=== PATIENT | male | born 1930 | race Caucasian/White ===

== ENCOUNTER → 2016-09-30 | Outpatient (CLI) | payer MEDICARE, BC ==
[2016-06-15 12:00] VITALS: BP 161/72
[~2016-09-30] MED LIST: AMLO10TA4 PO; ASCO-78 PO; CALC0.25 PO; FINA5TAB4 PO; FURO10SO PO; HYDR-971 PO; IRON150C9 PO; LEVO50TA PO; SAW450CA2 PO; TAMS0.4C2 PO; [UNRECOGNIZED DRUG - CODE] IJ
[2016-09-30 08:52] LABS: CALCIUM 9.1 mg/dL (8.5-10.1); GFR 11.1; POTASSIUM 4.3 mmol/L (3.5-5.1)
[2016-09-30 10:32] LABS: BASO % 1 % (0-3); EOS % 2 % (0-3); HEMOGLOBIN 11.9 g/dL (13.0-17.5); LYMPH # 0.7 x10^3/uL (1.0-4.8); LYMPH % 19 % (24-48); MEAN CORPUSCULAR HEMOGLOBIN 33 pg (25-35); MEAN CORPUSCULAR HGB CONC 34 g/dL (31-37); MEAN CORPUSCULAR VOLUME 97 fL (79-100); MONO % 13 % (0-9); NEUT % 66 % (31-73); PLATELET COUNT 103 x10^3/uL (140-400); RED BLOOD COUNT 3.62 x10^6/uL (4.30-5.70); RED CELL DISTRIBUTION WIDTH 13.6 % (11.5-14.5)
== END | disposition home or self-care (01) ==
LOC: LAB 08:11
PROVIDERS: ATTEND Internal Medicine Cardiovascular Disease
DX: I49.5 Sick sinus syndrome (principal)
CPT/HCPCS: 36415; 80048; 83735; 85027

== ENCOUNTER → 2016-10-09 | Outpatient (CLI) | payer MEDICARE, BC ==
[2016-06-15 12:00] VITALS: BP 161/72
[~2016-10-09] MED LIST changes: +BICA50TA4 PO; +FAMO20TA5 PO
== END | disposition home or self-care (01) ==
LOC: LAB 14:27
PROVIDERS: ATTEND Urology
DX: C61 Malignant neoplasm of prostate (principal)
CPT/HCPCS: 36415; 84153; G0103

== ENCOUNTER 2016-10-30 00:48 | Inpatient (IN) | payer MEDICARE, BC ==
[~2016-10-30] VITALS: Ht 172.7 cm; Wt 61.3 kg
[~2016-10-30 00:48] MED LIST changes: -FAMO20TA5 PO
[2016-10-30 01:21] LABS: BASO % 0 % (0-3); EOS % 1 % (0-3); HEMATOCRIT 26.5 % (39.0-53.0); HEMOGLOBIN 8.6 g/dL (13.0-17.5); LYMPH # 0.6 x10^3/uL (1.0-4.8); LYMPH % 8 % (24-48); MEAN CORPUSCULAR HEMOGLOBIN 32 pg (25-35); MEAN CORPUSCULAR HGB CONC 33 g/dL (31-37); MEAN CORPUSCULAR VOLUME 99 fL (79-100); MONO % 12 % (0-9); NEUT % 78 % (31-73); PLATELET COUNT 199 x10^3/uL (140-400); RED BLOOD COUNT 2.69 x10^6/uL (4.30-5.70); RED CELL DISTRIBUTION WIDTH 13.9 % (11.5-14.5); WHITE BLOOD COUNT 7.6 x10^3/uL (4.0-11.0)
[2016-10-30 01:30] LABS: INR 1.2 (0.8-1.1); PROTHROMBIN TIME PATIENT 14.8 SEC (11.7-14.0)
[2016-10-30 01:36] LABS: CREATININE 4.3 mg/dL (0.7-1.3); GFR 13.2; POTASSIUM 4.9 mmol/L (3.5-5.1)
[2016-10-30 01:49] LABS: ALBUMIN/GLOBULIN RATIO 0.9 (1.0-1.7); TOTAL BILIRUBIN 0.8 mg/dL (0.2-1.0); TOTAL PROTEIN 6.2 g/dL (6.4-8.2)
[2016-10-30] MEDS ORDERED: CONTRAST GIVEN MC PRN (02:45)
--- NOTE | 2016-10-30 02:52 | ED.ADGEN ---
Past Medical History Past Medical History: Cancer, CHF, GERD, Hypothyroid, Renal Failure, Unknown, Other Additional Past Medical Histor: BPH, ESRD, PROSTATE CA, WEGENERS GRANULOMATOSIS Past Surgical History: Pacemaker, Other Additional Past Surgical Histo: right dialysis fistula; hernia Additional Information: FORMER X 40 YEARS Alcohol Use: None Drug Use: None Adult General Chief Complaint Chief Complaint: MECHANICAL FALL HPI HPI Patient is a 86 year old man, history of CHF, end-stage renal disease on hemodialysis, which he receives Thursday, Thursday, Thursday, hypothyroidism, who presents emergency department from his nursing facility with report of dizziness. Patient states that he has been feeling lightheaded today, denies any syncope, any vertiginous type symptoms, chest pain, complains of mild shortness of breath, does not use oxygen at baseline, but is noted to be hypoxic in the mid 80s upon arrival to the ED, oxygen saturation improves to the mid 90s on 2 L nasal cannula. Heart rate is in the 60s to 80s. Denies any weakness, or tingling, any injuries. No headache or blurry vision. Patient was noted to be found by the nursing facility sitting on the ground. Patient is oriented 4, states that he lowered himself to the ground when he began feeling lightheaded, slid down against the wall. Did not fall, did not strike his head or neck, and is denying pain in the any areas. As far as he is aware he received a full dialysis on Thursday, denies any complications. Review of Systems Review of Systems Constitutional: Denies fever or chills. [] Eyes: Denies change in visual acuity. [] HENT: Denies nasal congestion or sore throat. [] Respiratory: Denies cough, complaining of shortness of breath. Cardiovascular: Denies chest pain or edema. [] GI: Denies abdominal pain, nausea, vomiting, bloody stools or diarrhea. [] : Denies dysuria. [] Musculoskeletal: Denies back pain or joint pain. [] Integument: Denies rash. [] Neurologic: Denies headache, focal weakness or sensory changes. [Dizziness, described as a lightheadedness.] Endocrine: Denies polyuria or polydipsia. [] Lymphatic: Denies swollen glands. [] Psychiatric: Denies depression or anxiety. [] Current Medications Current Medications Current Medications Medications (Trade) Dose Ordered Sig/Jaylin Start Time Stop Time Status Last Admin Dose Admin Acetaminophen (Tylenol) 650 mg PRN Q4HRS PRN 10/30/16 05:00 10/31/16 04:59 Info (Do NOT chart on this entry -- for MONITORING) 1 each PRN DAILY PRN 10/30/16 02:45 11/01/16 02:44 Iohexol (Omnipaque 300 Mg/ml) 75 ml 1X ONCE 10/30/16 03:00 10/30/16 03:01 DC 10/30/16 03:03 75 ML Allergies Allergies Allergies Coded Allergies Type Severity Reaction Last Updated Verified No Known Drug Allergies 03/20/14 No Physical Exam Physical Exam Constitutional: Well developed, well nourished, no acute distress, non-toxic appearance. [] HENT: Normocephalic, atraumatic, bilateral external ears normal, oropharynx moist, no oral exudates, nose normal. [] Eyes: PERRLA, EOMI, conjunctiva normal, no discharge. [] Neck: Normal range of motion, no tenderness, supple, no stridor. [] Cardiovascular:Heart rate regular rhythm, no murmur, S1, S2, positive for S3 as well. [] Lungs & Thorax: Diminished breath sounds at bases bilaterally with poor air movement, no rhonchi appreciated. No chest wall crepitus or tenderness. [] Abdomen: Bowel sounds normal, soft, no tenderness, no rebound, rigidity, no guarding, no masses, no pulsatile masses. [] Skin: Warm, dry, no erythema, no rash. [] Back: No tenderness, no CVA tenderness. [] Extremities: No tenderness, no cyanosis, no clubbing, ROM intact, no edema. Trace pitting edema bilaterally. Neurologic: Alert and oriented X 3, normal motor function, normal sensory function, no focal deficits noted. [] Psychologic: Affect normal, judgement normal, mood normal. [] Current Patient Data Vital Signs Vital Signs Date Time Temp Pulse Resp B/P Pulse Ox O2 Delivery O2 Flow Rate FiO2 10/30/16 01:18 99.0 65 20 149/65 95 Room Air 99.0 Lab Values Laboratory Tests Test 10/30/16 01:06 White Blood Count 7.6x10^3/uL (4.0-11.0) Red Blood Count 2.69x10^6/uL (4.30-5.70) L Hemoglobin 8.6g/dL (13.0-17.5) L Hematocrit 26.5% (39.0-53.0) L Mean Corpuscular Volume 99fL (79-100) Mean Corpuscular Hemoglobin 32pg (25-35) Mean Corpuscular Hemoglobin Concent 33g/dL (31-37) Red Cell Distribution Width 13.9% (11.5-14.5) Platelet Count 199x10^3/uL (140-400) Neutrophils (%) (Auto) 78% (31-73) H Lymphocytes (%) (Auto) 8% (24-48) L Monocytes (%) (Auto) 12% (0-9) H Eosinophils (%) (Auto) 1% (0-3) Basophils (%) (Auto) 0% (0-3) Neutrophils # (Auto) 5.9x10^3uL (1.8-7.7) Lymphocytes # (Auto) 0.6x10^3/uL (1.0-4.8) L Monocytes # (Auto) 0.9x10^3/uL (0.0-1.1) Eosinophils # (Auto) 0.1x10^3/uL (0.0-0.7) Basophils # (Auto) 0.0x10^3/uL (0.0-0.2) Prothrombin Time 14.8SEC (11.7-14.0) H Prothrombin Time INR 1.2 (0.8-1.1) H PTT 29SEC (24-38) Sodium Level 145mmol/L (136-145) Potassium Level 4.9mmol/L (3.5-5.1) Chloride Level 105mmol/L (98-107) Carbon Dioxide Level 31mmol/L (21-32) Anion Gap 9 (6-14) Blood Urea Nitrogen 43mg/dL (8-26) H Creatinine 4.3mg/dL (0.7-1.3) H Estimated GFR (Cockcroft-Gault) 13.2 BUN/Creatinine Ratio 10 (6-20) Glucose Level 109mg/dL (70-99) H Calcium Level 9.0mg/dL (8.5-10.1) Total Bilirubin 0.8mg/dL (0.2-1.0) Aspartate Amino Transferase (AST) 49U/L (15-37) H Alanine Aminotransferase (ALT) 37U/L (16-63) Alkaline Phosphatase 75U/L (46-116) Troponin I Quantitative 0.043ng/mL (0.000-0.055) AP-Qon-U-Type Natriuretic Peptide 06244sh/mL (0-449) H Total Protein 6.2g/dL (6.4-8.2) L Albumin 3.0g/dL (3.4-5.0) L Albumin/Globulin Ratio 0.9 (1.0-1.7) L Laboratory Tests 10/30/16 01:06 Laboratory Tests 10/30/16 01:06 EKG EKG EC: Sinus rhythm, heart rate 61 bpm, moderate baseline artifact noted, QTc of 406, QRS of 90, abnormal ECG, as interpreted by me. Does not meet STEMI criteria. [] Radiology/Procedures Radiology/Procedures Chest x-ray: One view: Patient noted to have an enlarged cardiac silhouette, concerning for pericardial effusion, no obvious infiltrates or effusions identified. No bony or other lung findings identified. [] [facility] [address] [place], [place] [id number] IMAGING REPORT Signed PATIENT: NELSON POWELL ACCOUNT: [id number] : 1930 LOCATION: ER AGE: 86 SEX: M EXAM STATUS: REG ER ORD. PHYSICIAN: TESS SANTIAGO DO REASON: Hypoxia/SOA/ESRD on HD, will get HD PROCEDURE: CTA CHEST PROCEDURE CT chest with contrast, pulmonary angiogram. HISTORY Hypoxia, shortness of air. End-stage renal disease. TECHNIQUE Helical CT imaging of the chest is performed after 75 cc Omnipaque 300 IV contrast using pulmonary angiogram protocol. 3D MIP reconstruction is performed. PQRS: One or more the following individualized dose reduction techniques were utilized for the study: 1. Automated exposure control. 2. Adjustment of the mA and/or kV according to patient size. 3. Use of iterative reconstruction technique. COMPARISON None. FINDINGS There is left chest dual chamber pacer. There is cardiomegaly. There is large pericardial effusion. The pulmonary arteries are adequately contrast opacified. There is no CT evidence of pulmonary embolus. There is no thoracic aortic dissection. No obvious adenopathy. Right upper extremity arteries are enlarged. Small bilateral pleural effusions, larger on the left. Central airways are patent. Respiratory motion artifact. There are patchy consolidations in the lower lobes, worse on the left. There are multiple bilateral renal cysts. Calcified granulomas in the spleen. Old compression fracture of the T9 vertebral body. IMPRESSION 1. No CT evidence of pulmonary embolus. 2. Large pericardial effusion. 3. Small bilateral pleural effusions. 4. Patchy consolidations in the lower lobes. Atelectasis or bronchopneumonia are considerations. 5. Cardiomegaly. Electronically signed by: Damon Tobar MD (Oct 30, 2016 03:18:32) DICTATED and SIGNED BY: DAMON TOBAR MD DATE: 10/30/16317 CC: TESS SANTIAGO DO; TINY BONDS MD ~ Course & Med Decision Making Course & Med Decision Making Pertinent Labs and Imaging studies reviewed. (See chart for details) Chest x-rays concerning for an enlarged cardiac silhouette, possible pericardial effusion, CT of the chest obtained due to hypoxia and chest findings , reveals no evidence of dissection, no evidence of PE, but a large pericardial effusion is in place. Patient's family is now bedside. They state the patient had a pericardial effusion that was noted during his previous admission at , but at that time he received dialysis, and the fluid" in his lungs and around his heart", was successfully resolved. At this time the patient remains asymptomatic in the emergency department, oxygen saturations in mid 90s on 2 L as stated, heart rate is in the 60s to 70s. He is agreeable for admission to the hospital for additional evaluation with cardiology and nephrology. Findings as above discussed with Dr. Perez of internal medicine, patient accepted to his service as a full admission to the cardiac telemetry floor, with consultation to cardiology and nephrology with bridge orders as stated. Dragon Disclaimer Dragon Disclaimer This electronic medical record was generated, in whole or in part, using a voice recognition dictation system. Departure Impression: Primary Impression: Pericardial effusion Disposition: ADMITTED INPATIENT Admitting Physician: Dalila Perez Condition: IMPROVED PAMELA,TESS M DO Oct 30, 2016 02:52
[2016-10-30] MEDS ORDERED: IOHEXOL 300 MG/ML 75 ML VIAL IV ONE (03:00)
--- NOTE | 2016-10-30 03:20 | RAD ---
PROCEDURE CT chest with contrast, pulmonary angiogram. HISTORY Hypoxia, shortness of air. End-stage renal disease. TECHNIQUE Helical CT imaging of the chest is performed after 75 cc Omnipaque 300 IV contrast using pulmonary angiogram protocol. 3D MIP reconstruction is performed. PQRS: One or more the following individualized dose reduction techniques were utilized for the study: 1. Automated exposure control. 2. Adjustment of the mA and/or kV according to patient size. 3. Use of iterative reconstruction technique. COMPARISON None. FINDINGS There is left chest dual chamber pacer. There is cardiomegaly. There is large pericardial effusion. The pulmonary arteries are adequately contrast opacified. There is no CT evidence of pulmonary embolus. There is no thoracic aortic dissection. No obvious adenopathy. Right upper extremity arteries are enlarged. Small bilateral pleural effusions, larger on the left. Central airways are patent. Respiratory motion artifact. There are patchy consolidations in the lower lobes, worse on the left. There are multiple bilateral renal cysts. Calcified granulomas in the spleen. Old compression fracture of the T9 vertebral body. IMPRESSION 1. No CT evidence of pulmonary embolus. 2. Large pericardial effusion. 3. Small bilateral pleural effusions. 4. Patchy consolidations in the lower lobes. Atelectasis or bronchopneumonia are considerations. 5. Cardiomegaly. Electronically signed by: Damon Tobar MD (Oct 30, 2016 03:18:32)
[2016-10-30] MEDS ORDERED: ACETAMINOPHEN 325 MG TABLET. PO PRN (05:00)
[2016-10-30 06:15] VITALS: BP 126/59
[2016-10-30 06:30] VITALS: BP 123/56
--- NOTE | 2016-10-30 07:29 | RAD ---
Portable chest, 10/30/2016: History: Syncope Comparison is made to a study from 10/14/2016. There are old and new transvenous pacing leads. A fractured lead seen on the previous study has been partially removed. The patient positioning is kyphotic with a suboptimal depth of inspiration. The heart is enlarged. There is calcific plaquing and tortuosity of the thoracic aorta. The pulmonary vascularity is congested. There is a left basilar opacity partially obscured by the overlying pacemaker generator. Correlation with the current CT study shows that this is due to a combination of pleural fluid and underlying atelectasis/infiltrate. There is minimal right basilar atelectasis/infiltrate. IMPRESSION: 1. Cardiomegaly with vascular congestion. 2. Moderate basilar opacity due to pleural fluid and underlying atelectasis/infiltrate.
--- NOTE | 2016-10-30 07:57 | EKG ---
[facility] [address] [place] [address] Test Date: 2016-10-30 Test Time: 01:07:13 Pat Name: NELSON POWELL Department: Room: [facility] Gender: M Audio Engineer: : 1930 Requested By: TESS SANTIAGO Order Number: [id number] Reading MD: Garret Ham Measurements Intervals [place] Rate: 61 P: [place]: QRS: 2 QRSD: 90 T: 15 QT: 402 QTc: 406 Interpretive Statements ATRIAL PACED RHYTHM Electronically Signed On 11-13-2016 14:54:57 ADMITTING SUPERVISOR by Garret Ham
[2016-10-30 08:00] VITALS: BP 129/55
--- NOTE | 2016-10-30 08:00 | EKG ---
[facility] [address] [place] [address] Test Date: 2016-10-30 Test Time: 05:08:44 Pat Name: NELSON POWELL Department: Room: [facility] Gender: M Zipper Cutter: : 1930 Requested By: GEN DOYLE Order Number: [id number] Reading MD: Garret Ham Measurements Intervals [place] Rate: 60 P: -102 DE: 158 QRS: -3 QRSD: 90 T: -16 QT: 406 QTc: 410 Interpretive Statements ATRIAL PACED RHYTHM Electronically Signed On 11-13-2016 14:56:24 PATENT SOLICITOR by Garret Ham
--- NOTE | 2016-10-30 09:10 | PDOC2 ---
HERNAN COHN MANAGER PACU 10/30/16 0909: CARDIAC CONSULT DATE OF CONSULT Date of Consult DATE: 10/30/16 TIME: 08:55 REASON FOR CONSULT Reason for Consult: Pericardial effusion REFERRING PHYSICIAN Referring Physician: Hector SOURCE Source: Caregiver, Chart review, Patient HISTORY OF PRESENT ILLNESS HISTORY OF PRESENT ILLNESS This is a pleasant 86 yo male admitted for noted lightheadedness and possible fall. He is s/p pacemaker/lead replacement >1 week ago. He was then discharged to SNU. He is a poor historian and could not remember much details of what transpired but according to chart review he was noted to be lightheaded and may have slid down to the floor. He was found sitting on the floor and he denies passing out, no CP but had some SOA. There was no notation of incontinence at that time or mention of stroke symptoms. Currently he is drowsy but able to communicate with me but could not recall much of the event. He was at the ED and he was noted with O2 sat in the 80s. There was no report of any diarrhea, nausea. He had HD yesterday which I was told by spouse that he did well. Consult is for pericardial effusion. 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 Endocrine: Hypothyroidism Dermatology: No pertinent hx PAST SURGICAL HISTORY Past Surgical History Pacemaker (about 20 yrs ago for initial then gen change >1 yr ago), Hernia Repair (right), Other (right arm dialysis AV fistula placement), Recent pacemaker/lead replacement FAMILY HISTORY Family History noncontributory SOCIAL HISTORY Social History Smoke: No (very remote 5 yrs total use) ALCOHOL: none Drugs: None Lives: with Family CURRENT MEDICATIONS CURRENT MEDICATIONS Current Medications Medications (Trade) Dose Ordered Sig/Jaylin Route PRN Reason Start Time Stop Time Status Last Admin Dose Admin Iohexol (Omnipaque 300 Mg/ml) 75 ml 1X ONCE IV 10/30/16 03:00 10/30/16 03:01 DC 10/30/16 03:03 ALLERGIES ALLERGIES: Coded Allergies: No Known Drug Allergies (Unverified , 03/20/14) ROS Review of System limited, poor historian, see HPI PHYSICAL EXAM General: Oriented X3, Cooperative, No acute distress, Other (drowsy) HEENT: Atraumatic, Mucous membr. moist/pink Heart: Regular rate (atrial paced), Normal S1, Normal S2, Other (3/6 systolic murmur to LLS border; S4) Abdomen: Soft, No tenderness Extremities: No cyanosis, Other (trace LE edema) Skin: No breakdown, No significant lesion Neuro: Normal speech, Sensation intact, Other Psych/Mental Status: Mental status NL, Mood NL MUSCULOSKELETAL: Osteoarthritic changes both hands VITALS VITALS Vital Signs Date Time Temp Pulse Resp B/P Pulse Ox O2 Delivery O2 Flow Rate FiO2 10/30/16 08:00 98.0 72 32 129/55 94 Venturi Mask 15.0 98.0 LABS Lab: Laboratory Tests Test 10/30/16 01:06 White Blood Count 7.6x10^3/uL (4.0-11.0) Red Blood Count 2.69x10^6/uL (4.30-5.70) Hemoglobin 8.6g/dL (13.0-17.5) Hematocrit 26.5% (39.0-53.0) Mean Corpuscular Volume 99fL (79-100) Mean Corpuscular Hemoglobin 32pg (25-35) Mean Corpuscular Hemoglobin Concent 33g/dL (31-37) Red Cell Distribution Width 13.9% (11.5-14.5) Platelet Count 199x10^3/uL (140-400) Neutrophils (%) (Auto) 78% (31-73) Lymphocytes (%) (Auto) 8% (24-48) Monocytes (%) (Auto) 12% (0-9) Eosinophils (%) (Auto) 1% (0-3) Basophils (%) (Auto) 0% (0-3) Neutrophils # (Auto) 5.9x10^3uL (1.8-7.7) Lymphocytes # (Auto) 0.6x10^3/uL (1.0-4.8) Monocytes # (Auto) 0.9x10^3/uL (0.0-1.1) Eosinophils # (Auto) 0.1x10^3/uL (0.0-0.7) Basophils # (Auto) 0.0x10^3/uL (0.0-0.2) Prothrombin Time 14.8SEC (11.7-14.0) Prothromb Time International Ratio 1.2 (0.8-1.1) Activated Partial Thromboplast Time 29SEC (24-38) Sodium Level 145mmol/L (136-145) Potassium Level 4.9mmol/L (3.5-5.1) Chloride Level 105mmol/L (98-107) Carbon Dioxide Level 31mmol/L (21-32) Anion Gap 9 (6-14) Blood Urea Nitrogen 43mg/dL (8-26) Creatinine 4.3mg/dL (0.7-1.3) Estimated GFR (Cockcroft-Gault) 13.2 BUN/Creatinine Ratio 10 (6-20) Glucose Level 109mg/dL (70-99) Calcium Level 9.0mg/dL (8.5-10.1) Total Bilirubin 0.8mg/dL (0.2-1.0) Aspartate Amino Transf (AST/SGOT) 49U/L (15-37) Alanine Aminotransferase (ALT/SGPT) 37U/L (16-63) Alkaline Phosphatase 75U/L (46-116) Troponin I Quantitative 0.043ng/mL (0.000-0.055) OT-Zji-[id number]-Type Natriuretic Peptide 14862be/mL (0-449) Total Protein 6.2g/dL (6.4-8.2) Albumin 3.0g/dL (3.4-5.0) Albumin/Globulin Ratio 0.9 (1.0-1.7) ECHOCARDIOGRAM ECHOCARDIOGRAM <Conclusion> The left ventricle is normal size. The left ventricular systolic function is normal and the ejection fraction is within normal range. Left ventricular ejection fraction of 55-60%. There is mild concentric left ventricular hypertrophy. The left atrium is moderately dilated. There is mild aortic valve stenosis. Calculated aortic valve area is 2.0 cm2 with maximum pressure gradient of 27 mmHg and mean pressure gradient of 15 mmHg. Doppler and Color Flow revealed mild to moderate aortic regurgitation. Doppler and Color-flow revealed mild to moderate mitral regurgitation. Doppler and Color Flow revealed moderate tricuspid regurgitation. The pulmonary artery systolic pressure is estimated at 42 mmHg. DATE: 10/15/16 1203 ASSESSMENT/PLAN ASSESSMENT/PLAN 1. Presyncope with associated hypoxia 2. Pericardial effusion: small to moderate via TTE. Hemodynamically stable. This could also be an inflammatory response from recent pacemaker placement 3. Acute on chronic diastolic CHF 4. SSS with PPM: currently atrial paced 5. Recent pacemaker replacement: in the last 1-2 weeks in . [employer] 6. Anemia of chronic disease: Hgb 8.6 7. HTN: controlled 8. 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 ESRD: HD schedule MWF Recommendations 1. Obtain surgical records in regards to pacemaker replacement 2. Short term steroid therapy is a consideration, will discuss with primary toilet attendant 3. Interrogate device and note any contributing arrhythmia 4. Continue with home cardiac regimen 5. Fluid off loading per HD. 6. Recommend pulmonary consult. Problems: MAURICE MISHRA MD 10/30/16 1704: CARDIAC CONSULT ALLERGIES ALLERGIES: Coded Allergies: No Known Drug Allergies (Unverified , 03/20/14) ASSESSMENT/PLAN ASSESSMENT/PLAN Patient seen and examined. Agree with CRA OFFICER's assessment and plan. Patient will recently underwent right ventricular lead revision and ?? explantation of previously placed lead at [facility] presented with near-syncope and was found to have pericardial effusion on CT scan. However, 2-D echo showed only small to moderate effusion without any evidence of tamponade. Continue fluid removal with hemodialysis for acute on chronic diastolic heart failure. Thank you for consultation. Problems: HERNAN COHN APRN Oct 30, 2016 09:09 MAURICE MISHRA MD Oct 30, 2016 17:04
--- NOTE | 2016-10-30 09:18 | CARD ---
APPROVED REPORT EXAM: Two-dimensional and M-mode echocardiogram with Doppler and color Doppler. Other Information Quality : Average Rhythm : NSR INDICATION Pericardial Effusion 2D DIMENSIONS Left Atrium(2D)3.3 (1.6-4.0cm)IVSd1.3 (0.7-1.1cm) Aortic Root(2D)3.1 (2.0-3.7cm)LVDd3.9 (3.9-5.9cm) LVOT Diameter2.3 (1.8-2.4cm)PWd1.3 (0.7-1.1cm) LVDs2.9 (2.5-4.0cm)FS (%) 34.9 % SV33.2 mlLVEF(%)59.9 (>50%) Aortic Valve AoV Peak Abdirahman.262.7cm/sAoV VTI60.7cm AO Peak GR.27.6mmHgLVOT Peak Abdirahman.101.5cm/s AO Mean GR.14mmHgAVA (VMAX)1.62cm2 HEENA (VTI)1.04pk7HY P 1/2 Stxw996uk Mitral Valve MV E Iiudzohe68.0cm/sMV DECEL WDDQ000rk MV A Thptivfl52.4cm/sE/A Ratio0.8 MV A Xccagcby103ll Tricuspid Valve TR P. Fwsiaeik687sz/sRAP LKANYDDM0znUn TR Peak Gr.78rjAqKWJX42jbCc LEFT VENTRICLE The left ventricle is normal size. There is borderline to mild concentric left ventricular hypertroph y. Left ventricle systolic function is normal. The Ejection Fraction is 55-60%. There is normal LV se gmental wall motion. The left ventricular diastolic function and filling is normal for age. RIGHT VENTRICLE The right ventricle is normal size. The right ventricular systolic function is normal. There is a pac emaker lead seen in the RV/RA. ATRIA The left atrium size is normal. The right atrium size is normal. The interatrial septum is intact wit h no evidence for an atrial septal defect or patent foramen ovale as noted on 2-D or Doppler imaging. AORTIC VALVE The aortic valve is calcified and displays decreased opening. Doppler and Color Flow revealed mild ao rtic regurgitation. Calculated aortic valve area is 1.6 cm2 with maximum pressure gradient of 28 mmHg and mean pressure gradient of 14 mmHg. Doppler and color-flow analysis revealed mild aortic stenosis . MITRAL VALVE Mitral annular calcification is moderate. There is no mitral valve stenosis. Doppler and Color Flow r evealed trace mitral regurgitation. TRICUSPID VALVE The tricuspid valve is normal in structure and function. Doppler and Color Flow revealed mild tricusp id regurgitation. The PA pressure was estimated at 30 mmHg. There is no tricuspid valve stenosis. PULMONIC VALVE Doppler and Color Flow revealed no pulmonic valvular regurgitation. There is no pulmonic valvular tariq nosis. GREAT VESSELS The aortic root is normal in size. The IVC is normal in size and collapses >50% with inspiration. PERICARDIAL EFFUSION There is a small to moderate sized circumferential pericardial effusion. There is no echocardiographi c evidence of tamponade. Critical Notification Critical Value: No <Conclusion> Left ventricle systolic function is normal. The Ejection Fraction is 55-60%. There is normal LV segmental wall motion. There is a pacemaker lead seen in the RV/RA. Calculated aortic valve area is 1.6 cm2 with maximum pressure gradient of 28 mmHg and mean pressure g radient of 14 mmHg. Doppler and color-flow analysis revealed mild aortic stenosis. The IVC is normal in size and collapses >50% with inspiration. There is a small to moderate sized circumferential pericardial effusion. There is no echocardiographi c evidence of tamponade.
--- NOTE | 2016-10-30 11:19 | PDOC2 ---
CONSULT Date of Consult Date of Consult DATE: 10/30/16 TIME: 11:15 Reason for Consult Reason for Consult: ESRD Referring Physician Referring Physician: YANIRA Identification/Chief Complaint Chief Complaint SOB AND WEAKNESS Source Source: Chart review, Patient History of Present Illness Reason for Visit: THIS IS AN 86 YR OLD ADMITTED WITH SOB AND NEAR FAINTING. HE WAS HYPOXIC ON ADMIT. CXRAY IS CONCERNING FOR CHF. HE HAS OP HD ON MWF AND WENT TO HIS TX YESTERDAY. CARDIOLOGY EVAL IS ONGOING FOR SSS AND PPM RELATED ISSUES. LABS ARE C /W ESRD Past Medical History Cardiovascular: HTN, Valve insufficiency, Other CENTRAL NERVOUS SYSTEM: Other GI: Diverticulosis Heme/Onc: Anemia NOS, Cancer Musculoskeletal: low back pain, Osteoarthritis, Other Rheumatologic: Other Infectious disease: No pertinent hx Renal/: Chronic renal failure, Benign prostatic enlarg. Endocrine: Hypothyroidism, Hyperparathyroidism Past Surgical History Past Surgical History: Pacemaker, Hernia Repair, Other Family History Family History: Heart Disease Social History ALCOHOL: none Drugs: None Lives: with Family Current Problem List Problem List Problems Medical Problems: (1) Pericardial effusion Status: Acute (2) Syncope Status: Acute Current Medications Current Medications Current Medications Iohexol (Omnipaque 300 Mg/ml) 75 ml 1X ONCE IV Last administered on 10/30/16t 03:03; Start 10/30/16 at 03:00; Stop 10/30/16 at 03:01; Status DC Info (Do NOT chart on this entry -- for MONITORING) 1 each PRN DAILY PRN MC SEE COMMENTS; Start 10/30/16 at 02:45; Stop 11/01/16 at 02:44 Acetaminophen (Tylenol) 650 mg PRN Q4HRS PRN PO FEVER; Start 10/30/16 at 05:00 ; Stop 10/31/16 at 04:59 Active Scripts Active Reported Casodex (Bicalutamide) 50 Mg Tablet 1 Tab PO DAILY16 Tamsulosin Hcl 0.4 Mg Cap.er.24h 1 Cap PO QHS Procrit (Epoetin Emigdio) 4,000 Unit/1 Ml Vial 5,000 Unit IJ Q2WKS Saw [place] (Saw [place] Fruit) 450 Mg Capsule 900 Mg PO DAILY Synthroid (Levothyroxine Sodium) 50 Mcg Tablet 75 Mcg PO DAILYAC Norvasc (Amlodipine Besylate) 10 Mg Tablet 5 Mg PO DAILY Calcitriol 0.25 Mcg Capsule 0.25 Mcg PO 4 TABLETS PER WEEK Finasteride 5 Mg Tablet 5 Mg PO DAILY Furosemide 10 Mg/1 Ml Solution 10 Mg PO DAILY Vitamin C (Ascorbate Calcium) 500 Mg Tablet 500 Mg PO DAILY Allergies Allergies: Coded Allergies: No Known Drug Allergies (Unverified , 03/20/14) ROS General: YES: Appetite, Fatigue, Malaise PSYCHOLOGICAL ROS: YES: Anxiety Eyes: Yes Decreased vision HEENT: YES: Heacaches Respiratory: YES: Cough, Shortness of breath Cardiovascular: yes Orthopnea Gastrointestinal: Yes Constipation Genitourinary: YES Other (ANURIA) Musculoskeletal: Yes Muscular Weakness Neurological: Yes Weakness Skin: Yes Dry Skin Physical Exam General: Alert, Cooperative HEENT: Atraumatic, PERRLA Lungs: Other (BASILAR RALES) Heart: Regular rate Abdomen: Normal bowel sounds, Soft, No tenderness Extremities: No clubbing Skin: No rashes Neuro: Cranial nerves 3-12 NL Psych/Mental Status: Mental status NL, Mood NL MUSCULOSKELETAL: No deformity, No swelling Vitals VITALS Vital Signs Date Time Temp Pulse Resp B/P Pulse Ox O2 Delivery O2 Flow Rate FiO2 10/30/16 08:00 98.0 72 32 129/55 94 Venturi Mask 15.0 98.0 Labs Labs Laboratory Tests Test 10/30/16 01:06 White Blood Count 7.6x10^3/uL (4.0-11.0) Red Blood Count 2.69x10^6/uL (4.30-5.70) Hemoglobin 8.6g/dL (13.0-17.5) Hematocrit 26.5% (39.0-53.0) Mean Corpuscular Volume 99fL (79-100) Mean Corpuscular Hemoglobin 32pg (25-35) Mean Corpuscular Hemoglobin Concent 33g/dL (31-37) Red Cell Distribution Width 13.9% (11.5-14.5) Platelet Count 199x10^3/uL (140-400) Neutrophils (%) (Auto) 78% (31-73) Lymphocytes (%) (Auto) 8% (24-48) Monocytes (%) (Auto) 12% (0-9) Eosinophils (%) (Auto) 1% (0-3) Basophils (%) (Auto) 0% (0-3) Neutrophils # (Auto) 5.9x10^3uL (1.8-7.7) Lymphocytes # (Auto) 0.6x10^3/uL (1.0-4.8) Monocytes # (Auto) 0.9x10^3/uL (0.0-1.1) Eosinophils # (Auto) 0.1x10^3/uL (0.0-0.7) Basophils # (Auto) 0.0x10^3/uL (0.0-0.2) Prothrombin Time 14.8SEC (11.7-14.0) Prothromb Time International Ratio 1.2 (0.8-1.1) Activated Partial Thromboplast Time 29SEC (24-38) Sodium Level 145mmol/L (136-145) Potassium Level 4.9mmol/L (3.5-5.1) Chloride Level 105mmol/L (98-107) Carbon Dioxide Level 31mmol/L (21-32) Anion Gap 9 (6-14) Blood Urea Nitrogen 43mg/dL (8-26) Creatinine 4.3mg/dL (0.7-1.3) Estimated GFR (Cockcroft-Gault) 13.2 BUN/Creatinine Ratio 10 (6-20) Glucose Level 109mg/dL (70-99) Calcium Level 9.0mg/dL (8.5-10.1) Total Bilirubin 0.8mg/dL (0.2-1.0) Aspartate Amino Transf (AST/SGOT) 49U/L (15-37) Alanine Aminotransferase (ALT/SGPT) 37U/L (16-63) Alkaline Phosphatase 75U/L (46-116) Troponin I Quantitative 0.043ng/mL (0.000-0.055) BS-Csy-Q-Type Natriuretic Peptide 36237yl/mL (0-449) Total Protein 6.2g/dL (6.4-8.2) Albumin 3.0g/dL (3.4-5.0) Albumin/Globulin Ratio 0.9 (1.0-1.7) Laboratory Tests Test 10/30/16 01:06 White Blood Count 7.6x10^3/uL (4.0-11.0) Red Blood Count 2.69x10^6/uL (4.30-5.70) Hemoglobin 8.6g/dL (13.0-17.5) Hematocrit 26.5% (39.0-53.0) Mean Corpuscular Volume 99fL (79-100) Mean Corpuscular Hemoglobin 32pg (25-35) Mean Corpuscular Hemoglobin Concent 33g/dL (31-37) Red Cell Distribution Width 13.9% (11.5-14.5) Platelet Count 199x10^3/uL (140-400) Neutrophils (%) (Auto) 78% (31-73) Lymphocytes (%) (Auto) 8% (24-48) Monocytes (%) (Auto) 12% (0-9) Eosinophils (%) (Auto) 1% (0-3) Basophils (%) (Auto) 0% (0-3) Neutrophils # (Auto) 5.9x10^3uL (1.8-7.7) Lymphocytes # (Auto) 0.6x10^3/uL (1.0-4.8) Monocytes # (Auto) 0.9x10^3/uL (0.0-1.1) Eosinophils # (Auto) 0.1x10^3/uL (0.0-0.7) Basophils # (Auto) 0.0x10^3/uL (0.0-0.2) Prothrombin Time 14.8SEC (11.7-14.0) Prothromb Time International Ratio 1.2 (0.8-1.1) Activated Partial Thromboplast Time 29SEC (24-38) Sodium Level 145mmol/L (136-145) Potassium Level 4.9mmol/L (3.5-5.1) Chloride Level 105mmol/L (98-107) Carbon Dioxide Level 31mmol/L (21-32) Anion Gap 9 (6-14) Blood Urea Nitrogen 43mg/dL (8-26) Creatinine 4.3mg/dL (0.7-1.3) Estimated GFR (Cockcroft-Gault) 13.2 BUN/Creatinine Ratio 10 (6-20) Glucose Level 109mg/dL (70-99) Calcium Level 9.0mg/dL (8.5-10.1) Total Bilirubin 0.8mg/dL (0.2-1.0) Aspartate Amino Transf (AST/SGOT) 49U/L (15-37) Alanine Aminotransferase (ALT/SGPT) 37U/L (16-63) Alkaline Phosphatase 75U/L (46-116) Troponin I Quantitative 0.043ng/mL (0.000-0.055) YR-Ony-G-Type Natriuretic Peptide 02755cl/mL (0-449) Total Protein 6.2g/dL (6.4-8.2) Albumin 3.0g/dL (3.4-5.0) Albumin/Globulin Ratio 0.9 (1.0-1.7) Assessment/Plan Assessment/Plan IMP ACUTE CHF-PROB DIASTOLIC ANEMIA HYPOXIA ESRD PLAN CARDIOLOGY EVAL AND TX HD TODAY UF TO DW AND CHALLENGE DW WILL NEED TO ESTABLISH NEW DW ARANESP WILL FOLLOW JEWEL GALAVIZ MD Oct 30, 2016 11:19
[2016-10-30 12:00] VITALS: BP 137/57
--- NOTE | 2016-10-30 13:53 | PDOC1 ---
History and Physical Date of Admission Date of Admission 10/30/16 Identification/Chief Complaint Chief Complaint syncope Problems: Source Source: Caregiver, Chart review History of Present Illness History of Present Illness Patient is a 86 year old male who presents after syncopal episode. at bedside and watched the episode. 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 Pt was here last month for same thing, at that time pt also didnot know what happened, and just felt light headed. Pt was transferred to on 2nd day with card for PPM change. As per , pt was dced to rehab, syncoped 3 times there ,and sent here for syncope. pt got CT which showed large pericardial effusion. Past Medical History Cardiovascular: HTN, Valve insufficiency, Other CENTRAL NERVOUS SYSTEM: Other GI: Diverticulosis Heme/Onc: Anemia NOS, Cancer Rheumatologic: Other Infectious disease: No pertinent hx Renal/: Chronic renal failure, Benign prostatic enlarg. Endocrine: Hypothyroidism, Hyperparathyroidism Past Surgical History Past Surgical History: Pacemaker, Hernia Repair, Other Family History Family History: Heart Disease Social History Smoke: No ALCOHOL: none Drugs: None Current Problem List Problem List Problems Medical Problems: (1) Pericardial effusion Status: Acute (2) Syncope Status: Acute Current Medications Current Medications Current Medications Medications (Trade) Dose Ordered Sig/Jaylin Start Time Stop Time Status Last Admin Dose Admin Acetaminophen (Tylenol) 650 mg PRN Q4HRS PRN 10/30/16 05:00 10/31/16 04:59 Darbepoetin Emigdio (Aranesp) 60 mcg Th 10/30/16 21:00 Info (Do NOT chart on this entry -- for MONITORING) 1 each PRN DAILY PRN 10/30/16 02:45 11/01/16 02:44 Iohexol (Omnipaque 300 Mg/ml) 75 ml 1X ONCE 10/30/16 03:00 10/30/16 03:01 DC 10/30/16 03:03 75 ML Allergies Allergies Allergies Coded Allergies Type Severity Reaction Last Updated Verified No Known Drug Allergies 03/20/14 No ROS Review of System CONSTITUTIONAL: No fever or chills EYES: No recent changes SKIN: No rash or itching CARDIOVASCULAR: No chest pain, syncope, palpitations, or edema RESPIRATORY: No SOB or cough GASTROINTESTINAL: No nausea, vomiting or abdominal pain NEUROLOGICAL: No headaches or weakness ENDOCRINE: No cold or heat intolerance GENITOURINARY: No urgency or frequency of urination MUSCULOSKELETAL: No back pain or joint pain LYMPHATICS: No enlarged lymph nodes PSYCHIATRIC: No anxiety or depression Physical Exam Physical Exam GEN.: No apparent distress. Alert and oriented. very weak. HEENT: Head is normocephalic, atraumatic NECK: Supple. LUNGS: bl decreased bs. HEART: RRR, S1, S2 present. Peripheral pulses intact ABDOMEN: Soft, nontender. Positive bowel sounds. EXTREMITIES: Without any cyanosis. NEUROLOGIC: Normal speech, normal tone PSYCHIATRIC: Normal affect, normal mood. SKIN: No ulcerations Vitals Vitals Vital Signs Date Time Temp Pulse Resp B/P Pulse Ox O2 Delivery O2 Flow Rate FiO2 10/30/16 12:00 97.9 60 24 137/57 87 Venturi Mask 15.0 97.9 Labs Labs Laboratory Tests Test 10/30/16 01:06 White Blood Count 7.6x10^3/uL (4.0-11.0) Red Blood Count 2.69x10^6/uL (4.30-5.70) Hemoglobin 8.6g/dL (13.0-17.5) Hematocrit 26.5% (39.0-53.0) Mean Corpuscular Volume 99fL (79-100) Mean Corpuscular Hemoglobin 32pg (25-35) Mean Corpuscular Hemoglobin Concent 33g/dL (31-37) Red Cell Distribution Width 13.9% (11.5-14.5) Platelet Count 199x10^3/uL (140-400) Neutrophils (%) (Auto) 78% (31-73) Lymphocytes (%) (Auto) 8% (24-48) Monocytes (%) (Auto) 12% (0-9) Eosinophils (%) (Auto) 1% (0-3) Basophils (%) (Auto) 0% (0-3) Neutrophils # (Auto) 5.9x10^3uL (1.8-7.7) Lymphocytes # (Auto) 0.6x10^3/uL (1.0-4.8) Monocytes # (Auto) 0.9x10^3/uL (0.0-1.1) Eosinophils # (Auto) 0.1x10^3/uL (0.0-0.7) Basophils # (Auto) 0.0x10^3/uL (0.0-0.2) Prothrombin Time 14.8SEC (11.7-14.0) Prothromb Time International Ratio 1.2 (0.8-1.1) Activated Partial Thromboplast Time 29SEC (24-38) Sodium Level 145mmol/L (136-145) Potassium Level 4.9mmol/L (3.5-5.1) Chloride Level 105mmol/L (98-107) Carbon Dioxide Level 31mmol/L (21-32) Anion Gap 9 (6-14) Blood Urea Nitrogen 43mg/dL (8-26) Creatinine 4.3mg/dL (0.7-1.3) Estimated GFR (Cockcroft-Gault) 13.2 BUN/Creatinine Ratio 10 (6-20) Glucose Level 109mg/dL (70-99) Calcium Level 9.0mg/dL (8.5-10.1) Total Bilirubin 0.8mg/dL (0.2-1.0) Aspartate Amino Transf (AST/SGOT) 49U/L (15-37) Alanine Aminotransferase (ALT/SGPT) 37U/L (16-63) Alkaline Phosphatase 75U/L (46-116) Troponin I Quantitative 0.043ng/mL (0.000-0.055) QB-Nun-R-Type Natriuretic Peptide 90669oy/mL (0-449) Total Protein 6.2g/dL (6.4-8.2) Albumin 3.0g/dL (3.4-5.0) Albumin/Globulin Ratio 0.9 (1.0-1.7) Laboratory Tests Test 10/30/16 01:06 White Blood Count 7.6x10^3/uL (4.0-11.0) Red Blood Count 2.69x10^6/uL (4.30-5.70) Hemoglobin 8.6g/dL (13.0-17.5) Hematocrit 26.5% (39.0-53.0) Mean Corpuscular Volume 99fL (79-100) Mean Corpuscular Hemoglobin 32pg (25-35) Mean Corpuscular Hemoglobin Concent 33g/dL (31-37) Red Cell Distribution Width 13.9% (11.5-14.5) Platelet Count 199x10^3/uL (140-400) Neutrophils (%) (Auto) 78% (31-73) Lymphocytes (%) (Auto) 8% (24-48) Monocytes (%) (Auto) 12% (0-9) Eosinophils (%) (Auto) 1% (0-3) Basophils (%) (Auto) 0% (0-3) Neutrophils # (Auto) 5.9x10^3uL (1.8-7.7) Lymphocytes # (Auto) 0.6x10^3/uL (1.0-4.8) Monocytes # (Auto) 0.9x10^3/uL (0.0-1.1) Eosinophils # (Auto) 0.1x10^3/uL (0.0-0.7) Basophils # (Auto) 0.0x10^3/uL (0.0-0.2) Prothrombin Time 14.8SEC (11.7-14.0) Prothromb Time International Ratio 1.2 (0.8-1.1) Activated Partial Thromboplast Time 29SEC (24-38) Sodium Level 145mmol/L (136-145) Potassium Level 4.9mmol/L (3.5-5.1) Chloride Level 105mmol/L (98-107) Carbon Dioxide Level 31mmol/L (21-32) Anion Gap 9 (6-14) Blood Urea Nitrogen 43mg/dL (8-26) Creatinine 4.3mg/dL (0.7-1.3) Estimated GFR (Cockcroft-Gault) 13.2 BUN/Creatinine Ratio 10 (6-20) Glucose Level 109mg/dL (70-99) Calcium Level 9.0mg/dL (8.5-10.1) Total Bilirubin 0.8mg/dL (0.2-1.0) Aspartate Amino Transf (AST/SGOT) 49U/L (15-37) Alanine Aminotransferase (ALT/SGPT) 37U/L (16-63) Alkaline Phosphatase 75U/L (46-116) Troponin I Quantitative 0.043ng/mL (0.000-0.055) IF-Fmu-Q-Type Natriuretic Peptide 28994qn/mL (0-449) Total Protein 6.2g/dL (6.4-8.2) Albumin 3.0g/dL (3.4-5.0) Albumin/Globulin Ratio 0.9 (1.0-1.7) VTE Prophylaxis Ordered VTE Prophylaxis Devices: Yes VTE Pharmacological Prophylaxi: Yes Assessment/Plan Assessment/Plan 1 .syncope, recurrent, 2/2 cardiac dz likely 2. pericardial effusion, moderate 3. bl lung some infiltrate 4. PPM, recently changed 5. ESRD on HD mwf 6. anemia , chronic 7. 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 fu with card, renal, and pulm consult 2. on zosyn and vanco as per pulm 3. fu with card, may need tap for pericardial effusion, need to rule out met 4. cont home meds , cont HD dvt ppx. ptot VIVEK GUEVARA MD Oct 30, 2016 13:53
--- NOTE | 2016-10-30 13:55 | PDOC ---
PULMONARY PROGRESS NOTES Vitals Vital Signs Date Time Temp Pulse Resp B/P Pulse Ox O2 Delivery O2 Flow Rate FiO2 10/30/16 12:00 97.9 60 24 137/57 87 Venturi Mask 15.0 97.9 Labs Laboratory Tests Test 10/30/16 01:06 White Blood Count 7.6x10^3/uL (4.0-11.0) Red Blood Count 2.69x10^6/uL (4.30-5.70) Hemoglobin 8.6g/dL (13.0-17.5) Hematocrit 26.5% (39.0-53.0) Mean Corpuscular Volume 99fL (79-100) Mean Corpuscular Hemoglobin 32pg (25-35) Mean Corpuscular Hemoglobin Concent 33g/dL (31-37) Red Cell Distribution Width 13.9% (11.5-14.5) Platelet Count 199x10^3/uL (140-400) Neutrophils (%) (Auto) 78% (31-73) Lymphocytes (%) (Auto) 8% (24-48) Monocytes (%) (Auto) 12% (0-9) Eosinophils (%) (Auto) 1% (0-3) Basophils (%) (Auto) 0% (0-3) Neutrophils # (Auto) 5.9x10^3uL (1.8-7.7) Lymphocytes # (Auto) 0.6x10^3/uL (1.0-4.8) Monocytes # (Auto) 0.9x10^3/uL (0.0-1.1) Eosinophils # (Auto) 0.1x10^3/uL (0.0-0.7) Basophils # (Auto) 0.0x10^3/uL (0.0-0.2) Prothrombin Time 14.8SEC (11.7-14.0) Prothromb Time International Ratio 1.2 (0.8-1.1) Activated Partial Thromboplast Time 29SEC (24-38) Sodium Level 145mmol/L (136-145) Potassium Level 4.9mmol/L (3.5-5.1) Chloride Level 105mmol/L (98-107) Carbon Dioxide Level 31mmol/L (21-32) Anion Gap 9 (6-14) Blood Urea Nitrogen 43mg/dL (8-26) Creatinine 4.3mg/dL (0.7-1.3) Estimated GFR (Cockcroft-Gault) 13.2 BUN/Creatinine Ratio 10 (6-20) Glucose Level 109mg/dL (70-99) Calcium Level 9.0mg/dL (8.5-10.1) Total Bilirubin 0.8mg/dL (0.2-1.0) Aspartate Amino Transf (AST/SGOT) 49U/L (15-37) Alanine Aminotransferase (ALT/SGPT) 37U/L (16-63) Alkaline Phosphatase 75U/L (46-116) Troponin I Quantitative 0.043ng/mL (0.000-0.055) ZG-Jri-U-Type Natriuretic Peptide 53690ee/mL (0-449) Total Protein 6.2g/dL (6.4-8.2) Albumin 3.0g/dL (3.4-5.0) Albumin/Globulin Ratio 0.9 (1.0-1.7) Laboratory Tests Test 10/30/16 01:06 White Blood Count 7.6x10^3/uL (4.0-11.0) Red Blood Count 2.69x10^6/uL (4.30-5.70) Hemoglobin 8.6g/dL (13.0-17.5) Hematocrit 26.5% (39.0-53.0) Mean Corpuscular Volume 99fL (79-100) Mean Corpuscular Hemoglobin 32pg (25-35) Mean Corpuscular Hemoglobin Concent 33g/dL (31-37) Red Cell Distribution Width 13.9% (11.5-14.5) Platelet Count 199x10^3/uL (140-400) Neutrophils (%) (Auto) 78% (31-73) Lymphocytes (%) (Auto) 8% (24-48) Monocytes (%) (Auto) 12% (0-9) Eosinophils (%) (Auto) 1% (0-3) Basophils (%) (Auto) 0% (0-3) Neutrophils # (Auto) 5.9x10^3uL (1.8-7.7) Lymphocytes # (Auto) 0.6x10^3/uL (1.0-4.8) Monocytes # (Auto) 0.9x10^3/uL (0.0-1.1) Eosinophils # (Auto) 0.1x10^3/uL (0.0-0.7) Basophils # (Auto) 0.0x10^3/uL (0.0-0.2) Prothrombin Time 14.8SEC (11.7-14.0) Prothromb Time International Ratio 1.2 (0.8-1.1) Activated Partial Thromboplast Time 29SEC (24-38) Sodium Level 145mmol/L (136-145) Potassium Level 4.9mmol/L (3.5-5.1) Chloride Level 105mmol/L (98-107) Carbon Dioxide Level 31mmol/L (21-32) Anion Gap 9 (6-14) Blood Urea Nitrogen 43mg/dL (8-26) Creatinine 4.3mg/dL (0.7-1.3) Estimated GFR (Cockcroft-Gault) 13.2 BUN/Creatinine Ratio 10 (6-20) Glucose Level 109mg/dL (70-99) Calcium Level 9.0mg/dL (8.5-10.1) Total Bilirubin 0.8mg/dL (0.2-1.0) Aspartate Amino Transf (AST/SGOT) 49U/L (15-37) Alanine Aminotransferase (ALT/SGPT) 37U/L (16-63) Alkaline Phosphatase 75U/L (46-116) Troponin I Quantitative 0.043ng/mL (0.000-0.055) XB-Luu-H-Type Natriuretic Peptide 85251zm/mL (0-449) Total Protein 6.2g/dL (6.4-8.2) Albumin 3.0g/dL (3.4-5.0) Albumin/Globulin Ratio 0.9 (1.0-1.7) Medications Active Scripts Medications Dose Route/Sig Days Date Category Casodex (Bicalutamide) 50 Mg Tablet 1 Tab PO DAILY16 10/14/16 Reported Tamsulosin Hcl 0.4 Mg Cap.er.24h 1 Cap PO QHS 01/27/16 Reported Procrit (Epoetin Emigdio) 4,000 Unit/1 Ml Vial 5,000 Unit IJ Q2WKS 03/20/14 Reported Saw [place] (Saw [place] Fruit) 450 Mg Capsule 900 Mg PO DAILY 03/13/14 Reported Synthroid (Levothyroxine Sodium) 50 Mcg Tablet 75 Mcg PO DAILYAC 03/13/14 Reported Norvasc (Amlodipine Besylate) 10 Mg Tablet 5 Mg PO DAILY 03/13/14 Reported Calcitriol 0.25 Mcg Capsule 0.25 Mcg PO 4 TABLETS PER WEEK 03/13/14 Reported Finasteride 5 Mg Tablet 5 Mg PO DAILY 03/13/14 Reported Furosemide 10 Mg/1 Ml Solution 10 Mg PO DAILY 03/13/14 Reported Vitamin C (Ascorbate Calcium) 500 Mg Tablet 500 Mg PO DAILY 03/13/14 Reported Impression . FULL CONSULT DICTATED ACUTE RESP FAILURE MULTIFACTORIAL ACUTE HEART FAILURE POSSIBLE GRAM NEG/POS PNEUMONIA SEE ORDERS THANKS JESSE MILIAN MD Oct 30, 2016 13:54
[2016-10-30] MEDS ORDERED: ALBUTEROL SULFATE 2.5 MG/3 ML NEBU. NEB PRN (14:00)
[2016-10-30] MEDS ORDERED: PIP/TAZO PER PHARMACY MC PRN (14:00)
[2016-10-30] MEDS ORDERED: ONDANSETRON PF 4 MG/2 ML VIAL. IV PRN (14:15)
[2016-10-30] MEDS: VANCOMYCIN PER PHARMACY MC PRN (14:17)
[2016-10-30] MEDS: PIPERACILLIN/TAZOBACTAM 2.25 GM in IV NORMAL SALINE 50ML 50 ML IV SCH ×2 (14:30→23:07)
[2016-10-30] MEDS ORDERED: DIALYSIS PATIENT. MC PRN ×3 (14:45→16:45)
[2016-10-30] MEDS ORDERED: VANCOMYCIN 1.5 GM in IV NORMAL SALINE 500ML BAG 500 ML IV ONE (15:00)
[2016-10-30 16:00] VITALS: BP 108/37
[2016-10-30] MEDS: ACETAMINOPHEN 325 MG TABLET. PO PRN (16:41)
--- NOTE | 2016-10-30 17:17 | ACF ---
Admission Forms Criteria INTENSIVE CARE UNIT ADMISSION Intensive Care Admission Guidelines ( Place 'X' for any and all applicable criteria): Admission to ICU may be indicated when need is demonstrated by ANY ONE of the following (1)(2)(3)(4)(5)(6)(7)(8)(9) : [ ]I. Vital sign abnormalities, including ANY ONE of the following: [ ]a) Systolic arterial pressure less than 90 mm Hg, or 20 mm Hg below the patient's usual pressure [ ]b) Diastolic arterial pressure greater than 120 mm Hg [ ]c) Mean arterial pressure less than 70 mm Hg [A] [ ]d) Pulse less than 40 or greater than 140 beats per minute (in adult) [ ]e) Respiratory rate greater than 35 or less than 8 breaths per minute [X]II. Laboratory findings (new), including ANY ONE of the following (10): [X]a) Saturation of arterial oxygen less than 88% or partial pressure of oxygen less than 60 mm Hg (8.0 kPa) despite oxygen supplementation [ ]b) Rising partial pressure of carbon dioxide with respiratory acidosis [ ]c) pH less than 7.2 or greater than 7.65 [ ]d) Serum glucose greater than 800 mg/dL (44.4 mmol/L) [ ]e) Serum sodium less than 110 mEq/L (mmol/L) or greater than 160 mEq/L (mmol/L) [ ]f) Serum potassium less than 2 mEq/L (mmol/L) or greater than 7 mEq /L (mmol/L) [ ]g) Serum calcium greater than 15 mg/dL (3.75 mmol/L) [ ]h) Serum phosphorus less than 1 mg/dL (0.32 mmol/L) [ ]i) Toxic drug level or poisoning causing or likely to cause neurologic or Hemodynamic instability [ ]j) Less severe laboratory abnormalities contributing to ANY ONE of the following: [ ]i) Seizure [ ]ii) Altered mental status [ ]iii) Muscle weakness [ ]iv) Arrhythmias [ ]v) Hemodynamic instability [ ]vi) Other significant clinical manifestations [ ]III. Electrocardiogram (or cardiac monitoring) findings, including ANY ONE of the following: [ ]a) Inherently unstable or life-threatening arrhythmia (eg, sustained ventricular tachycardia, ventricular fibrillation, asystole) [ ]b) Arrhythmia causing severe hypotension (eg, bradycardia, tachycardia) [ ]c) Complete heart block causing severe hypotension [ ]d) Other findings indicative of a need for intensive care (eg , NV) [ ]IV.Physical findings, including ANY ONE of the following: [ ]a) Threatened airway [ ]b) Sudden altered mental status [ ]c) Repeated or prolonged seizures [ ]d) Coma [ ]e) New-onset anuria (urine output <0.1 mL/kg/hr over 4 h) [ ]f) Cyanosis (new) [ ]g) Cardiac tamponade [ ]h) Status post respiratory or cardiac arrest [ ]i) Severe jordan (eg, partial thickness jordan over more than 10% of body surface, third-degree jordan) [ ]j) Findings consistent with abdominal emergency (eg, peritoneal signs) [ ]V.Imaging findings, such as dissecting aneurysm or ruptured viscus [ ].Specific intervention or monitoring needed, as indicated by ANY ONE of the following: [ ]a) New need for assisted ventilation, invasive or noninvasive(11) [ ]b) New need for intubation (eg, to protect airway) [ ]c) New tracheostomy (less than 48 hours old) [ ]d) Hourly vital signs or neurologic checks [ ]e) Pulmonary artery line monitoring needed [ ]f) Continuous arterial line monitoring needed [ ]g) Continuous IV vasoactive drugs [ ]h) Continuous IV antiarrhythmics [ ]i) Large volume IV fluid resuscitation (eg, greater than 6 L per day ) [ ]j) Large or rapid transfusion needs (eg, more than 6 units within 24 hours) [ ]k) High-risk IV treatment, such as bolus IV medicatns or mannitol infusion [ ]l) Acute cardiac pacing [ ]m) Intra-aortic balloon pump [ ]n) Ventricular assist device [ ]o) Cardioversion [ ]p) Pericardiocentesis [ ]q) Hemodialysis in unstable patient [ ]r) Continuous renal replacement therapy (eg, continuous veno-venous hemofiltration) [ ]s) Peritoneal dialysis initiation [ ]t) Emergency bronchoscopic therapy (eg, for hemoptysis) [ ]u) Emergency endoscopic therapy for bleeding [ ]v) Balloon tamponade for variceal bleeding [ ]w) Intracranial pressure monitoring or tissue oxygen monitoring [ ]x) Ventriculostomy monitoring [ ]y) Treatment of ongoing seizures [ ]z) Induced hypothermia or coma [ ]aa) Ongoing frequent testing and treatment for acute conditions, including ANY ONE of the following: [ ]i) Correction of severe metabolic acidosis/ alkalosis [ ]ii). Severe fluid overload [ ]iii) Cerebral edema [ ]iv) Monitoring or suctioning for respiratory insufficiency or acidosis [ ]v) Monitoring for active bleeding [ ]bb) Rapid desensitization for high-risk hypersensitivity reaction to required medication (eg, penicillin)(12) [ ]cc) Other need for treatment or monitoring not available outside the ICU [ ]VII.Cardiology diagnoses or procedures, including ANY ONE of the following (13)(14)(15)(16)(17): [ ]a) Chest pain with ANY ONE of the following: [ ]i) Hemodynamic instability [ ]ii) Suspicion of diagnoses needing ICU care (eg, aortic dissection) [ ]iii) New unstable or symptomatic arrhythmia or ECG finding (eg, ventricular tachycardia, ventricular fibrillation, advanced heart block) [ ]iv) Syncope or near-syncope [ ]v) SBP less than 100 mm Hg [ ]vi) Pulmonary edema thought to be due to ischemia [ ]vii) New or worsening mitral regurgitation murmur, S3 , or rales [ ]b) Acute NV with complications as indicated by ANY ONE of the following: [ ]i) Persistent chest pain [ ]ii) Hemodynamic instability [ ]iii) New unstable or symptomatic arrhythmia or ECG finding (eg, ventricular tachycardia, ventricular fibrillation, advanced heart block) [ ]iv) Syncope or near-syncope [ ]v) Pulmonary edema thought to be due to ischemia [ ]vi) New or worsening mitral regurgitation murmur, S3 , or rales [ ]vii) New-onset bundle branch block [ ]viii) Hemorrhagic complication (eg, intracranial or access site bleed following thrombolysis) [ ]c) Cardiac arrhythmia or conduction defect with Hemodynamic instability [ ]d) Complication of cardiac ablation, including ANY ONE of the following(18): [ ]i) Pericardial tamponade [ ]ii) Hemodynamic instability [ ]iii) Thromboembolic stroke [ ]iv) Aortic valve injury [ ]v) Vascular injuries [ ]vi) Esophageal perforation [ ]vii) Severe arrhythmia [ ]viii) Air embolism [ ]ix) Other severe complication [ ]e) Cardiogenic shock [ ]f) Hypertensive emergency, with need for ANY ONE of the following(19): [ ]i) IV antihypertensive therapy [ ]ii) Invasive hemodynamic monitoring (eg, arterial line) [ ]g) Pericardial tamponade [ ]h) Severe heart failure, with ANY ONE of the following(15): [ ]i) Respiratory failure [ ]ii) Cardiogenic shock [ ]iii) Severe arrhythmias [ ]iv) Evidence of cardiac ischemia [ ]i Myocarditis, with ANY ONE of the following [ ]i) Hemodynamic instability [ ]ii) Respiratory failure [ ]iii) Severe arrhythmias [ ]iv) Need for cardiac assist device (eg, left ventricular assist device or extracorporeal membrane oxygenator) [ ]j) Status post cardiac arrest(20) [ ]VIII. Cardiovascular Surgery diagnoses or procedures, including ANY ONE of the following.(21)(22): [ ]a) Acute aortic dissection [ ]b) Aortic surgery for ANY ONE of the following: [ ]i) Thoracic aneurysm [ ]ii) Abdominal aneurysm with ANY ONE of the following(23): [ ]1) Emergency repair [ ]2) Severe cardiopulmonary disease [ ]3) Dialysis-dependent renal failure [ ]4) Need for IV blood pressure control [ ]5) Need for ongoing ventilatory support [ ]6) Perioperative complications, including ANY ONE of the following: [ ]A. Sustained Hemodynamic instability [ ]B. Cardiac ischemia or arrhythmia [ ]C. Hypothermia (less than 35 degrees C (95 degrees F)) [ ]D. Blood transfusion greater than 3 L [ ]iii) Aortic coarctation operative excision or repair [ ]iv) Aortofemoral or aortoiliac bypass with ANY ONE of the following: [ ]1) Continued intubation [ ]2) Hemodynamic instability [ ]3) Need for IV blood pressure control [ ]4) Severe cardiopulmonary disease [ ]c) Cardiac surgery [ ]d) Carotid endarterectomy or stent placement with ANY ONE of the following: [ ]i) Blood pressure <100/60 mm Hg or >160/90 mm Hg despite 4 h of postanesthetic management [ ]ii) New or progressive neurologic defect [ ]iii) Chest pain [ ]iv) Continued intubation [ ]v) Heart failure [ ]vi) Airway compromise by hematoma or vocal cord paralysis [ ]vi) Need for IV blood pressure control [ ]e) Heart transplant [ ]f) Infrainguinal peripheral vascular surgery with ANY ONE of the following: [ ]i) Hemodynamic instability [ ]ii) Acute complications such as persistent chest pain or respiratory distress [ ]iii) Requirement for IV antiarrhythmic or vasoactive agent [ ]iv) Requirement for pulmonary artery catheter [ ]v) Severe hypertension despite 6 hours of recovery room management [ ]g) Complications of any surgery requiring ICU intervention as indicated by ANY ONE of the following(24): [ ]i) Hemodynamic instability [ ]ii) Myocardial infarction with complications (eg, severe arrhythmia, hypotension) [ ]iii) Excessive bleeding or severe coagulopathy [ ]iv) Respiratory failure [ ]v) Renal failure [ ]vi) Airway instability or obstruction [ ]vii) Neurologic deterioration [ ]viii) Infection with likelihood of sepsis syndrome or significant fluid shifts [ ]IX.Endocrinology diagnoses or procedures, including ANY ONE of the following(25)(26): [ ]a) Adrenal crisis with Hemodynamic instability(27) [ ]b) Pheochromocytoma with ANY ONE of the following(28): [ ]i) Hypertensive crisis [ ]ii) Postoperative Hemodynamic instability [ ]iii) Need for IV vasoactive therapy [ ]iv) Need for invasive arterial or central venous pressure monitoring [ ]v) Organ ischemia [ ]c) Diabetic hyperosmolar state with obtundation or coma [ ]d) Diabetic ketoacidosis with ANY ONE of the following: [ ]i) Serum pH less than 7.10 or bicarbonate level less than 10 mEq/L (mmol/L) [ ]ii) Rapidly changing electrolytes [ ]iii) Hypotension [ ]iv) Requirement for large-volume fluid resuscitation [ ]v) Respiratory insufficiency [ ]vi) Life-threatening cardiac dysrhythmias [ ]vii) Obtundation [ ]viii) Severe precipitating condition such as sepsis, stroke, or acute NV [ ]e) Severe hypoglycemia requiring continuous glucose infusion with frequent adjustment or glucagon infusion [ ]f) Hyperthyroidism associated with thyroid storm (also known as thyrotoxic crisis)(29) [ ]g) Myxedema with life-threatening neurologic, cardiovascular, electrolyte, or renal dysfunction(29) [ ]h) Diabetes insipidus that cannot be controlled with routine medication (30) [ ]X. Gastroenterology diagnoses or procedures, including ANY ONE of the following: [ ]a) Esophageal perforation(31) [ ]b) Severe caustic esophageal injury(31) [ ]c) Liver disease complications with ANY ONE of the following(32): [ ]i) Severe hepatic encephalopathy (eg, stage 3 (somnolent) or higher) [ ]ii) Type 1 hepatorenal syndrome [ ]iii) Other cirrhosis-associated causes of acute renal failure ( eg, severe hypovolemia, acute tubular necrosis, abdominal compartment syndrome) [ ]iv) Hemodynamic instability [ ]v) Respiratory insufficiency due to severe ascites [ ]vi) Sepsis due to spontaneous bacterial peritonitis [ ]d) Fulminant hepatic failure when aggressive intervention or transplant is anticipated (32) [ ]e) Gastrointestinal hemorrhage (upper or lower) with ANY ONE of the following(33)(34): [ ]i) Active ongoing bleeding [ ]ii) Transfusion requirement greater than 2 units of packed red cells [ ]iii) Bleeding ulcer or nonbleeding visible vessel seen on endoscopy [ ]iv) Bleeding ulcer, visible blood vessel, bleeding (or recently bleeding) esophageal varices seen on endoscopy [ ]v) Hypotension [ ]vi) Syncope [ ]vii) Coagulopathy [ ]viii) Hepatic cirrhosis [ ]ix) Abnormal mental status [ ]x) Unstable comorbid condition or end organ dysfunction [ ]xi) Ischemia due to poor perfusion [ ]xii) Need for hemodynamic monitoring (eg, for patients with heart failure or valvular disease) [ ]f) Severe pancreatitis indicated by ANY ONE of the following (35)(36): [ ]i) Requirement for aggressive fluid resuscitation [ ]ii) Life-threatening electrolyte abnormality [ ]iii) SBP less than 90 mm Hg [ ]iv) Persistent tachycardia greater than 120 beats per minute [ ]v) Patients at high risk of rapid deterioration, including ANY ONE of the following: [ ]1) Calculated [place] II score greater than 8 [ ]2) Age older than 55 years [ ]3) BMI greater than 30 [ ]4) Greater than 30% pancreatic necrosis on CT scan [ ]5) Admission hematocrit greater than 47% (0.47) [ ]vi) Organ failure as indicated by ANY ONE of the following: [ ]1) Serum creatinine greater than 1.9 mg/dL (168 micromoles/L) [ ]2) Requirement for mechanical ventilation [ ]3) Urine output less than 50 mL/hour [ ]4) Arterial partial pressure of oxygen less than 60 mm Hg (8.0 kPa) despite supplemental oxygen [ ]5) PiO2/FiO2 ratio less than 300 [ ]vii) Expanding pseudocyst [ ]viii) Infected pancreas [ ]ix) Pleural effusion [ ]x) Encephalopathy [ ]xi) Severe comorbidities [ ]XI. General Surgery diagnoses or procedures, including ANY ONE of the following (9)(24)(37): [ ]a) Acute abdominal catastrophe (eg, ischemic bowel, perforated viscus, abdominal compartment syndrome) [ ]b) Complications of any surgery requiring ICU intervention as indicated by ANY ONE of the following: [ ]i) Hemodynamic instability [ ]ii) NV with complications (eg, severe arrhythmia, hypotension) [ ]iii) Excessive bleeding or severe coagulopathy [ ]iv) Respiratory failure [ ]v) Renal failure [ ]vi) Airway instability or obstruction [ ]vii) Neurologic deterioration [ ]viii) Infection with likelihood of sepsis syndrome or significant fluid shifts [ ]c) Multiple trauma with complicating features as indicated by ANY ONE of the following(38): [ ]i) Impending acute respiratory failure due to lung contusion, unstable chest wall, aspiration, or hemorrhage [ ]ii) Facial or neck injury threatening airway patency [ ]iii) Cardiac contusion [ ]iv) Pericardial effusion [ ]v) Bronchial tear [ ]vi) Hemodynamic instability [ ]vii) Rhabdomyolisis requiring large volume IV fluid resuscitation [ ]viii)Other significant complicating feature [ ]d) Organ transplant(39)(40) [ ]e) Esophagectomy(31) [ ]f) Whipple procedure [ ]g) Preoperative or postoperative patients requiring ICU intervention, such as hemodynamic optimization, pulmonary artery monitoring, mechanical ventilation, or extensive nursing care [ ]h) Obesity surgery patients with ANY ONE of the following(41): [ ]i) ICU management needs for comorbid conditions, such as sleep apnea or airway management needs [ ]ii) Failed postoperative extubation [ ]iii) Intraoperative complications [ ]XII. Nephrology diagnoses or procedures, including acute, or acute on chronic renal insufficiency with ANY ONE of the following(44)(45): [ ]a) Life-threatening electrolyte or acid-base disorder [ ]b) Acute pulmonary edema [ ]c) Hypotension or significant volume depletion [ ]d) Hypertensive emergency [ ]e) Underlying critical illness contributing to renal failure (eg, septic shock, hepatorenal syndrome) [ ]f) Need for continuous renal replacement therapy [ ]XIII. Neurology diagnoses or procedures, including ANY ONE of the following (46)(47) [B] : [ ]a) Intracranial hypertension requiring ANY ONE of the following(49 ): [ ]i) Induced barbiturate coma [ ]ii) Pharmacologic paralysis or deep sedation and mechanical ventilation [ ]iii) Intracranial pressure or cerebral perfusion pressure monitoring [ ]iv) IV mannitol or hypertonic saline [ ]v) Frequent serum osmolality measurements [ ]b) Seizures with ANY ONE of the following(50): [ ]i) Status epilepticus [ ]ii) Airway compromise requiring or likely to require mechanical ventilation [ ]iii) Severe electrolyte abnormalities causing seizures [ ]c) Progressive acute neurologic dysfunction requiring or likely to require ANY ONE of the following: [ ]i) Mechanical ventilation [ ]ii) Intracranial pressure or cerebral perfusion pressure monitoring [ ]d) Meningitis with obtundation or respiratory insufficiency [C])(51 ) [ ]e) Stroke with ANY ONE of the following(52)(53): [ ]i) Need for observation after thrombolysis [ ]ii) Altered mental status [ ]iii) Need for mechanical ventilation [ ]iv) Elevated intracranial pressure [ ]v) Hypertensive emergency [ ]vi) High risk of progressive infarction or deterioration based on CT scan or MRI [ ]vii) Hemorrhage [ ]f) Acute coma [ ]g) Acute spontaneous intracranial hemorrhage(53)(54) [ ]h) Drug ingestion with ANY ONE of the following(56)(57): [ ]i) Hemodynamic instability [ ]ii) Respiratory depression (partial pressure of carbon dioxide >45 mm Hg (6.0 kPa), new) [ ]iii) Patient requires or is likely to require mechanical ventilation. [ ]iv) Arrhythmias [ ]v) Seizures [ ]vi) Altered mental status ([place] coma scale score less than 12, new) [ ]vii) Significant risk for acute deterioration (eg, toxic level of hypotension or arrhythmia-producing drug) [ ]viii) Drug-induced hypothermia or hyperthermia [ ]ix) Increasing metabolic acidosis [ ]x) Severe hypoglycemia requiring glucose infusion with frequent adjustment or glucagon administration [ ]xi) Ongoing antidote administration (eg, continuous naloxone infusion, organophosphate toxicity treatment) [ ]xii) Emergency intervention need (eg, dialysis, hemoperfusion, restraints) [ ]i) Brain with preparation for organ donation [ ]j) Traumatic brain injury with ANY ONE of the following(55): [ ]i) Altered mental status (eg, new onset Adebayo coma scale score less than 10) [ ]ii) Cerebral edema [ ]iii) Cerebral hemorrhage [ ]iv) Increased intracranial pressure [ ]XIV. Neurosurgery diagnoses or procedures, including ANY ONE of the following(49)(58)(59): [ ]a) Emergency craniotomy for tumor, hematoma, or trauma [ ]b) Elective craniotomy for posterior fossa tumor [ ]c) Elective craniotomy (supratentorial) for tumor with ANY ONE of the following: [ ]i) Postoperative neurologic deficit or impaired consciousness 6 hours after completion of procedure [ ]ii) SBP less than 110 mm Hg or greater than 180 mm Hg despite therapy [ ]iii) Extensive operative blood loss [ ]iv) High anesthesia risk (eg, [place] [employer] score greater than 3 [ ]d) Craniotomy for aneurysm with ANY ONE of the following: [ ]i) Postoperative neurologic deficit or impaired consciousness 6 hours after completion of procedure [ ]ii) Preoperative William-Jasso grade 3 or higher [ ]iii) SBP less than 110 mm Hg or greater than 180 mm Hg despite therapy [ ]iv) Intracranial pressure monitoring [ ]e) Acute spinal cord injury [ ]f) Subarachnoid hemorrhage [ ]g) Traumatic brain injury with ANY ONE of the following: [ ]i) Acute mental status change (Adebayo coma scale score less than 10) [ ]ii) CT scan showing cerebral edema or hemorrhage [ ]iii) Intracranial pressure monitoring [ ]h) Complications of any surgery requiring ICU intervention as indicated by ANY ONE of the following(60): [ ]i) Hemodynamic instability [ ]ii) NV with complications (eg, severe arrhythmia, hypotension) [ ]iii) Excessive bleeding or severe coagulopathy [ ]iv) Respiratory failure [ ] v) Renal failure [ ]vi) Airway instability or obstruction [ ]vii) Neurologic deterioration [ ]viii) Infection with likelihood of sepsis syndrome or significant fluid shifts [ ]i) Preoperative or postoperative patients requiring ICU intervention, such as hemodynamic optimization, pulmonary artery monitoring, mechanical ventilation, or extensive nursing care [ ]XV.Obstetrics and Gynecology diagnoses or procedures, including ANY ONE of the ffg. (61)(62)(63): [ ]a) Severe peripartum condition as indicated by ANY ONE of the following: [ ]i) Eclampsia [ ]ii) Hypertensive emergency [ ]iii) HELLP syndrome (hemolysis, elevated liver enzymes, and low platelet count) [ ]iv) Pulmonary edema [ ]v) Respiratory failure [ ]vi) Pulmonary embolism [ ]vii) Anaphylactoid syndrome of (amniotic fluid embolus) [ ]viii) Ovarian hyperstimulation syndrome [D] [ ]ix) Acute fatty liver of (hepatic failure) [ ]x) Complications such as placental abruption or severe hemorrhage [ ]xi) Sepsis (eg, puerperal sepsis, chorioamnionitis, septic ) [ ]xii) cardiomyopathy with severe congestive heart failure (eg, respiratory failure, cardiogenic shock) [ ]b) Ruptured ectopic [ ]c) Complications of any surgery requiring ICU intervention as indicated by ANY ONE of the following: [ ]i) Hemodynamic instability [ ]ii) NV with complications (eg, severe arrhythmia, hypotension) [ ]iii) Excessive bleeding or severe coagulopathy [ ]iv) Respiratory failure [ ]v) Renal failure [ ]vi) Airway instability or obstruction [ ]vii) Neurologic deterioration [ ]viii) Infection with likelihood of sepsis syndrome or significant fluid shifts [ ]d) Preoperative or postoperative patients requiring ICU intervention , such as hemodynamic optimization, pulmonary artery monitoring, mechanical ventilation, or extensive nursing care [ ]XVI.Ophthalmology diagnoses or procedures, including ANY ONE of the following (64): [ ]a) Complications of any surgery requiring ICU intervention, such as ANY ONE of the following: [ ]i) Hemodynamic instability [ ]ii) NV with complications (eg, severe arrhythmia, hypotension) [ ]iii) Excessive bleeding or severe coagulopathy [ ]iv) Respiratory failure [ ]v) Renal failure [ ]vi) Airway instability or obstruction [ ]vii) Neurologic deterioration [ ]viii) Infection with likelihood of sepsis syndrome or significant fluid shifts [ ]b) Preoperative or postoperative patients requiring ICU intervention , such as hemodynamic optimization, pulmonary artery monitoring, mechanical ventilation, or extensive nursing care [ ]XVII.Orthopedics diagnoses or procedures, including ANY ONE of the following [phone]): [ ]a) Complications of any surgery requiring ICU intervention as indicated by ANY ONE of the following: [ ]i) Hemodynamic instability [ ]ii) NV with complications (eg, severe arrhythmia, hypotension) [ ]iii) Excessive bleeding or severe coagulopathy [ ]iv) Respiratory failure [ ]v) Renal failure [ ]vi) Airway instability or obstruction [ ] vii) Neurologic deterioration [ ]viii) Infection with likelihood of sepsis syndrome or significant fluid shifts [ ]b) Multiple trauma with complicating features as indicated by ANY ONE of the following(38): [ ]i) Impending acute respiratory failure due to lung contusion, unstable chest wall, pneumothorax, aspiration, or hemorrhage [ ]ii) Facial or neck injury threatening airway patency [ ]iii) Cardiac contusion [ ]iv) Rhabdomyolysis requiring large volume IV fluid resuscitation [ ]v) Pericardial effusion [ ]vi) Bronchial tear [ ]vii) Hemodynamic instability [ ]viii) Other significant complicating feature [ ]c) Threatened compartment syndrome [ ]d) Severe jordan with ANY ONE of the following(68)(69)(70): [ ]i) Hypotension or requirement for aggressive fluid resuscitation [ ]ii) Respiratory insufficiency with requirement for high- flow oxygen or mechanical ventilation [ ]iii) Carbon monoxide poisoning [ ]iv) Life-threatening cardiac, renal, pulmonary, or neurologic dysfunction [ ]v) High-voltage (eg, 1000 volts or more) electrical burn [ ]vi) Requirement for frequent or intensive debridement and dressing changes; examples include: [ ]1) Partial thickness jordan greater than 10% of body surface [ ]2) Jordan on face, hands, feet, genitalia, perineum , or major joints [ ]3) Third-degree jordan [ ]4) Any burn greater than 15% of body surface area [ ]vii) Inhalation lung injury [ ]viii) Concomitant trauma or other medical condition requiring ICU care [ ]e) Preoperative or postoperative patients requiring ICU intervention , such as hemodynamic optimization, pulmonary artery monitoring, mechanical ventilation, or extensive nursing care [ ]XVIII.Otolaryngology diagnoses or procedures, including ANY ONE of the following (71)(72): [ ]a) Complications of any surgery requiring ICU intervention as indicated by ANY ONE of the following: [ ]i) Hemodynamic instability [ ]ii) NV with complications (eg, severe arrhythmia, hypotension) [ ]iii) Excessive bleeding or severe coagulopathy [ ]iv) Respiratory failure [ ]v) Renal failure [ ]vi) Airway instability or obstruction [ ]vii) Neurologic deterioration [ ]viii) Infection with likelihood of sepsis syndrome or significant fluid shifts [ ]b) Airway or hemodynamic compromise that persists after 3 hours of observation in postanesthesia care unit following nasal, palate (eg, uvulopalatopharyngoplasty or palatoplasty), or tongue surgery for sleep apnea [ ]c) Preoperative or postoperative patient requiring ICU intervention, such as hemodynamic optimization, pulmonary artery monitoring, mechanical ventilation, or extensive nursing care [ ]d) Symptomatic upper airway compromise (eg, laryngeal edema, mass) [ ]e) Other airway-compromising procedure (eg, posterior nasal packing) [ ]XIX.Thoracic Surgery and Pulmonary Disease Diagnosis or procedures, including ANY ONE of the following(6): [ ]a) Asthma with ANY ONE of the following(73)(74): [ ]i) Impending or actual respiratory arrest [ ]ii) Need for mechanical ventilation [ ]iii) Peak expiratory flow rate less than 30% of predicted or personal best [ ]iv) Peak expiratory flow rate or FEV1 less than 40% predicted after 1 hour of initial treatment [ ]v) Acidosis [ ]vi) Persistent or worsening hypoxia after initial treatment [ ]vii) Hypercapnia (eg, partial pressure of carbon dioxide greater than 43 mm Hg (5.7 kPa)) [ ]viii) Severe drowsiness, confusion, or coma [ ]ix) Requiring continuous inhaled bronchodilator [ ]b) COPD with ANY ONE of the following(75): [ ]i) Need for assisted ventilation [ ]ii) Hemodynamic instability [ ]iii) Severe dyspnea unresponsive to initial treatment [ ]iv) Change in level of consciousness [ ]v) Persistent findings despite oxygen and outpatient management, including ANY ONE of the following: [ ]1) Partial pressure of oxygen less than 40 mm Hg ( 5.3 kPa) [ ]2) Partial pressure of carbon dioxide greater than 60 mm Hg (8.0 kPa) [ ]3) pH less than 7.25 [ ]4) Worsening hypoxemia or acidosis [ ]c) Cor pulmonale with ANY ONE of the following(75)(76)(77): [ ]i) Hemodynamic instability [ ]ii) Need for IV inotropic or vasoactive agent [ ]iii) Need for invasive hemodynamic monitoring (eg, central venous, pulmonary artery, or arterial catheter) [ ]iv) Hypoxemia with partial pressure of oxygen less than 40 mm Hg (5.3 kPa) [ ]v) Worsening hypoxemia or acidosis despite oxygen therapy [ ]vi) Need for assisted ventilation [ ]vii) Need for right ventricular assist device [ ]viii) Unstable atrial tachyarrhythmia [ ]ix) Need for inhaled nitric oxide [ ]d) Aspiration pneumonia with ANY ONE of the following(78): [ ]i) Acute respiratory distress syndrome (PaO2/FiO2 ratio of 300 or less) [ ]ii) Impending or actual respiratory arrest [ ]iii) Need for invasive or noninvasive mechanical ventilation [ ]e) Pneumocystis jiroveci pneumonia with ANY ONE of the following(79): [ ]i) Impending or actual respiratory arrest [ ]ii) Hypoxia (eg, PO260 mmGh (8.0 kPa) or less despite oxygen therapy) [ ]iii) Need for invasive or noninvasive mechanical ventilation [ ]f) Pneumonia with ANY ONE of the following(80)(81)(82): [ ]i) Need for invasive or noninvasive assisted ventilation [ ]ii) Hemodynamic instability [ ]iii) Severity factors as indicated by 3 or MORE of the following: [ ]1) Respiratory rate 30 breaths per minute or greater [ ]2) PaO2/FiO2 ratio of 250 or less [ ]3) Multilobed infiltrates [ ]4) Altered mental status [ ]5) BUN 20 mg/dL (7.1 mmol/L) or greater [ ]6) WBC count less than 4000/mm3 (4 x109/L) [ ]7) Platelet count <100,000/mm3 (100 x109/L) [ ]8) Temperature less than 36 degrees C (96.8 degrees F ) [ ]9) Hypotension requiring aggressive fluid resuscitation [ ]g) Pulmonary hypertension requiring initiation of parenteral pulmonary vasodilator or trial of inhaled nitric oxide (eg, need for right heart catheterization)(76) [ ]h) Impending respiratory failure as indicated by ANY ONE of the following: [ ]i) Respiratory rate greater than 30 or partial pressure of oxygen less than 60 mm Hg (8.0 kPa) on 50% oxygen or more [ ]ii) Partial pressure of carbon dioxide greater than 45 mm Hg (6.0 kPa) with pH less than 7.35 [ ]i) Respiratory failure with ANY ONE of the following (47): [ ]i) Need for invasive or noninvasive mechanical ventilation [ ]ii) High likelihood of requiring mechanical ventilation within 24 hours [ ]iii) Observation in the first several hours immediately after extubation from mechanical ventilation [ ]iv) Need for close observation and aggressive therapy, such as suctioning, chest physiotherapy, or inhalation treatments at intervals less than 1 hour [ ]v) Pharmacologic ventilatory paralysis [ ]j) Venous thromboembolism with need for systemic or catheter- directed thrombolysis (eg, for limb-threatening thrombosis, phlegmasia cerulea dolens) (83) [ ]k) Pulmonary embolus with ANY ONE of the following(83): [ ]i) Hypotension [ ]ii) Severe hypoxia [ ]iii) Dangerous arrhythmia [ ]iv) Bleeding [ ]v) Need for systemic or catheter-directed thrombolysis [ ]l) Lobectomy or other major thoracic surgery [ ]m) Lung transplant [ ]n) Symptomatic upper airway obstruction (eg, laryngeal edema, mass) [ ]o) Massive hemoptysis [ ]p) Infection or thrombosis of an intravenous device with ANY ONE of the following(6)(84): [ ]i) Hemodynamic instability [ ]ii) Requirement for frequent hemodynamic measurements [ ]iii) Shock [ ]iv) End organ dysfunction [ ] v) Acute renal failure due to missed dialysis [ ]vi) Unstable acute complication (eg, pericardial tamponade , tension pneumothorax) [ ]q) Traumatic rib fracture or fractures with ANY ONE of the following(85): [ ]i) Injury severity score of 19 or greater [ ]ii) Respiratory insufficiency [ ]iii) Flail chest [ ]iv) Sternum fracture [ ]v) Vascular injury (eg, heart or great vessels) [ ]r) Pleural effusion with ANY ONE of the following(86): [ ]i) Respiratory insufficiency [ ]ii) Hemothorax with active ongoing bleeding [ ]iii) Hemodynamic instability [ ]iv) Unstable comorbid condition (eg, sepsis or heart failure [ ]XX. Urology diagnoses or procedures, including ANY ONE of the following ( 87)(88): [ ]a) Renal transplant [ ]b) Complications of any surgery requiring ICU intervention as indicated by ANY ONE of the following: [ ]i) Hemodynamic instability [ ]ii) NV with complications (eg, severe arrhythmia, hypotension) [ ]iii) Excessive bleeding or severe coagulopathy [ ]iv) Respiratory failure [ ]v) Renal failure [ ]vi) Airway instability or obstruction [ ]vii) Neurologic deterioration [ ]viii) Infection with likelihood of sepsis syndrome or significant fluid shifts [ ]c) Preoperative or postoperative patients requiring ICU intervention , such as hemodynamic optimization, pulmonary artery monitoring, mechanical ventilation , or extensive nursing care [ ]XXI.Infectious Disease diagnoses or procedures, with ANY ONE of the following (6)(43): [ ]a) Hemodynamic instability [ ]b) Shock [ ]c) Requirement for frequent hemodynamic measurements (eg, arterial catheter, pulmonary artery catheter) [ ]d) Sepsis or suspected sepsis with end organ dysfunction (eg, acute kidney injury, acute respiratory distress syndrome) [ ]e) Necrotizing soft tissue infection [ ] XXII.Hematology - Oncology diagnoses or procedures, including chemotherapy administration with ANY ONE of the following(42): [ ]a) Hemodynamic instability [ ]b) Tumor lysis syndrome with ANY ONE of the following : [ ]1) Acute kidney injury [ ]2) Severe electrolyte abnormality [ ]3) Cardiac dysrhythmia [ ]XXIII. Systemic conditions, including ANY ONE of the following: [ ]a) Severe electrolyte or metabolic disturbance causing or likely to cause ANY ONE of the following(10)(89)(90): [ ]i) Life-threatening cardiac dysrhythmia [ ]ii) Respiratory insufficiency [ ]iii) Altered mental status [ ]iv) Seizures [ ]v) Hemodynamic instability [ ]vi) Muscular weakness [ ]b) Environmental injuries such as hypothermia, hyperthermia, electrical injuries, or near drowning(70)(91)(92) The original [facility] content created by [employer] has been revised. The portions of the content which have been revised are identified through the use of italic text or in bold, and [employer] [employer] has neither reviewed nor approved the modified material. All other unmodified content is copyright [employer] [facility]. Please see references footnoted in the original [facility] [employer] edition 2016 Admission Criteria Met?: Yes JAS SORIA Oct 30, 2016 17:17
[2016-10-30 20:00] VITALS: BP 108/37
[2016-10-30] MEDS ORDERED: DARBEPOETIN ALFA 60 MCG/0.3 ML DISP.SYRIN. SQ SCH (21:00)
[2016-10-30] MEDS: HEPARIN PF for SUB-Q USE 5,000 UNIT/0.5 ML VIAL. SQ SCH (22:58)
[2016-10-30] MEDS: BICALUTAMIDE 50 MG TABLET PO SCH (22:58)
[2016-10-30] MEDS: FAMOTIDINE 20 MG TABLET. PO SCH (22:59)
[2016-10-30] MEDS: TAMSULOSIN 0.4 MG CAP.ER.24H. PO SCH (23:00)
[2016-10-31] VITALS: BP 114/59
[2016-10-31 04:00] VITALS: BP 108/37
[2016-10-31] MEDS: PIPERACILLIN/TAZOBACTAM 2.25 GM in IV NORMAL SALINE 50ML 50 ML IV SCH ×3 (06:00→20:36)
[2016-10-31] MEDS ORDERED: IV NORMAL SALINE 1000ML BAG 1,000 ML IV PRN (06:51)
[2016-10-31] MEDS ORDERED: DIALYSIS PATIENT. MC PRN ×2 (07:00)
[2016-10-31 07:04] LABS: HEMATOCRIT 23.8 % (39.0-53.0); HEMOGLOBIN 7.7 g/dL (13.0-17.5); RED BLOOD COUNT 2.41 x10^6/uL (4.30-5.70); WHITE BLOOD COUNT 5.7 x10^3/uL (4.0-11.0)
[2016-10-31 07:07] LABS: CALCIUM 8.9 mg/dL (8.5-10.1); CREATININE 4.3 mg/dL (0.7-1.3); GFR 13.2; POTASSIUM 4.5 mmol/L (3.5-5.1)
[2016-10-31 08:00] VITALS: BP 100/49
--- NOTE | 2016-10-31 08:16 | CONS ---
DATE OF CONSULTATION: 10/30/2016 ATTENDING PHYSICIAN: Dr. Dalila Perez. REASON FOR CONSULTATION: The patient is seen in pulmonary consultation at the request of Dr. Perez for acute respiratory failure. HISTORY OF PRESENT ILLNESS: The patient is an 86-year-old with a history of CHF and end-stage renal disease, on hemodialysis, who presented from [facility] with reports of dizziness. Apparently, he had some lightheadedness today. He was also short of breath. Normally, he does not utilize oxygen. He became hypoxic with saturations in the 80s. He was seen in the Emergency Department and was placed on oxygen supplementation. He underwent a CT angiogram. I reviewed the CT, which revealed no evidence of pulmonary emboli. There are some ground-glass opacities along with small bilateral effusion. There is consolidation of the lower lobes and large pericardial effusion. The patient has a cough, mostly nonproductive. He denies shaking chills, no fever or productive cough. 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 He has received some chemotherapy in the past. PAST SURGICAL HISTORY: Right dialysis catheter fistula, hernia repair. SOCIAL HISTORY: He smoked as a teenager for a couple of years. No history of alcoholism. REVIEW OF SYSTEMS: CONSTITUTIONAL: No fever or chills. EYES: No changes in visual acuity. HEENT: No nasal congestion or sore throat. RESPIRATORY: As indicated above. CARDIOVASCULAR: Some lower chest pain at the bottom of the left rib area. GASTROINTESTINAL: No nausea, vomiting, diarrhea. GENITOURINARY: No dysuria. Some frequency. MUSCULOSKELETAL: No localized muscle aches or joint pains. SKIN: No new skin rashes. NEUROLOGIC: No headaches, diplopia or blurred vision. CURRENT MEDICATIONS: List was reviewed. ALLERGIES: No known drug allergies. PHYSICAL EXAMINATION: GENERAL: The patient was in the intensive care unit, requiring oxygen supplementation at 40%, by Venturi mask. VITAL SIGNS: Otherwise, currently stable. HEENT: Eyes: His sclerae were nonicteric. NECK: Jugular venous distention was not elevated. No lymphadenopathy. CHEST: Full expansion. LUNGS: Crackles in the bases, otherwise no wheezes. CARDIOVASCULAR: Regular rate and rhythm with S1, S2, no S3. ABDOMEN: Soft, nontender, nondistended. EXTREMITIES: No clubbing, cyanosis or edema. NEUROLOGIC: The patient was awake, alert, following commands. A detailed neuro exam was not performed. DIAGNOSTIC DATA: A CT chest as indicated above. LABORATORY DATA: White count was normal. Hemoglobin and hematocrit were low at 8.6 and 26. INR was 1.2. Electrolytes were noted. BNP was elevated. Albumin was low. IMPRESSION: 1. Acute respiratory failure, multifactorial. 2. Acute diastolic heart failure. 3. Possible pneumonia. 4. Large pericardial effusion. 5. End-stage renal disease. 6. 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 7. Chronic anemia. 8. Sick sinus syndrome, status post PPM with atrial ____. PLAN: 1. The patient is to undergo dialysis today, recommend negative fluid balance. 2. Consult cardiology, already performed. 3. Initiate broad-spectrum antibiotics. 4. DVT and GI prophylaxis. 5. Titrate oxygen down to maintain sats above 92%. The above was discussed with the at the bedside. Total cumulative critical care time of 35 minutes. JESSE MILIAN MD DR: MANISH/pushpa JOB#: [id number] / [id number]
[2016-10-31] MEDS: LEVOTHYROXINE 75 MCG TABLET PO SCH (08:49)
[2016-10-31] MEDS: ACETAMINOPHEN 325 MG TABLET. PO PRN ×2 (08:49→17:40)
[2016-10-31] MEDS ORDERED: SAW PALMETTO FRUIT 900 MG PO SCH (09:00)
[2016-10-31] MEDS ORDERED: FUROSEMIDE 20 MG TABLET PO SCH (09:00)
[2016-10-31] MEDS: AMLODIPINE BESYLATE 5 MG TABLET PO SCH (09:00)
[2016-10-31] MEDS: ASCORBIC ACID 500 MG TABLET PO SCH (10:29)
[2016-10-31] MEDS: FINASTERIDE 5 MG TABLET PO SCH (10:29)
[2016-10-31] MEDS: HEPARIN PF for SUB-Q USE 5,000 UNIT/0.5 ML VIAL. SQ SCH ×2 (10:30→20:36)
--- NOTE | 2016-10-31 10:30 | PDOC ---
Renal-Progress Notes Subjective Notes Notes NONE History of Present Illness Hx of present illness NO CHANGE Vitals Vitals Vital Signs Date Time Temp Pulse Resp B/P Pulse Ox O2 Delivery O2 Flow Rate FiO2 10/31/16 08:00 Nasal Cannula 4.0 10/31/16 08:00 97.9 60 100/49 98 97.9 10/31/16 00:00 27 Weight Weight [ ] I.O. Intake and Output Intake and Output 10/31/16 07:00 Intake Total 400 ml Output Total 200 ml Balance 200 ml Intake Oral 400 ml Output Urine Total 200 ml # Voids 2 Labs Labs Laboratory Tests Test 10/31/16 06:30 White Blood Count 5.7x10^3/uL (4.0-11.0) Red Blood Count 2.41x10^6/uL (4.30-5.70) Hemoglobin 7.7g/dL (13.0-17.5) Hematocrit 23.8% (39.0-53.0) Mean Corpuscular Volume 99fL (79-100) Mean Corpuscular Hemoglobin 32pg (25-35) Mean Corpuscular Hemoglobin Concent 33g/dL (31-37) Red Cell Distribution Width 14.0% (11.5-14.5) Platelet Count 177x10^3/uL (140-400) Sodium Level 143mmol/L (136-145) Potassium Level 4.5mmol/L (3.5-5.1) Chloride Level 105mmol/L (98-107) Carbon Dioxide Level 28mmol/L (21-32) Anion Gap 10 (6-14) Blood Urea Nitrogen 38mg/dL (8-26) Creatinine 4.3mg/dL (0.7-1.3) Estimated GFR (Cockcroft-Gault) 13.2 Glucose Level 99mg/dL (70-99) Calcium Level 8.9mg/dL (8.5-10.1) Review of Systems Constitutional: yes: alert, oriented, weakness Ears/Nose/Throat: Yes: no symptom reported Pulmonary: Yes dyspnea Cardiovascular: Yes no symptom reported Gastrointestional: Yes: no symptom reported Musculoskeletal: Yes: muscle stiffness Physical Exam General Appearance: no apparent distress Skin: warm Respiratory: decreased breath sounds Heart: S1S2 Abdomen: soft, bowel sounds present Neurology: alert Musculoskeletal: low back pain, Osteoarthritis, Other Assessment Assessment IMP CHF ANEMIA ESRD PLAN HD TODAY UF TO DW WILL DECREASE DW INCREASE ACTIVITY JEWEL GALAVIZ MD Oct 31, 2016 10:30
--- NOTE | 2016-10-31 11:16 | PDOC ---
HERNAN COHN CHROME POLISHER 10/31/16 1116: CARDIO Progress Notes Date and Time Date of Service 10/31/2016 Time of Evaluation 1030 Subjective Subjective: No Chest Pain, No shortness of breath, No Palpitations, No Dizziness, Other (appetite better, rehab starting) Vitals Vitals Vital Signs Date Time Temp Pulse Resp B/P Pulse Ox O2 Delivery O2 Flow Rate FiO2 10/31/16 09:00 60 100/49 10/31/16 08:00 Nasal Cannula 4.0 10/31/16 08:00 97.9 98 97.9 10/31/16 00:00 27 Weight Weight [ ] Input and Output Intake and Output Intake and Output 10/31/16 07:00 Intake Total 400 ml Output Total 200 ml Balance 200 ml Intake Oral 400 ml Output Urine Total 200 ml # Voids 2 Laboratory Labs Laboratory Tests Test 10/31/16 06:30 White Blood Count 5.7x10^3/uL (4.0-11.0) Red Blood Count 2.41x10^6/uL (4.30-5.70) Hemoglobin 7.7g/dL (13.0-17.5) Hematocrit 23.8% (39.0-53.0) Mean Corpuscular Volume 99fL (79-100) Mean Corpuscular Hemoglobin 32pg (25-35) Mean Corpuscular Hemoglobin Concent 33g/dL (31-37) Red Cell Distribution Width 14.0% (11.5-14.5) Platelet Count 177x10^3/uL (140-400) Sodium Level 143mmol/L (136-145) Potassium Level 4.5mmol/L (3.5-5.1) Chloride Level 105mmol/L (98-107) Carbon Dioxide Level 28mmol/L (21-32) Anion Gap 10 (6-14) Blood Urea Nitrogen 38mg/dL (8-26) Creatinine 4.3mg/dL (0.7-1.3) Estimated GFR (Cockcroft-Gault) 13.2 Glucose Level 99mg/dL (70-99) Calcium Level 8.9mg/dL (8.5-10.1) Review of Systems Constitutional: yes: alert, oriented, weakness Ears/Nose/Throat: Yes: no symptom reported Pulmonary: Yes dyspnea Cardiovascular: Yes no symptom reported Gastrointestional: Yes: no symptom reported Musculoskeletal: Yes: muscle stiffness Physical Exam HEENT: Neck Supple W Full Motion Chest: Symmetric LUNGS: Other (bibasilar crackles) Heart: S1S2, RRR (atrial paced; no significant ectopies), murmurs (3/6 systolic murmur to LLS border) Abdomen: Soft N/T Extremities: No Edema, No Calf Tenderness Neurology: alert, oriented, follow commands Assessment Assessment 1. Pericardial effusion: small to moderate via TTE. Hemodynamically stable. 2. Acute on chronic diastolic CHF: much improved post HD 3. Hypoxia: much improved. Off ventimask, now on NC. 3. SSS with PPM: 10/17/2016 replacement of lead/Gen [employer]. Interrogation revealed normal functioning device no arrhythmias 4. Anemia of chronic disease: Hgb 7.7 7. HTN: controlled 8. 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 ESRD: HD schedule MWF Recommendations 1. No records yet. 2. Continue with current regimen 3. Fluid off loading per HD schedule. 4. Rehab to start 5. No further recommendation, follow up with Dr. Pleitez as scheduled. MAURICE MISHRA MD 11/01/16 0534: CARDIO Progress Notes Assessment Assessment Patient seen and examined 10/31/16. Agree with CUSTOMER SERVICE SPECIALIST's assessment and plan. Acute on chronic diast HF better compensated with fluid removal with HD. Pericardial effusion hemodynamically stable. Follow up with Dr. Pleitez after discharge. HERNAN COHN APRN Oct 31, 2016 11:16 MAURICE MISHRA MD Nov 01, 2016 05:34
[2016-10-31 12:00] VITALS: BP 92/73
--- NOTE | 2016-10-31 12:55 | PDOC ---
PULMONARY PROGRESS NOTES Subjective PT OFF BIPAP NOT MORE SOA Vitals Vital Signs Date Time Temp Pulse Resp B/P Pulse Ox O2 Delivery O2 Flow Rate FiO2 10/31/16 12:00 98.1 59 92/73 94 Nasal Cannula 2.0 98.1 10/31/16 00:00 27 ROS: No Nausea, No Chest Pain, No Abdominal Pain, No Increase Cough General: Alert Lungs: Crackles Cardiovascular: S1, S2 Abdomen: Soft, Non-tender Neuro Exam: Alert Extremities: No Edema Skin: Warm Labs Laboratory Tests Test 10/30/16 01:06 10/31/16 06:30 White Blood Count 7.6x10^3/uL (4.0-11.0) 5.7x10^3/uL (4.0-11.0) Red Blood Count 2.69x10^6/uL (4.30-5.70) 2.41x10^6/uL (4.30-5.70) Hemoglobin 8.6g/dL (13.0-17.5) 7.7g/dL (13.0-17.5) Hematocrit 26.5% (39.0-53.0) 23.8% (39.0-53.0) Mean Corpuscular Volume 99fL (79-100) 99fL (79-100) Mean Corpuscular Hemoglobin 32pg (25-35) 32pg (25-35) Mean Corpuscular Hemoglobin Concent 33g/dL (31-37) 33g/dL (31-37) Red Cell Distribution Width 13.9% (11.5-14.5) 14.0% (11.5-14.5) Platelet Count 199x10^3/uL (140-400) 177x10^3/uL (140-400) Neutrophils (%) (Auto) 78% (31-73) Lymphocytes (%) (Auto) 8% (24-48) Monocytes (%) (Auto) 12% (0-9) Eosinophils (%) (Auto) 1% (0-3) Basophils (%) (Auto) 0% (0-3) Neutrophils # (Auto) 5.9x10^3uL (1.8-7.7) Lymphocytes # (Auto) 0.6x10^3/uL (1.0-4.8) Monocytes # (Auto) 0.9x10^3/uL (0.0-1.1) Eosinophils # (Auto) 0.1x10^3/uL (0.0-0.7) Basophils # (Auto) 0.0x10^3/uL (0.0-0.2) Prothrombin Time 14.8SEC (11.7-14.0) Prothromb Time International Ratio 1.2 (0.8-1.1) Activated Partial Thromboplast Time 29SEC (24-38) Sodium Level 145mmol/L (136-145) 143mmol/L (136-145) Potassium Level 4.9mmol/L (3.5-5.1) 4.5mmol/L (3.5-5.1) Chloride Level 105mmol/L (98-107) 105mmol/L (98-107) Carbon Dioxide Level 31mmol/L (21-32) 28mmol/L (21-32) Anion Gap 9 (6-14) 10 (6-14) Blood Urea Nitrogen 43mg/dL (8-26) 38mg/dL (8-26) Creatinine 4.3mg/dL (0.7-1.3) 4.3mg/dL (0.7-1.3) Estimated GFR (Cockcroft-Gault) 13.2 13.2 BUN/Creatinine Ratio 10 (6-20) Glucose Level 109mg/dL (70-99) 99mg/dL (70-99) Calcium Level 9.0mg/dL (8.5-10.1) 8.9mg/dL (8.5-10.1) Total Bilirubin 0.8mg/dL (0.2-1.0) Aspartate Amino Transf (AST/SGOT) 49U/L (15-37) Alanine Aminotransferase (ALT/SGPT) 37U/L (16-63) Alkaline Phosphatase 75U/L (46-116) Troponin I Quantitative 0.043ng/mL (0.000-0.055) MM-Egv-M-Type Natriuretic Peptide 28767av/mL (0-449) Total Protein 6.2g/dL (6.4-8.2) Albumin 3.0g/dL (3.4-5.0) Albumin/Globulin Ratio 0.9 (1.0-1.7) Laboratory Tests Test 10/31/16 06:30 White Blood Count 5.7x10^3/uL (4.0-11.0) Red Blood Count 2.41x10^6/uL (4.30-5.70) Hemoglobin 7.7g/dL (13.0-17.5) Hematocrit 23.8% (39.0-53.0) Mean Corpuscular Volume 99fL (79-100) Mean Corpuscular Hemoglobin 32pg (25-35) Mean Corpuscular Hemoglobin Concent 33g/dL (31-37) Red Cell Distribution Width 14.0% (11.5-14.5) Platelet Count 177x10^3/uL (140-400) Sodium Level 143mmol/L (136-145) Potassium Level 4.5mmol/L (3.5-5.1) Chloride Level 105mmol/L (98-107) Carbon Dioxide Level 28mmol/L (21-32) Anion Gap 10 (6-14) Blood Urea Nitrogen 38mg/dL (8-26) Creatinine 4.3mg/dL (0.7-1.3) Estimated GFR (Cockcroft-Gault) 13.2 Glucose Level 99mg/dL (70-99) Calcium Level 8.9mg/dL (8.5-10.1) Medications Active Scripts Medications Dose Route/Sig Days Date Category Casodex (Bicalutamide) 50 Mg Tablet 1 Tab PO DAILY16 10/14/16 Reported Tamsulosin Hcl 0.4 Mg Cap.er.24h 1 Cap PO QHS 01/27/16 Reported Procrit (Epoetin Emigdio) 4,000 Unit/1 Ml Vial 5,000 Unit IJ Q2WKS 03/20/14 Reported [place] (Saw [place] Fruit) 450 Mg Capsule 900 Mg PO DAILY 03/13/14 Reported Synthroid (Levothyroxine Sodium) 50 Mcg Tablet 75 Mcg PO DAILYAC 03/13/14 Reported Norvasc (Amlodipine Besylate) 10 Mg Tablet 5 Mg PO DAILY 03/13/14 Reported Calcitriol 0.25 Mcg Capsule 0.25 Mcg PO 4 TABLETS PER WEEK 03/13/14 Reported Finasteride 5 Mg Tablet 5 Mg PO DAILY 03/13/14 Reported Furosemide 10 Mg/1 Ml Solution 10 Mg PO DAILY 03/13/14 Reported Vitamin C (Ascorbate Calcium) 500 Mg Tablet 500 Mg PO DAILY 03/13/14 Reported Impression . 1. Acute respiratory failure, multifactorial. 2. Acute diastolic heart failure. 3. Possible pneumonia. 4. Large pericardial effusion. 5. End-stage renal disease. 6. 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 7. Chronic anemia. 8. Sick sinus syndrome, status post PPM Plan . 1. Underwent dialysis yesterday now better not requiring bipap 2. Consult cardiology, already performed. 3. deescated broad-spectrum antibiotics. 4. DVT and GI prophylaxis. 5. Titrate oxygen down to maintain sats above 92%. JESSE MILIAN MD Oct 31, 2016 12:55
[2016-10-31] MEDS: VANCOMYCIN PER PHARMACY MC PRN (13:02)
--- NOTE | 2016-10-31 13:23 | PDOC ---
PROGRESS NOTES Chief Complaint Chief Complaint 1 .syncope, recurrent, 2/2 cardiac dz likely 2. pericardial effusion, small to moderate 3. bl lung some infiltrate with possible pna 4. acute resp failure with fluid overloaded 5. ESRD on HD mwf 6. anemia , chronic 7. 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 HYPOthyroidism 10. 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 PPM, recently changed plan: 1. fu with card, renal, and pulm consult 2. on zosyn and vanco as per pulm 3. dc lasix, only 10mg daily, pt has about 50cc urine daily only 4. cont home meds , cont HD dvt ppx. ptot pt improves a lot with HD, PPM interrogated normal as per nurse hope dc in 1-2 days. History of Present Illness History of Present Illness sob better, on NC now Vitals Vitals Vital Signs Date Time Temp Pulse Resp B/P Pulse Ox O2 Delivery O2 Flow Rate FiO2 10/31/16 12:00 98.1 59 92/73 94 Nasal Cannula 2.0 98.1 10/31/16 00:00 27 Physical Exam General: Oriented X3, Cooperative, No acute distress, Other (drowsy) Heart: Regular rate (atrial paced), Normal S1, Normal S2, Other (3/6 systolic murmur to LLS border; S4) Abdomen: Soft, No tenderness Extremities: No cyanosis, Other (trace LE edema) Skin: No breakdown, No significant lesion Labs LABS Laboratory Tests Test 10/31/16 06:30 White Blood Count 5.7x10^3/uL (4.0-11.0) Red Blood Count 2.41x10^6/uL (4.30-5.70) Hemoglobin 7.7g/dL (13.0-17.5) Hematocrit 23.8% (39.0-53.0) Mean Corpuscular Volume 99fL (79-100) Mean Corpuscular Hemoglobin 32pg (25-35) Mean Corpuscular Hemoglobin Concent 33g/dL (31-37) Red Cell Distribution Width 14.0% (11.5-14.5) Platelet Count 177x10^3/uL (140-400) Sodium Level 143mmol/L (136-145) Potassium Level 4.5mmol/L (3.5-5.1) Chloride Level 105mmol/L (98-107) Carbon Dioxide Level 28mmol/L (21-32) Anion Gap 10 (6-14) Blood Urea Nitrogen 38mg/dL (8-26) Creatinine 4.3mg/dL (0.7-1.3) Estimated GFR (Cockcroft-Gault) 13.2 Glucose Level 99mg/dL (70-99) Calcium Level 8.9mg/dL (8.5-10.1) Assessment and Plan Assessmemt and Plan Problems Medical Problems: (1) Pericardial effusion Status: Acute (2) Syncope Status: Acute Problems: Comment Review of Relevant I have reviewed the following items edilberto (where applicable) has been applied. Labs Laboratory Tests Test 10/30/16 01:06 10/31/16 06:30 White Blood Count 7.6x10^3/uL (4.0-11.0) 5.7x10^3/uL (4.0-11.0) Red Blood Count 2.69x10^6/uL (4.30-5.70) 2.41x10^6/uL (4.30-5.70) Hemoglobin 8.6g/dL (13.0-17.5) 7.7g/dL (13.0-17.5) Hematocrit 26.5% (39.0-53.0) 23.8% (39.0-53.0) Mean Corpuscular Volume 99fL (79-100) 99fL (79-100) Mean Corpuscular Hemoglobin 32pg (25-35) 32pg (25-35) Mean Corpuscular Hemoglobin Concent 33g/dL (31-37) 33g/dL (31-37) Red Cell Distribution Width 13.9% (11.5-14.5) 14.0% (11.5-14.5) Platelet Count 199x10^3/uL (140-400) 177x10^3/uL (140-400) Neutrophils (%) (Auto) 78% (31-73) Lymphocytes (%) (Auto) 8% (24-48) Monocytes (%) (Auto) 12% (0-9) Eosinophils (%) (Auto) 1% (0-3) Basophils (%) (Auto) 0% (0-3) Neutrophils # (Auto) 5.9x10^3uL (1.8-7.7) Lymphocytes # (Auto) 0.6x10^3/uL (1.0-4.8) Monocytes # (Auto) 0.9x10^3/uL (0.0-1.1) Eosinophils # (Auto) 0.1x10^3/uL (0.0-0.7) Basophils # (Auto) 0.0x10^3/uL (0.0-0.2) Prothrombin Time 14.8SEC (11.7-14.0) Prothromb Time International Ratio 1.2 (0.8-1.1) Activated Partial Thromboplast Time 29SEC (24-38) Sodium Level 145mmol/L (136-145) 143mmol/L (136-145) Potassium Level 4.9mmol/L (3.5-5.1) 4.5mmol/L (3.5-5.1) Chloride Level 105mmol/L (98-107) 105mmol/L (98-107) Carbon Dioxide Level 31mmol/L (21-32) 28mmol/L (21-32) Anion Gap 9 (6-14) 10 (6-14) Blood Urea Nitrogen 43mg/dL (8-26) 38mg/dL (8-26) Creatinine 4.3mg/dL (0.7-1.3) 4.3mg/dL (0.7-1.3) Estimated GFR (Cockcroft-Gault) 13.2 13.2 BUN/Creatinine Ratio 10 (6-20) Glucose Level 109mg/dL (70-99) 99mg/dL (70-99) Calcium Level 9.0mg/dL (8.5-10.1) 8.9mg/dL (8.5-10.1) Total Bilirubin 0.8mg/dL (0.2-1.0) Aspartate Amino Transf (AST/SGOT) 49U/L (15-37) Alanine Aminotransferase (ALT/SGPT) 37U/L (16-63) Alkaline Phosphatase 75U/L (46-116) Troponin I Quantitative 0.043ng/mL (0.000-0.055) UT-Akf-H-Type Natriuretic Peptide 42057rc/mL (0-449) Total Protein 6.2g/dL (6.4-8.2) Albumin 3.0g/dL (3.4-5.0) Albumin/Globulin Ratio 0.9 (1.0-1.7) Laboratory Tests Test 10/31/16 06:30 White Blood Count 5.7x10^3/uL (4.0-11.0) Red Blood Count 2.41x10^6/uL (4.30-5.70) Hemoglobin 7.7g/dL (13.0-17.5) Hematocrit 23.8% (39.0-53.0) Mean Corpuscular Volume 99fL (79-100) Mean Corpuscular Hemoglobin 32pg (25-35) Mean Corpuscular Hemoglobin Concent 33g/dL (31-37) Red Cell Distribution Width 14.0% (11.5-14.5) Platelet Count 177x10^3/uL (140-400) Sodium Level 143mmol/L (136-145) Potassium Level 4.5mmol/L (3.5-5.1) Chloride Level 105mmol/L (98-107) Carbon Dioxide Level 28mmol/L (21-32) Anion Gap 10 (6-14) Blood Urea Nitrogen 38mg/dL (8-26) Creatinine 4.3mg/dL (0.7-1.3) Estimated GFR (Cockcroft-Gault) 13.2 Glucose Level 99mg/dL (70-99) Calcium Level 8.9mg/dL (8.5-10.1) Medications Current Medications Iohexol (Omnipaque 300 Mg/ml) 75 ml 1X ONCE IV Last administered on 10/30/16t 03:03; Start 10/30/16 at 03:00; Stop 10/30/16 at 03:01; Status DC Info (Do NOT chart on this entry -- for MONITORING) 1 each PRN DAILY PRN MC SEE COMMENTS; Start 10/30/16 at 02:45; Stop 11/01/16 at 02:44 Acetaminophen (Tylenol) 650 mg PRN Q4HRS PRN PO FEVER; Start 10/30/16 at 05:00 ; Stop 10/30/16 at 14:17; Status DC Darbepoetin Emigdio (Aranesp) 60 mcg Th SQ Last administered on 10/30/16 22:59; Start 10/30/16 at 21:00 Piperacillin Sod/ Tazobactam Sod (Zosyn Per Pharmacy) 1 each PRN DAILY PRN MC SEE COMMENTS; Start 10/30/16 at 14:00 Vancomycin HCl (Vanco Per Pharmacy) 1 each PRN DAILY PRN MC SEE COMMENTS Last administered on 10/31/16 13:02; Start 10/30/16 at 14:00 Albuterol Sulfate (Ventolin Neb Soln) 2.5 mg PRN Q2HR PRN NEB DYSPNEA; Start at 14:00 Famotidine (Pepcid) 20 mg Q48H PO Last administered on 10/30/16 22:59; Start 10/30/16 at 21:00 Amlodipine Besylate (Norvasc) 5 mg DAILY PO ; Start 10/31/16 at 09:00 Bicalutamide (Casodex) 50 mg DAILY16 PO Last administered on 10/30/16 22:58; Start 10/30/16 at 16:00 Finasteride (Proscar) 5 mg DAILY PO Last administered on 10/31/16 10:29; Start 10/31/16 at 09:00 Levothyroxine Sodium (Synthroid) 75 mcg DAILY07 PO Last administered on 08:49; Start 10/31/16 at 07:00 Tamsulosin HCl (Flomax) 0.4 mg QHS PO Last administered on 10/30/16 23:00; Start 10/30/16 at 21:00 Ascorbic Acid (Vitamin C) 500 mg DAILY PO Last administered on 10/31/16 10:29 ; Start 10/31/16 at 09:00 Non-Formulary Medication 5,000 unit Q2WKS IJ ; Start 11/13/16 at 09:00; Stop 11/13 at 09:00; Status DC Furosemide (Lasix) 10 mg DAILY PO Last administered on 10/31/16 10:29; Start 10/31/16 at 09:00 Non-Formulary Medication 900 mg 900 mg DAILY PO ; Start 10/31/16 at 09:00; Status UNV Piperacillin Sod/ Tazobactam Sod/ Sodium Chloride (Zosyn/Iv Sodium Chloride 0.9 % 50ml) 50 ml @ 100 mls/hr Q8HRS IV Last administered on 10/30/16 23:07; Start 10/30/16 at 14:30 Acetaminophen (Tylenol) 650 mg PRN Q6HRS PRN PO MILD PAIN / TEMP Last administered on 10/31/16 08:49; Start 10/30/16 at 14:15 Ondansetron HCl (Zofran) 4 mg PRN Q6HRS PRN IV NAUSEA/VOMITING; Start 10/30/16 at 14:15 Heparin Sodium (Porcine) 5000 unit 5,000 unit Q12HR SQ Last administered on 10:30; Start 10/30/16 at 21:00 Vancomycin HCl/ Sodium Chloride (Iv Sodium Chloride 0.9% 500ml Bag) 500 ml @ 250 mls/hr 1X ONCE IV Last administered on 10/30/16 15:00; Start 10/30/16 at 15:00; Stop 10/30/16 at 16:59; Status DC Info (PHARMACY MONITORING -- do not chart) 1 each PRN DAILY PRN MC SEE COMMENTS ; Start 10/30/16 at 14:45; Status Cancel Info (PHARMACY MONITORING -- do not chart) 1 each PRN DAILY PRN MC SEE COMMENTS ; Start 10/30/16 at 16:45; Status UNV Info 1 each 1 each PRN DAILY PRN MC SEE COMMENTS; Start 10/30/16 at 16:45; Status UNV Sodium Chloride (Iv Sodium Chloride 0.9% 1000ml Bag) 1,000 ml @ 1,000 mls/hr Q1H PRN IV hypotension; Start 10/31/16 at 06:51; Stop 10/31/16 at 12:50; Status DC Info (PHARMACY MONITORING -- do not chart) 1 each PRN DAILY PRN MC SEE COMMENTS ; Start 10/31/16 at 07:00; Status UNV Info (PHARMACY MONITORING -- do not chart) 1 each PRN DAILY PRN MC SEE COMMENTS ; Start 10/31/16 at 07:00 Vancomycin HCl 1 each 1 each 1X ONCE MC ; Start 10/31/16 at 20:00; Stop at 20:01 Piperacillin Sod/ Tazobactam Sod/ Sodium Chloride (Zosyn/Iv Sodium Chloride 0.9 % 50ml) 50 ml @ 100 mls/hr Q6HRS IV ; Start 10/31/16 at 18:00; Stop 10/31/16 at 18:00; Status DC Active Scripts Active Reported Casodex (Bicalutamide) 50 Mg Tablet 1 Tab PO DAILY16 Tamsulosin Hcl 0.4 Mg Cap.er.24h 1 Cap PO QHS Procrit (Epoetin Emigdio) 4,000 Unit/1 Ml Vial 5,000 Unit IJ Q2WKS Saw Orange (Saw Orange Fruit) 450 Mg Capsule 900 Mg PO DAILY Synthroid (Levothyroxine Sodium) 50 Mcg Tablet 75 Mcg PO DAILYAC Norvasc (Amlodipine Besylate) 10 Mg Tablet 5 Mg PO DAILY Calcitriol 0.25 Mcg Capsule 0.25 Mcg PO 4 TABLETS PER WEEK Finasteride 5 Mg Tablet 5 Mg PO DAILY Furosemide 10 Mg/1 Ml Solution 10 Mg PO DAILY Vitamin C (Ascorbate Calcium) 500 Mg Tablet 500 Mg PO DAILY Vitals/I & O Vital Sign - Last 24 Hours 10/30/16 10/30/16 10/30/16 10/30/16 16:00 16:13 20:00 20:00 Temp 97.4 97.4 97.4 97.4 Pulse 60 60 Resp 21 B/P 108/37 108/37 Pulse Ox 96 96 96 O2 Delivery Venturi Mask Venturi Mask Venturi Mask Nasal Cannula O2 Flow Rate 15.0 15.0 15.0 4.0 10/31/16 10/31/16 10/31/16 10/31/16 00:00 04:00 08:00 08:00 Temp 98.3 97.4 97.9 98.3 97.4 97.9 Pulse 60 60 60 Resp 27 B/P 114/59 108/37 100/49 Pulse Ox 96 96 98 O2 Delivery Nasal Cannula Venturi Mask Nasal Cannula Nasal Cannula O2 Flow Rate 4.0 15.0 4.0 4.0 10/31/16 10/31/16 09:00 12:00 Temp 98.1 98.1 Pulse 60 59 B/P 100/49 92/73 Pulse Ox 94 O2 Delivery Nasal Cannula O2 Flow Rate 2.0 Intake and Output 10/30/16 10/30/16 10/31/16 15:00 23:00 07:00 Intake Total 0 ml 350 ml 50 ml Output Total 100 ml 100 ml Balance 0 ml 250 ml -50 ml VIVEK GUEVARA MD Oct 31, 2016 13:23
[2016-10-31 16:00] VITALS: BP 90/39
[2016-10-31] MEDS: BICALUTAMIDE 50 MG TABLET PO SCH (16:21)
[2016-10-31] MEDS ORDERED: PIPERACILLIN/TAZOBACTAM 2.25 GM in IV NORMAL SALINE 50ML 50 ML IV SCH (18:00)
[2016-10-31] MEDS ORDERED: VANCOMYCIN RANDOM LEVEL. MC ONE (20:00)
[2016-10-31 20:08] VITALS: BP 99/50
[2016-10-31] MEDS: TAMSULOSIN 0.4 MG CAP.ER.24H. PO SCH (20:34)
[2016-11-01] VITALS (7 sets, daily range): BP systolic 98–123; BP diastolic 48–59
[2016-11-01 05:00] LABS: BASO % 0 % (0-3); EOS % 3 % (0-3); HEMATOCRIT 24.1 % (39.0-53.0); LYMPH # 0.8 x10^3/uL (1.0-4.8); LYMPH % 13 % (24-48); MEAN CORPUSCULAR HEMOGLOBIN 32 pg (25-35); MEAN CORPUSCULAR HGB CONC 33 g/dL (31-37); MEAN CORPUSCULAR VOLUME 97 fL (79-100); MONO % 13 % (0-9); NEUT % 71 % (31-73); PLATELET COUNT 180 x10^3/uL (140-400); RED BLOOD COUNT 2.48 x10^6/uL (4.30-5.70); RED CELL DISTRIBUTION WIDTH 13.6 % (11.5-14.5); WHITE BLOOD COUNT 5.8 x10^3/uL (4.0-11.0)
[2016-11-01] MEDS: PIPERACILLIN/TAZOBACTAM 2.25 GM in IV NORMAL SALINE 50ML 50 ML IV SCH ×3 (05:34→22:13)
[2016-11-01] MEDS: LEVOTHYROXINE 75 MCG TABLET PO SCH (05:34)
--- NOTE | 2016-11-01 06:08 | PDOC ---
PULMONARY PROGRESS NOTES Subjective sob, better, has occ cough, no pain, no runny nose. Vitals Vital Signs Date Time Temp Pulse Resp B/P Pulse Ox O2 Delivery O2 Flow Rate FiO2 11/01/16 03:54 98.3 60 102/52 92 Room Air 98.3 11/01/16 00:00 2.0 10/31/16 20:08 16 Comments ros as mentioned as above, discussed w rn, other sys otherwise neg ROS: No Nausea, No Chest Pain, No Abdominal Pain, No Increase Cough General: Alert HEENT: Other (nc at perrl) Lungs: Crackles Cardiovascular: S1, S2 Abdomen: Soft, Non-tender Neuro Exam: Alert Extremities: No Edema Skin: Warm Labs Laboratory Tests Test 10/31/16 06:30 11/01/16 04:15 White Blood Count 5.7x10^3/uL (4.0-11.0) 5.8x10^3/uL (4.0-11.0) Red Blood Count 2.41x10^6/uL (4.30-5.70) 2.48x10^6/uL (4.30-5.70) Hemoglobin 7.7g/dL (13.0-17.5) 8.0g/dL (13.0-17.5) Hematocrit 23.8% (39.0-53.0) 24.1% (39.0-53.0) Mean Corpuscular Volume 99fL (79-100) 97fL (79-100) Mean Corpuscular Hemoglobin 32pg (25-35) 32pg (25-35) Mean Corpuscular Hemoglobin Concent 33g/dL (31-37) 33g/dL (31-37) Red Cell Distribution Width 14.0% (11.5-14.5) 13.6% (11.5-14.5) Platelet Count 177x10^3/uL (140-400) 180x10^3/uL (140-400) Sodium Level 143mmol/L (136-145) Potassium Level 4.5mmol/L (3.5-5.1) Chloride Level 105mmol/L (98-107) Carbon Dioxide Level 28mmol/L (21-32) Anion Gap 10 (6-14) Blood Urea Nitrogen 38mg/dL (8-26) Creatinine 4.3mg/dL (0.7-1.3) Estimated GFR (Cockcroft-Gault) 13.2 Glucose Level 99mg/dL (70-99) Calcium Level 8.9mg/dL (8.5-10.1) Neutrophils (%) (Auto) 71% (31-73) Lymphocytes (%) (Auto) 13% (24-48) Monocytes (%) (Auto) 13% (0-9) Eosinophils (%) (Auto) 3% (0-3) Basophils (%) (Auto) 0% (0-3) Neutrophils # (Auto) 4.1x10^3uL (1.8-7.7) Lymphocytes # (Auto) 0.8x10^3/uL (1.0-4.8) Monocytes # (Auto) 0.8x10^3/uL (0.0-1.1) Eosinophils # (Auto) 0.1x10^3/uL (0.0-0.7) Basophils # (Auto) 0.0x10^3/uL (0.0-0.2) Laboratory Tests Test 10/31/16 06:30 11/01/16 04:15 White Blood Count 5.7x10^3/uL (4.0-11.0) 5.8x10^3/uL (4.0-11.0) Red Blood Count 2.41x10^6/uL (4.30-5.70) 2.48x10^6/uL (4.30-5.70) Hemoglobin 7.7g/dL (13.0-17.5) 8.0g/dL (13.0-17.5) Hematocrit 23.8% (39.0-53.0) 24.1% (39.0-53.0) Mean Corpuscular Volume 99fL (79-100) 97fL (79-100) Mean Corpuscular Hemoglobin 32pg (25-35) 32pg (25-35) Mean Corpuscular Hemoglobin Concent 33g/dL (31-37) 33g/dL (31-37) Red Cell Distribution Width 14.0% (11.5-14.5) 13.6% (11.5-14.5) Platelet Count 177x10^3/uL (140-400) 180x10^3/uL (140-400) Sodium Level 143mmol/L (136-145) Potassium Level 4.5mmol/L (3.5-5.1) Chloride Level 105mmol/L (98-107) Carbon Dioxide Level 28mmol/L (21-32) Anion Gap 10 (6-14) Blood Urea Nitrogen 38mg/dL (8-26) Creatinine 4.3mg/dL (0.7-1.3) Estimated GFR (Cockcroft-Gault) 13.2 Glucose Level 99mg/dL (70-99) Calcium Level 8.9mg/dL (8.5-10.1) Neutrophils (%) (Auto) 71% (31-73) Lymphocytes (%) (Auto) 13% (24-48) Monocytes (%) (Auto) 13% (0-9) Eosinophils (%) (Auto) 3% (0-3) Basophils (%) (Auto) 0% (0-3) Neutrophils # (Auto) 4.1x10^3uL (1.8-7.7) Lymphocytes # (Auto) 0.8x10^3/uL (1.0-4.8) Monocytes # (Auto) 0.8x10^3/uL (0.0-1.1) Eosinophils # (Auto) 0.1x10^3/uL (0.0-0.7) Basophils # (Auto) 0.0x10^3/uL (0.0-0.2) Medications Active Scripts Medications Dose Route/Sig Days Date Category Casodex (Bicalutamide) 50 Mg Tablet 1 Tab PO DAILY16 10/14/16 Reported Tamsulosin Hcl 0.4 Mg Cap.er.24h 1 Cap PO QHS 01/27/16 Reported Procrit (Epoetin Emigdio) 4,000 Unit/1 Ml Vial 5,000 Unit IJ Q2WKS 03/20/14 Reported Saw Mcdermitt (Saw Mcdermitt Fruit) 450 Mg Capsule 900 Mg PO DAILY 03/13/14 Reported Synthroid (Levothyroxine Sodium) 50 Mcg Tablet 75 Mcg PO DAILYAC 03/13/14 Reported Norvasc (Amlodipine Besylate) 10 Mg Tablet 5 Mg PO DAILY 03/13/14 Reported Calcitriol 0.25 Mcg Capsule 0.25 Mcg PO 4 TABLETS PER WEEK 03/13/14 Reported Finasteride 5 Mg Tablet 5 Mg PO DAILY 03/13/14 Reported Furosemide 10 Mg/1 Ml Solution 10 Mg PO DAILY 03/13/14 Reported Vitamin C (Ascorbate Calcium) 500 Mg Tablet 500 Mg PO DAILY 03/13/[address] of chest reviewed, 1. No CT evidence of pulmonary embolus. 2. Large pericardial effusion. 3. Small bilateral pleural effusions. 4. Patchy consolidations in the lower lobes. Atelectasis or bronchopneumonia are considerations. 5. Cardiomegaly. Impression . 1. Acute respiratory failure, multifactorial. 2. Acute diastolic heart failure. 3. Possible pneumonia. 4. Large pericardial effusion, per cardiology. 5. End-stage renal disease. 6. 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 7. Chronic anemia. 8. Sick sinus syndrome, status post PPM Plan . 1. cont dialysis, not requiring bipap 2. cardiology on case 3. deescated broad-spectrum antibiotics. 4. DVT and GI prophylaxis. 5. Titrate oxygen down to maintain sats above 92%. 6. pt ot ? out of icu discussed w rn, pt GEMA GRIFFIN MD Nov 01, 2016 06:08
[2016-11-01 06:20] LABS: CALCIUM 8.6 mg/dL (8.5-10.1); CREATININE 3.6 mg/dL (0.7-1.3); GFR 16.2; POTASSIUM 3.9 mmol/L (3.5-5.1)
[2016-11-01] MEDS: ASCORBIC ACID 500 MG TABLET PO SCH (08:44)
[2016-11-01] MEDS: FINASTERIDE 5 MG TABLET PO SCH (08:44)
[2016-11-01] MEDS: AMLODIPINE BESYLATE 5 MG TABLET PO SCH (08:44)
[2016-11-01] MEDS: HEPARIN PF for SUB-Q USE 5,000 UNIT/0.5 ML VIAL. SQ SCH ×2 (08:46→22:20)
--- NOTE | 2016-11-01 13:13 | PDOC ---
PROGRESS NOTES Chief Complaint Chief Complaint 1 .syncope, recurrent, 2/2 cardiac dz likely 2. pericardial effusion, small to moderate 3. bl lung some infiltrate with possible pna 4. acute resp failure with fluid overloaded 5. ESRD on HD mwf 6. anemia , chronic 7. 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 PPM, recently changed plan: 1. fu with card, renal, and pulm consult 2. on zosyn as per pulm, off vanco now 3. dc lasix, only 10mg daily, pt has about 50cc urine daily only 4. cont home meds , cont HD dvt ppx. ptot pt improves a lot with HD, PPM interrogated normal as per nurse hope dc in 1-2 days. History of Present Illness History of Present Illness sob much better, on RA Vitals Vitals Vital Signs Date Time Temp Pulse Resp B/P Pulse Ox O2 Delivery O2 Flow Rate FiO2 11/01/16 08:44 62 102/50 11/01/16 08:00 Room Air 11/01/16 08:00 98.1 18 98 98.1 11/01/16 00:00 2.0 Physical Exam General: Oriented X3, Cooperative, No acute distress, Other (drowsy) Heart: Regular rate (atrial paced), Normal S1, Normal S2, Other (3/6 systolic murmur to LLS border; S4) Lungs: Crackles Abdomen: Soft, No tenderness Extremities: No cyanosis, Other (trace LE edema) Skin: No breakdown, No significant lesion Labs LABS Laboratory Tests Test 11/01/16 04:15 White Blood Count 5.8x10^3/uL (4.0-11.0) Red Blood Count 2.48x10^6/uL (4.30-5.70) Hemoglobin 8.0g/dL (13.0-17.5) Hematocrit 24.1% (39.0-53.0) Mean Corpuscular Volume 97fL (79-100) Mean Corpuscular Hemoglobin 32pg (25-35) Mean Corpuscular Hemoglobin Concent 33g/dL (31-37) Red Cell Distribution Width 13.6% (11.5-14.5) Platelet Count 180x10^3/uL (140-400) Neutrophils (%) (Auto) 71% (31-73) Lymphocytes (%) (Auto) 13% (24-48) Monocytes (%) (Auto) 13% (0-9) Eosinophils (%) (Auto) 3% (0-3) Basophils (%) (Auto) 0% (0-3) Neutrophils # (Auto) 4.1x10^3uL (1.8-7.7) Lymphocytes # (Auto) 0.8x10^3/uL (1.0-4.8) Monocytes # (Auto) 0.8x10^3/uL (0.0-1.1) Eosinophils # (Auto) 0.1x10^3/uL (0.0-0.7) Basophils # (Auto) 0.0x10^3/uL (0.0-0.2) Sodium Level 140mmol/L (136-145) Potassium Level 3.9mmol/L (3.5-5.1) Chloride Level 100mmol/L (98-107) Carbon Dioxide Level 31mmol/L (21-32) Anion Gap 9 (6-14) Blood Urea Nitrogen 38mg/dL (8-26) Creatinine 3.6mg/dL (0.7-1.3) Estimated GFR (Cockcroft-Gault) 16.2 Glucose Level 107mg/dL (70-99) Calcium Level 8.6mg/dL (8.5-10.1) Review of Systems Review of Systems no fever, chills, sob or chest pain Assessment and Plan Assessmemt and Plan Problems Medical Problems: (1) Pericardial effusion Status: Acute (2) Syncope Status: Acute Problems: Comment Review of Relevant I have reviewed the following items edilberto (where applicable) has been applied. Labs Laboratory Tests Test 10/31/16 06:30 11/01/16 04:15 White Blood Count 5.7x10^3/uL (4.0-11.0) 5.8x10^3/uL (4.0-11.0) Red Blood Count 2.41x10^6/uL (4.30-5.70) 2.48x10^6/uL (4.30-5.70) Hemoglobin 7.7g/dL (13.0-17.5) 8.0g/dL (13.0-17.5) Hematocrit 23.8% (39.0-53.0) 24.1% (39.0-53.0) Mean Corpuscular Volume 99fL (79-100) 97fL (79-100) Mean Corpuscular Hemoglobin 32pg (25-35) 32pg (25-35) Mean Corpuscular Hemoglobin Concent 33g/dL (31-37) 33g/dL (31-37) Red Cell Distribution Width 14.0% (11.5-14.5) 13.6% (11.5-14.5) Platelet Count 177x10^3/uL (140-400) 180x10^3/uL (140-400) Sodium Level 143mmol/L (136-145) 140mmol/L (136-145) Potassium Level 4.5mmol/L (3.5-5.1) 3.9mmol/L (3.5-5.1) Chloride Level 105mmol/L (98-107) 100mmol/L (98-107) Carbon Dioxide Level 28mmol/L (21-32) 31mmol/L (21-32) Anion Gap 10 (6-14) 9 (6-14) Blood Urea Nitrogen 38mg/dL (8-26) 38mg/dL (8-26) Creatinine 4.3mg/dL (0.7-1.3) 3.6mg/dL (0.7-1.3) Estimated GFR (Cockcroft-Gault) 13.2 16.2 Glucose Level 99mg/dL (70-99) 107mg/dL (70-99) Calcium Level 8.9mg/dL (8.5-10.1) 8.6mg/dL (8.5-10.1) Neutrophils (%) (Auto) 71% (31-73) Lymphocytes (%) (Auto) 13% (24-48) Monocytes (%) (Auto) 13% (0-9) Eosinophils (%) (Auto) 3% (0-3) Basophils (%) (Auto) 0% (0-3) Neutrophils # (Auto) 4.1x10^3uL (1.8-7.7) Lymphocytes # (Auto) 0.8x10^3/uL (1.0-4.8) Monocytes # (Auto) 0.8x10^3/uL (0.0-1.1) Eosinophils # (Auto) 0.1x10^3/uL (0.0-0.7) Basophils # (Auto) 0.0x10^3/uL (0.0-0.2) Laboratory Tests Test 11/01/16 04:15 White Blood Count 5.8x10^3/uL (4.0-11.0) Red Blood Count 2.48x10^6/uL (4.30-5.70) Hemoglobin 8.0g/dL (13.0-17.5) Hematocrit 24.1% (39.0-53.0) Mean Corpuscular Volume 97fL (79-100) Mean Corpuscular Hemoglobin 32pg (25-35) Mean Corpuscular Hemoglobin Concent 33g/dL (31-37) Red Cell Distribution Width 13.6% (11.5-14.5) Platelet Count 180x10^3/uL (140-400) Neutrophils (%) (Auto) 71% (31-73) Lymphocytes (%) (Auto) 13% (24-48) Monocytes (%) (Auto) 13% (0-9) Eosinophils (%) (Auto) 3% (0-3) Basophils (%) (Auto) 0% (0-3) Neutrophils # (Auto) 4.1x10^3uL (1.8-7.7) Lymphocytes # (Auto) 0.8x10^3/uL (1.0-4.8) Monocytes # (Auto) 0.8x10^3/uL (0.0-1.1) Eosinophils # (Auto) 0.1x10^3/uL (0.0-0.7) Basophils # (Auto) 0.0x10^3/uL (0.0-0.2) Sodium Level 140mmol/L (136-145) Potassium Level 3.9mmol/L (3.5-5.1) Chloride Level 100mmol/L (98-107) Carbon Dioxide Level 31mmol/L (21-32) Anion Gap 9 (6-14) Blood Urea Nitrogen 38mg/dL (8-26) Creatinine 3.6mg/dL (0.7-1.3) Estimated GFR (Cockcroft-Gault) 16.2 Glucose Level 107mg/dL (70-99) Calcium Level 8.6mg/dL (8.5-10.1) Medications Current Medications Iohexol (Omnipaque 300 Mg/ml) 75 ml 1X ONCE IV Last administered on 10/30/16 03:03; Start 10/30/16 at 03:00; Stop 10/30/16 at 03:01; Status DC Info (Do NOT chart on this entry -- for MONITORING) 1 each PRN DAILY PRN MC SEE COMMENTS; Start 10/30/16 at 02:45; Stop 11/01/16 at 02:44; Status DC Acetaminophen (Tylenol) 650 mg PRN Q4HRS PRN PO FEVER; Start 10/30/16 at 05:00 ; Stop 10/30/16 at 14:17; Status DC Darbepoetin Emigdio (Aranesp) 60 mcg Th SQ Last administered on 10/30/16 22:59; Start 10/30/16 at 21:00 Piperacillin Sod/ Tazobactam Sod (Zosyn Per Pharmacy) 1 each PRN DAILY PRN MC SEE COMMENTS; Start 10/30/16 at 14:00 Vancomycin HCl (Vanco Per Pharmacy) 1 each PRN DAILY PRN MC SEE COMMENTS Last administered on 10/31/16 13:02; Start 10/30/16 at 14:00; Stop 10/31/16 at 18:31 ; Status DC Albuterol Sulfate (Ventolin Neb Soln) 2.5 mg PRN Q2HR PRN NEB DYSPNEA; Start at 14:00 Famotidine (Pepcid) 20 mg Q48H PO Last administered on 10/30/16 22:59; Start 10/30/16 at 21:00 Amlodipine Besylate (Norvasc) 5 mg DAILY PO Last administered on 11/01/16 08: 44; Start 10/31/16 at 09:00 Bicalutamide (Casodex) 50 mg DAILY16 PO Last administered on 10/31/16 16:21; Start 10/30/16 at 16:00 Finasteride (Proscar) 5 mg DAILY PO Last administered on 11/01/16 08:44; Start 10/31/16 at 09:00 Levothyroxine Sodium (Synthroid) 75 mcg DAILY07 PO Last administered on 05:34; Start 10/31/16 at 07:00 Tamsulosin HCl (Flomax) 0.4 mg QHS PO Last administered on 10/31/16 20:34; Start 10/30/16 at 21:00 Ascorbic Acid (Vitamin C) 500 mg DAILY PO Last administered on 11/01/16 08:44 ; Start 10/31/16 at 09:00 Non-Formulary Medication 5,000 unit Q2WKS IJ ; Start 11/13/16 at 09:00; Stop 11/13 at 09:00; Status DC Furosemide (Lasix) 10 mg DAILY PO Last administered on 10/31/16 10:29; Start 10/31/16 at 09:00; Stop 10/31/16 at 13:22; Status DC Non-Formulary Medication 900 mg 900 mg DAILY PO ; Start 10/31/16 at 09:00; Status UNV Piperacillin Sod/ Tazobactam Sod/ Sodium Chloride (Zosyn/Iv Sodium Chloride 0.9 % 50ml) 50 ml @ 100 mls/hr Q8HRS IV Last administered on 11/01/16 05:34; Start 10/30/16 at 14:30 Acetaminophen (Tylenol) 650 mg PRN Q6HRS PRN PO MILD PAIN / TEMP Last administered on 10/31/16 17:40; Start 10/30/16 at 14:15 Ondansetron HCl (Zofran) 4 mg PRN Q6HRS PRN IV NAUSEA/VOMITING; Start 10/30/16 at 14:15 Heparin Sodium (Porcine) 5000 unit 5,000 unit Q12HR SQ Last administered on 08:46; Start 10/30/16 at 21:00 Vancomycin HCl/ Sodium Chloride (Iv Sodium Chloride 0.9% 500ml Bag) 500 ml @ 250 mls/hr 1X ONCE IV Last administered on 10/30/16 15:00; Start 10/30/16 at 15:00; Stop 10/30/16 at 16:59; Status DC Info (PHARMACY MONITORING -- do not chart) 1 each PRN DAILY PRN MC SEE COMMENTS ; Start 10/30/16 at 14:45; Status Cancel Info (PHARMACY MONITORING -- do not chart) 1 each PRN DAILY PRN MC SEE COMMENTS ; Start 10/30/16 at 16:45; Status UNV Info 1 each 1 each PRN DAILY PRN MC SEE COMMENTS; Start 10/30/16 at 16:45; Status UNV Sodium Chloride (Iv Sodium Chloride 0.9% 1000ml Bag) 1,000 ml @ 1,000 mls/hr Q1H PRN IV hypotension; Start 10/31/16 at 06:51; Stop 10/31/16 at 12:50; Status DC Info (PHARMACY MONITORING -- do not chart) 1 each PRN DAILY PRN MC SEE COMMENTS ; Start 10/31/16 at 07:00; Status UNV Info (PHARMACY MONITORING -- do not chart) 1 each PRN DAILY PRN MC SEE COMMENTS ; Start 10/31/16 at 07:00 Vancomycin HCl 1 each 1 each 1X ONCE MC ; Start 10/31/16 at 20:00; Stop at 20:00; Status DC Piperacillin Sod/ Tazobactam Sod/ Sodium Chloride (Zosyn/Iv Sodium Chloride 0.9 % 50ml) 50 ml @ 100 mls/hr Q6HRS IV ; Start 10/31/16 at 18:00; Stop 10/31/16 at 18:00; Status DC Active Scripts Active Reported Casodex (Bicalutamide) 50 Mg Tablet 1 Tab PO DAILY16 Tamsulosin Hcl 0.4 Mg Cap.er.24h 1 Cap PO QHS Procrit (Epoetin Emigdio) 4,000 Unit/1 Ml Vial 5,000 Unit IJ Q2WKS Saw [place] (Saw [place] Fruit) 450 Mg Capsule 900 Mg PO DAILY Synthroid (Levothyroxine Sodium) 50 Mcg Tablet 75 Mcg PO DAILYAC Norvasc (Amlodipine Besylate) 10 Mg Tablet 5 Mg PO DAILY Calcitriol 0.25 Mcg Capsule 0.25 Mcg PO 4 TABLETS PER WEEK Finasteride 5 Mg Tablet 5 Mg PO DAILY Furosemide 10 Mg/1 Ml Solution 10 Mg PO DAILY Vitamin C (Ascorbate Calcium) 500 Mg Tablet 500 Mg PO DAILY Vitals/I & O Vital Sign - Last 24 Hours 10/31/16 10/31/16 10/31/16 11/01/16 16:00 19:46 20:08 00:00 Temp 98.1 98.2 98.1 98.1 98.2 98.1 Pulse 63 60 64 Resp 16 B/P 90/39 99/50 102/48 Pulse Ox 95 93 95 O2 Delivery Nasal Cannula Nasal Cannula Nasal Cannula Nasal Cannula O2 Flow Rate 2.0 2.0 2.0 2.0 11/01/16 11/01/16 11/01/16 11/01/16 03:54 08:00 08:00 08:44 Temp 98.3 98.1 98.3 98.1 Pulse 60 62 62 Resp 18 B/P 102/52 105/50 102/50 Pulse Ox 92 98 O2 Delivery Room Air Room Air Room Air Intake and Output 10/31/16 10/31/16 11/01/16 15:00 23:00 07:00 Intake Total 0 ml 500 ml 250 ml Balance 0 ml 500 ml 250 ml VIVEK GUEVARA MD Nov 01, 2016 13:13
--- NOTE | 2016-11-01 13:17 | PDOC ---
SUBJECTIVE ROS ESRD DOing OK overall CVS: no Orthopnea, no CP RESP: no SOB, no VELA GI: no Nausea, no Vomiting : no Dysuria, no Urgency OBJECTIVE Vital Signs Vital Signs Date Time Temp Pulse Resp B/P Pulse Ox O2 Delivery O2 Flow Rate FiO2 11/01/16 08:44 62 102/50 11/01/16 08:00 Room Air 11/01/16 08:00 98.1 18 98 98.1 11/01/16 00:00 2.0 I & 0 Intake and Output 11/01/16 07:00 Intake Total 750 ml Balance 750 ml Intake Oral 750 ml # Bowel Movements 1 PHYSICAL EXAM Physical Exam GEN: Awake, Oriented x 3, In no distress EYES: Vision Unchanged, Conjunctiva Normal EN: No EN Drainage, Mucous Membranes moist NECK: no JVD, min JVP, Supple, no Thyromegaly CVS: S1S2, soft Murmur, No Gallop, No Rub,no Edema RESP: few RLL Rales, no Rhonchi,no Acc. Muscle Use; Dec AE in LLL GI: BS + ve, NO Bruit, Non Tender, Non Distended : no CVA tenderness, no Suprapubic Tenderness DIAGNOSIS/ASSESSMENT Assessment & Plan ESRD: Current fluid and E-lyte status does not necessitate emergent need for dialysis. Will re-evaluate for dialysis in the am and continue on MWF schedule. ANEMIA; Aranap as ordered, Transfuse with next HD as needed Marginal BP: Current meds as reviewed. See orders for changes. ? IVF BOlus prn KIESHA/ BONE & MINERAL: check Phos and alter binders as needed Pericardial Eff - defer to Cardiology to manage. ? Needs tap. Discussed Plan of Care with family () at bedside Problems: COMMENT/RELEVANT DATA Meds Current Medications Medications (Trade) Dose Ordered Sig/Jaylin Start Time Stop Time Status Last Admin Dose Admin Acetaminophen (Tylenol) 650 mg PRN Q6HRS PRN 10/30/16 14:15 10/31/16 17:40 650 MG Albuterol Sulfate (Ventolin Neb Soln) 2.5 mg PRN Q2HR PRN 10/30/16 14:00 Amlodipine Besylate (Norvasc) 5 mg DAILY 10/31/16 09:00 11/01/16 08:44 5 MG Ascorbic Acid (Vitamin C) 500 mg DAILY 10/31/16 09:00 11/01/16 08:44 500 MG Bicalutamide (Casodex) 50 mg DAILY16 10/30/16 16:00 10/31/16 16:21 50 MG Darbepoetin Emigdio (Aranesp) 60 mcg Th 10/30/16 21:00 10/30/16 22:59 60 MCG Famotidine (Pepcid) 20 mg Q48H 10/30/16 21:00 10/30/16 22:59 20 MG Finasteride (Proscar) 5 mg DAILY 10/31/16 09:00 11/01/16 08:44 5 MG Furosemide (Lasix) 10 mg DAILY 10/31/16 09:00 10/31/16 13:22 DC 10/31/16 10:29 10 MG Heparin Sodium (Porcine) 5000 unit 5,000 unit Q12HR 10/30/16 21:00 11/01/16 08:46 5,000 UNIT Info (Do NOT chart on this entry -- for MONITORING) 1 each PRN DAILY PRN 10/30/16 02:45 11/01/16 02:44 DC Info (PHARMACY MONITORING -- do not chart) 1 each PRN DAILY PRN 10/31/16 07:00 Info 1 each 1 each PRN DAILY PRN 10/30/16 16:45 UNV Iohexol (Omnipaque 300 Mg/ml) 75 ml 1X ONCE 10/30/16 03:00 10/30/16 03:01 DC 10/30/16 03:03 75 ML Levothyroxine Sodium (Synthroid) 75 mcg DAILY07 10/31/16 07:00 11/01/16 05:34 75 MCG Non-Formulary Medication 900 mg DAILY 10/31/16 09:00 UNV Ondansetron HCl (Zofran) 4 mg PRN Q6HRS PRN 10/30/16 14:15 Piperacillin Sod/ Tazobactam Sod (Zosyn Per Pharmacy) 1 each PRN DAILY PRN 10/30/16 14:00 Piperacillin Sod/ Tazobactam Sod/ Sodium Chloride (Zosyn/Iv Sodium Chloride 0.9% 50ml) 50 ml @ 100 mls/hr Q6HRS 10/31/16 18:00 10/31/16 18:00 DC Sodium Chloride (Iv Sodium Chloride 0.9% 1000ml Bag) 1,000 ml @ 1,000 mls/hr Q1H PRN 10/31/16 06:51 10/31/16 12:50 DC Tamsulosin HCl (Flomax) 0.4 mg QHS 10/30/16 21:00 10/31/16 20:34 0.4 MG Vancomycin HCl (Vanco Per Pharmacy) 1 each PRN DAILY PRN 10/30/16 14:00 10/31/16 18:31 DC 10/31/16 13:02 1 EACH Vancomycin HCl 1 each 1 each 1X ONCE 10/31/16 20:00 10/31/16 20:00 DC Vancomycin HCl/ Sodium Chloride (Iv Sodium Chloride 0.9% 500ml Bag) 500 ml @ 250 mls/hr 1X ONCE 10/30/16 15:00 10/30/16 16:59 DC 10/30/16 15:00 250 MLS/HR Lab Laboratory Tests Test 11/01/16 04:15 White Blood Count 5.8x10^3/uL (4.0-11.0) Red Blood Count 2.48x10^6/uL (4.30-5.70) Hemoglobin 8.0g/dL (13.0-17.5) Hematocrit 24.1% (39.0-53.0) Mean Corpuscular Volume 97fL (79-100) Mean Corpuscular Hemoglobin 32pg (25-35) Mean Corpuscular Hemoglobin Concent 33g/dL (31-37) Red Cell Distribution Width 13.6% (11.5-14.5) Platelet Count 180x10^3/uL (140-400) Neutrophils (%) (Auto) 71% (31-73) Lymphocytes (%) (Auto) 13% (24-48) Monocytes (%) (Auto) 13% (0-9) Eosinophils (%) (Auto) 3% (0-3) Basophils (%) (Auto) 0% (0-3) Neutrophils # (Auto) 4.1x10^3uL (1.8-7.7) Lymphocytes # (Auto) 0.8x10^3/uL (1.0-4.8) Monocytes # (Auto) 0.8x10^3/uL (0.0-1.1) Eosinophils # (Auto) 0.1x10^3/uL (0.0-0.7) Basophils # (Auto) 0.0x10^3/uL (0.0-0.2) Sodium Level 140mmol/L (136-145) Potassium Level 3.9mmol/L (3.5-5.1) Chloride Level 100mmol/L (98-107) Carbon Dioxide Level 31mmol/L (21-32) Anion Gap 9 (6-14) Blood Urea Nitrogen 38mg/dL (8-26) Creatinine 3.6mg/dL (0.7-1.3) Estimated GFR (Cockcroft-Gault) 16.2 Glucose Level 107mg/dL (70-99) Calcium Level 8.6mg/dL (8.5-10.1) CLARENCE MAYERS MD Nov 01, 2016 13:17
[2016-11-01] MEDS: BICALUTAMIDE 50 MG TABLET PO SCH (16:00)
[2016-11-01] MEDS: TAMSULOSIN 0.4 MG CAP.ER.24H. PO SCH (22:12)
[2016-11-01] MEDS: FAMOTIDINE 20 MG TABLET. PO SCH (22:12)
[2016-11-02 03:55] VITALS: BP 120/63
[2016-11-02] MEDS: PIPERACILLIN/TAZOBACTAM 2.25 GM in IV NORMAL SALINE 50ML 50 ML IV SCH ×3 (06:05→20:45)
[2016-11-02] MEDS: LEVOTHYROXINE 75 MCG TABLET PO SCH (06:07)
[2016-11-02 07:32] VITALS: BP 131/54
--- NOTE | 2016-11-02 08:07 | PDOC ---
PULMONARY PROGRESS NOTES Subjective sob, better, has occ cough, has mild neck pain, no runny nose. Vitals Vital Signs Date Time Temp Pulse Resp B/P Pulse Ox O2 Delivery O2 Flow Rate FiO2 11/02/16 03:55 97.9 62 20 120/63 91 Room Air 97.9 Comments ros as mentioned as above, discussed w rn, other sys otherwise neg ROS: No Nausea, No Chest Pain, No Abdominal Pain, No Increase Cough General: Alert HEENT: Other Lungs: Crackles Cardiovascular: S1, S2 Abdomen: Soft, Non-tender Neuro Exam: Alert Extremities: No Edema Skin: Warm Labs Laboratory Tests Test 11/01/16 04:15 White Blood Count 5.8x10^3/uL (4.0-11.0) Red Blood Count 2.48x10^6/uL (4.30-5.70) Hemoglobin 8.0g/dL (13.0-17.5) Hematocrit 24.1% (39.0-53.0) Mean Corpuscular Volume 97fL (79-100) Mean Corpuscular Hemoglobin 32pg (25-35) Mean Corpuscular Hemoglobin Concent 33g/dL (31-37) Red Cell Distribution Width 13.6% (11.5-14.5) Platelet Count 180x10^3/uL (140-400) Neutrophils (%) (Auto) 71% (31-73) Lymphocytes (%) (Auto) 13% (24-48) Monocytes (%) (Auto) 13% (0-9) Eosinophils (%) (Auto) 3% (0-3) Basophils (%) (Auto) 0% (0-3) Neutrophils # (Auto) 4.1x10^3uL (1.8-7.7) Lymphocytes # (Auto) 0.8x10^3/uL (1.0-4.8) Monocytes # (Auto) 0.8x10^3/uL (0.0-1.1) Eosinophils # (Auto) 0.1x10^3/uL (0.0-0.7) Basophils # (Auto) 0.0x10^3/uL (0.0-0.2) Sodium Level 140mmol/L (136-145) Potassium Level 3.9mmol/L (3.5-5.1) Chloride Level 100mmol/L (98-107) Carbon Dioxide Level 31mmol/L (21-32) Anion Gap 9 (6-14) Blood Urea Nitrogen 38mg/dL (8-26) Creatinine 3.6mg/dL (0.7-1.3) Estimated GFR (Cockcroft-Gault) 16.2 Glucose Level 107mg/dL (70-99) Calcium Level 8.6mg/dL (8.5-10.1) Medications Active Scripts Medications Dose Route/Sig Days Date Category Casodex (Bicalutamide) 50 Mg Tablet 1 Tab PO DAILY16 10/14/16 Reported Tamsulosin Hcl 0.4 Mg Cap.er.24h 1 Cap PO QHS 01/27/16 Reported Procrit (Epoetin Emigdio) 4,000 Unit/1 Ml Vial 5,000 Unit IJ Q2WKS 03/20/14 Reported Saw [place] (Saw [place] Fruit) 450 Mg Capsule 900 Mg PO DAILY 03/13/14 Reported Synthroid (Levothyroxine Sodium) 50 Mcg Tablet 75 Mcg PO DAILYAC 03/13/14 Reported Norvasc (Amlodipine Besylate) 10 Mg Tablet 5 Mg PO DAILY 03/13/14 Reported Calcitriol 0.25 Mcg Capsule 0.25 Mcg PO 4 TABLETS PER WEEK 03/13/14 Reported Finasteride 5 Mg Tablet 5 Mg PO DAILY 03/13/14 Reported Furosemide 10 Mg/1 Ml Solution 10 Mg PO DAILY 03/13/14 Reported Vitamin C (Ascorbate Calcium) 500 Mg Tablet 500 Mg PO DAILY 03/13/[address] of chest reviewed, 1. No CT evidence of pulmonary embolus. 2. Large pericardial effusion. 3. Small bilateral pleural effusions. 4. Patchy consolidations in the lower lobes. Atelectasis or bronchopneumonia are considerations. 5. Cardiomegaly. Impression . 1. Acute respiratory failure, multifactorial. 2. Acute diastolic heart failure. 3. Possible pneumonia. 4. Large pericardial effusion, per cardiology. 5. End-stage renal disease. 6. 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 7. Chronic anemia. 8. Sick sinus syndrome, status post PPM Plan . 1. cont dialysis, not requiring bipap, 2. cardiology on case 3. deescated broad-spectrum antibiotics. 4. DVT and GI prophylaxis. 5. Titrate oxygen down to maintain sats above 92%. 6. pt ot discussed w rn, pt GEMA GRIFFIN MD Nov 02, 2016 08:07
[2016-11-02] MEDS: ASCORBIC ACID 500 MG TABLET PO SCH (08:48)
[2016-11-02] MEDS: AMLODIPINE BESYLATE 5 MG TABLET PO SCH (08:49)
[2016-11-02] MEDS: FINASTERIDE 5 MG TABLET PO SCH (08:49)
[2016-11-02] MEDS: HEPARIN PF for SUB-Q USE 5,000 UNIT/0.5 ML VIAL. SQ SCH ×2 (09:00→20:55)
[2016-11-02 10:42] VITALS: BP 105/52
[2016-11-02] MEDS ORDERED: MAGNESIUM SULFATE 2GM 50 ML IV PRN (12:30)
--- NOTE | 2016-11-02 12:30 | PDOC ---
SUBJECTIVE ROS ESRD doing well overall CVS: no Orthopnea, no CP RESP: no SOB, no VELA GI: no Nausea, no Vomiting : no Dysuria, no Urgency OBJECTIVE Vital Signs Vital Signs Date Time Temp Pulse Resp B/P Pulse Ox O2 Delivery O2 Flow Rate FiO2 11/02/16 10:42 97.5 63 18 105/52 91 Room Air 97.5 I & 0 Intake and Output 11/02/16 07:00 Intake Total 650 ml Output Total 150 ml Balance 500 ml Intake Oral 600 ml IV Total 50 ml Output Urine Total 150 ml # Voids 1 PHYSICAL EXAM Physical Exam GEN: Awake, Oriented x 3, In no distress EYES: Vision Unchanged, Conjunctiva Normal EN: No EN Drainage, Mucous Membranes moist NECK: no JVD, min JVP, Supple, no Thyromegaly CVS: S1S2, soft Murmur, No Gallop, No Rub,no Edema RESP: few RLL Rales, no Rhonchi,no Acc. Muscle Use; Dec AE in LLL GI: BS + ve, NO Bruit, Non Tender, Non Distended : no CVA tenderness, no Suprapubic Tenderness DIAGNOSIS/ASSESSMENT Assessment & Plan ESRD: Current fluid and E-lyte status does not necessitate emergent need for dialysis. Will re-evaluate for dialysis in the am and continue on MWF schedule. ANEMIA; Aranesp as ordered, Transfuse with next HD as needed Marginal BP: Current meds as reviewed. See orders for changes. ? IVF BOlus prn KIESHA/ BONE & MINERAL: check Phos and alter binders as needed Pericardial Eff - defer to Cardiology to manage. ? Needs tap. Discussed Plan of Care with family () at bedside COMMENT/RELEVANT DATA Meds Current Medications Medications (Trade) Dose Ordered Sig/Jaylin Start Time Stop Time Status Last Admin Dose Admin Acetaminophen (Tylenol) 650 mg PRN Q6HRS PRN 10/30/16 14:15 10/31/16 17:40 650 MG Albuterol Sulfate (Ventolin Neb Soln) 2.5 mg PRN Q2HR PRN 10/30/16 14:00 Amlodipine Besylate (Norvasc) 5 mg DAILY 10/31/16 09:00 11/02/16 08:49 5 MG Ascorbic Acid (Vitamin C) 500 mg DAILY 10/31/16 09:00 11/02/16 08:48 500 MG Bicalutamide (Casodex) 50 mg DAILY16 10/30/16 16:00 11/01/16 16:00 50 MG Darbepoetin Emigdio (Aranesp) 60 mcg Th 10/30/16 21:00 10/30/16 22:59 60 MCG Famotidine (Pepcid) 20 mg Q48H 10/30/16 21:00 11/01/16 22:12 20 MG Finasteride (Proscar) 5 mg DAILY 10/31/16 09:00 11/02/16 08:49 5 MG Furosemide (Lasix) 10 mg DAILY 10/31/16 09:00 10/31/16 13:22 DC 10/31/16 10:29 10 MG Heparin Sodium (Porcine) 5000 unit 5,000 unit Q12HR 10/30/16 21:00 11/02/16 09:00 5,000 UNIT Info (Do NOT chart on this entry -- for MONITORING) 1 each PRN DAILY PRN 10/30/16 02:45 11/01/16 02:44 DC Info (PHARMACY MONITORING -- do not chart) 1 each PRN DAILY PRN 10/31/16 07:00 Info 1 each 1 each PRN DAILY PRN 10/30/16 16:45 UNV Iohexol (Omnipaque 300 Mg/ml) 75 ml 1X ONCE 10/30/16 03:00 10/30/16 03:01 DC 10/30/16 03:03 75 ML Levothyroxine Sodium (Synthroid) 75 mcg DAILY07 10/31/16 07:00 11/02/16 06:07 75 MCG Non-Formulary Medication 900 mg DAILY 10/31/16 09:00 UNV Ondansetron HCl (Zofran) 4 mg PRN Q6HRS PRN 10/30/16 14:15 Piperacillin Sod/ Tazobactam Sod (Zosyn Per Pharmacy) 1 each PRN DAILY PRN 10/30/16 14:00 Piperacillin Sod/ Tazobactam Sod/ Sodium Chloride (Zosyn/Iv Sodium Chloride 0.9% 50ml) 50 ml @ 100 mls/hr Q6HRS 10/31/16 18:00 10/31/16 18:00 DC Sodium Chloride (Iv Sodium Chloride 0.9% 1000ml Bag) 1,000 ml @ 1,000 mls/hr Q1H PRN 10/31/16 06:51 10/31/16 12:50 DC Tamsulosin HCl (Flomax) 0.4 mg QHS 10/30/16 21:00 11/01/16 22:12 0.4 MG Vancomycin HCl (Vanco Per Pharmacy) 1 each PRN DAILY PRN 10/30/16 14:00 10/31/16 18:31 DC 10/31/16 13:02 1 EACH Vancomycin HCl 1 each 1 each 1X ONCE 10/31/16 20:00 10/31/16 20:00 DC Vancomycin HCl/ Sodium Chloride (Iv Sodium Chloride 0.9% 500ml Bag) 500 ml @ 250 mls/hr 1X ONCE 10/30/16 15:00 10/30/16 16:59 DC 10/30/16 15:00 250 MLS/HR CLARENCE MAYERS MD Nov 02, 2016 12:30
--- NOTE | 2016-11-02 12:44 | PDOC ---
PROGRESS NOTES Chief Complaint Chief Complaint 1 .syncope, recurrent, 2/2 cardiac dz likely 2. pericardial effusion, small to moderate 3. bl lung some infiltrate with possible pna 4. acute resp failure with fluid overloaded 5. ESRD on HD mwf 6. anemia , chronic 7. 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 PPM, recently changed History of Present Illness History of Present Illness sob much better, on RA asleep did not awaken family members at bedside Gets HD aware of pericardial effusion CAn get soa at times Pt recs SNU vs HH or HOme Family wants only HH PLAn: Keep overnight SW for hH aury HD per renal] POssibly dc aury to HH if all consults ok and no acute issues overnight Vitals Vitals Vital Signs Date Time Temp Pulse Resp B/P Pulse Ox O2 Delivery O2 Flow Rate FiO2 11/02/16 10:42 97.5 63 18 105/52 91 Room Air 97.5 Physical Exam General: Oriented X3, Cooperative, No acute distress, Other (drowsy) Heart: Regular rate (atrial paced), Normal S1, Normal S2, Other (3/6 systolic murmur to LLS border; S4) Lungs: Crackles Abdomen: Soft, No tenderness Extremities: No cyanosis, Other (trace LE edema) Skin: No breakdown, No significant lesion Review of Systems Review of Systems soa, rest ok Assessment and Plan Assessmemt and Plan Problems Medical Problems: (1) Pericardial effusion Status: Acute (2) Syncope Status: Acute Problems: Comment Review of Relevant I have reviewed the following items edilberto (where applicable) has been applied. Labs Laboratory Tests Test 11/01/16 04:15 White Blood Count 5.8x10^3/uL (4.0-11.0) Red Blood Count 2.48x10^6/uL (4.30-5.70) Hemoglobin 8.0g/dL (13.0-17.5) Hematocrit 24.1% (39.0-53.0) Mean Corpuscular Volume 97fL (79-100) Mean Corpuscular Hemoglobin 32pg (25-35) Mean Corpuscular Hemoglobin Concent 33g/dL (31-37) Red Cell Distribution Width 13.6% (11.5-14.5) Platelet Count 180x10^3/uL (140-400) Neutrophils (%) (Auto) 71% (31-73) Lymphocytes (%) (Auto) 13% (24-48) Monocytes (%) (Auto) 13% (0-9) Eosinophils (%) (Auto) 3% (0-3) Basophils (%) (Auto) 0% (0-3) Neutrophils # (Auto) 4.1x10^3uL (1.8-7.7) Lymphocytes # (Auto) 0.8x10^3/uL (1.0-4.8) Monocytes # (Auto) 0.8x10^3/uL (0.0-1.1) Eosinophils # (Auto) 0.1x10^3/uL (0.0-0.7) Basophils # (Auto) 0.0x10^3/uL (0.0-0.2) Sodium Level 140mmol/L (136-145) Potassium Level 3.9mmol/L (3.5-5.1) Chloride Level 100mmol/L (98-107) Carbon Dioxide Level 31mmol/L (21-32) Anion Gap 9 (6-14) Blood Urea Nitrogen 38mg/dL (8-26) Creatinine 3.6mg/dL (0.7-1.3) Estimated GFR (Cockcroft-Gault) 16.2 Glucose Level 107mg/dL (70-99) Calcium Level 8.6mg/dL (8.5-10.1) Medications Current Medications Iohexol (Omnipaque 300 Mg/ml) 75 ml 1X ONCE IV Last administered on 10/30/16 03:03; Start 10/30/16 at 03:00; Stop 10/30/16 at 03:01; Status DC Info (Do NOT chart on this entry -- for MONITORING) 1 each PRN DAILY PRN MC SEE COMMENTS; Start 10/30/16 at 02:45; Stop 11/01/16 at 02:44; Status DC Acetaminophen (Tylenol) 650 mg PRN Q4HRS PRN PO FEVER; Start 10/30/16 at 05:00 ; Stop 10/30/16 at 14:17; Status DC Darbepoetin Emigdio (Aranesp) 60 mcg Th SQ Last administered on 10/30/16t 22:59; Start 10/30/16 at 21:00 Piperacillin Sod/ Tazobactam Sod (Zosyn Per Pharmacy) 1 each PRN DAILY PRN MC SEE COMMENTS; Start 10/30/16 at 14:00 Vancomycin HCl (Vanco Per Pharmacy) 1 each PRN DAILY PRN MC SEE COMMENTS Last administered on 10/31/16 13:02; Start 10/30/16 at 14:00; Stop 10/31/16 at 18:31 ; Status DC Albuterol Sulfate (Ventolin Neb Soln) 2.5 mg PRN Q2HR PRN NEB DYSPNEA; Start at 14:00 Famotidine (Pepcid) 20 mg Q48H PO Last administered on 11/01/16 22:12; Start 10/30/16 at 21:00 Amlodipine Besylate (Norvasc) 5 mg DAILY PO Last administered on 11/02/16 08: 49; Start 10/31/16 at 09:00 Bicalutamide (Casodex) 50 mg DAILY16 PO Last administered on 11/01/16 16:00; Start 10/30/16 at 16:00 Finasteride (Proscar) 5 mg DAILY PO Last administered on 11/02/16 08:49; Start 10/31/16 at 09:00 Levothyroxine Sodium (Synthroid) 75 mcg DAILY07 PO Last administered on 06:07; Start 10/31/16 at 07:00 Tamsulosin HCl (Flomax) 0.4 mg QHS PO Last administered on 11/01/16 22:12; Start 10/30/16 at 21:00 Ascorbic Acid (Vitamin C) 500 mg DAILY PO Last administered on 11/02/16 08:48 ; Start 10/31/16 at 09:00 Non-Formulary Medication 5,000 unit Q2WKS IJ ; Start 11/13/16 at 09:00; Stop 11/13 at 09:00; Status DC Furosemide (Lasix) 10 mg DAILY PO Last administered on 10/31/16 10:29; Start 10/31/16 at 09:00; Stop 10/31/16 at 13:22; Status DC Non-Formulary Medication 900 mg 900 mg DAILY PO ; Start 10/31/16 at 09:00; Status UNV Piperacillin Sod/ Tazobactam Sod/ Sodium Chloride (Zosyn/Iv Sodium Chloride 0.9 % 50ml) 50 ml @ 100 mls/hr Q8HRS IV Last administered on 11/02/16 06:05; Start 10/30/16 at 14:30 Acetaminophen (Tylenol) 650 mg PRN Q6HRS PRN PO MILD PAIN / TEMP Last administered on 10/31/16 17:40; Start 10/30/16 at 14:15 Ondansetron HCl (Zofran) 4 mg PRN Q6HRS PRN IV NAUSEA/VOMITING; Start 10/30/16 at 14:15 Heparin Sodium (Porcine) 5000 unit 5,000 unit Q12HR SQ Last administered on 09:00; Start 10/30/16 at 21:00 Vancomycin HCl/ Sodium Chloride (Iv Sodium Chloride 0.9% 500ml Bag) 500 ml @ 250 mls/hr 1X ONCE IV Last administered on 10/30/16 15:00; Start 10/30/16 at 15:00; Stop 10/30/16 at 16:59; Status DC Info (PHARMACY MONITORING -- do not chart) 1 each PRN DAILY PRN MC SEE COMMENTS ; Start 10/30/16 at 14:45; Status Cancel Info (PHARMACY MONITORING -- do not chart) 1 each PRN DAILY PRN MC SEE COMMENTS ; Start 10/30/16 at 16:45; Status UNV Info 1 each 1 each PRN DAILY PRN MC SEE COMMENTS; Start 10/30/16 at 16:45; Status UNV Sodium Chloride (Iv Sodium Chloride 0.9% 1000ml Bag) 1,000 ml @ 1,000 mls/hr Q1H PRN IV hypotension; Start 10/31/16 at 06:51; Stop 10/31/16 at 12:50; Status DC Info (PHARMACY MONITORING -- do not chart) 1 each PRN DAILY PRN MC SEE COMMENTS ; Start 10/31/16 at 07:00; Status UNV Info (PHARMACY MONITORING -- do not chart) 1 each PRN DAILY PRN MC SEE COMMENTS ; Start 10/31/16 at 07:00 Vancomycin HCl 1 each 1 each 1X ONCE MC ; Start 10/31/16 at 20:00; Stop at 20:00; Status DC Piperacillin Sod/ Tazobactam Sod 2.25 gm/Sodium Chloride 50 ml @ 100 mls/hr Q6HRS IV ; Start 10/31/16 at 18:00; Stop 10/31/16 at 18:00; Status DC Magnesium Sulfate/ Dextrose (Magnesium Sulfate PREMIX 2GM) 50 ml @ 25 mls/hr PRN DAILY PRN IV for Mag < 1.7 on am labs; Start 11/02/16 at 12:30 Active Scripts Active Reported Casodex (Bicalutamide) 50 Mg Tablet 1 Tab PO DAILY16 Tamsulosin Hcl 0.4 Mg Cap.er.24h 1 Cap PO QHS Procrit (Epoetin Emigdio) 4,000 Unit/1 Ml Vial 5,000 Unit IJ Q2WKS [place] ([place] Fruit) 450 Mg Capsule 900 Mg PO DAILY Synthroid (Levothyroxine Sodium) 50 Mcg Tablet 75 Mcg PO DAILYAC Norvasc (Amlodipine Besylate) 10 Mg Tablet 5 Mg PO DAILY Calcitriol 0.25 Mcg Capsule 0.25 Mcg PO 4 TABLETS PER WEEK Finasteride 5 Mg Tablet 5 Mg PO DAILY Furosemide 10 Mg/1 Ml Solution 10 Mg PO DAILY Vitamin C (Ascorbate Calcium) 500 Mg Tablet 500 Mg PO DAILY Vitals/I & O Vital Sign - Last 24 Hours 11/01/16 11/01/16 11/01/16 11/01/16 15:45 19:42 19:51 23:27 Temp 97.7 98.0 97.6 97.7 98.0 97.6 Pulse 60 60 60 Resp B/P 99/50 115/56 123/59 Pulse Ox 91 91 91 O2 Delivery Room Air Room Air Room Air Room Air 11/02/16 11/02/16 11/02/16 11/02/16 03:55 07:32 08:49 10:42 Temp 97.9 97.5 97.5 97.9 97.5 97.5 Pulse 62 61 61 63 Resp 18 B/P 120/63 131/54 131/54 105/52 Pulse Ox 91 91 91 O2 Delivery Room Air Room Air Room Air Intake and Output 11/01/16 11/01/16 11/02/16 15:00 23:00 07:00 Intake Total 480 ml 170 ml Output Total 150 ml Balance 480 ml 170 ml -150 ml ARMINDA PADILLA MD Nov 02, 2016 12:44
[2016-11-02 14:45] VITALS: BP 134/52
[2016-11-02] MEDS: BICALUTAMIDE 50 MG TABLET PO SCH (16:48)
[2016-11-02 19:00] VITALS: BP 114/63
[2016-11-02] MEDS: TAMSULOSIN 0.4 MG CAP.ER.24H. PO SCH (20:45)
[2016-11-02 22:56] VITALS: BP 118/63
[2016-11-03 03:00] VITALS: BP 117/44
[2016-11-03 05:27] LABS: ALBUMIN 2.3 g/dL (3.4-5.0); CALCIUM 8.9 mg/dL (8.5-10.1); CREATININE 7.3 mg/dL (0.7-1.3); GFR 7.1; PHOSPHORUS 3.8 mg/dL (2.6-4.7); POTASSIUM 4.2 mmol/L (3.5-5.1)
[2016-11-03] MEDS: PIPERACILLIN/TAZOBACTAM 2.25 GM in IV NORMAL SALINE 50ML 50 ML IV SCH (06:13)
[2016-11-03 07:00] VITALS: BP 119/51
[2016-11-03] MEDS ORDERED: IV NORMAL SALINE 1000ML BAG 1,000 ML IV PRN (08:49)
[2016-11-03] MEDS: HEPARIN PF for SUB-Q USE 5,000 UNIT/0.5 ML VIAL. SQ SCH ×2 (09:00→21:17)
[2016-11-03] MEDS ORDERED: DIALYSIS PATIENT. MC PRN ×2 (09:00)
--- NOTE | 2016-11-03 09:33 | PDOC ---
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 Vitals Vital Signs Vital Signs Date Time Temp Pulse Resp B/P Pulse Ox O2 Delivery O2 Flow Rate FiO2 11/03/16 07:00 98.1 61 16 119/51 89 Room Air 98.1 11/01/16 00:00 2.0 Labs Last Labs Laboratory Tests Test 11/03/16 04:10 Hemoglobin 7.7g/dL (13.0-17.5) Sodium Level 141mmol/L (136-145) Potassium Level 4.2mmol/L (3.5-5.1) Chloride Level 102mmol/L (98-107) Carbon Dioxide Level 28mmol/L (21-32) Anion Gap 11 (6-14) Blood Urea Nitrogen 83mg/dL (8-26) Creatinine 7.3mg/dL (0.7-1.3) Estimated GFR (Cockcroft-Gault) 7.1 Glucose Level 127mg/dL (70-99) Calcium Level 8.9mg/dL (8.5-10.1) Phosphorus Level 3.8mg/dL (2.6-4.7) Magnesium Level 1.9mg/dL (1.8-2.4) Albumin 2.3g/dL (3.4-5.0) Laboratory Tests Test 11/03/16 04:10 Hemoglobin 7.7g/dL (13.0-17.5) Sodium Level 141mmol/L (136-145) Potassium Level 4.2mmol/L (3.5-5.1) Chloride Level 102mmol/L (98-107) Carbon Dioxide Level 28mmol/L (21-32) Anion Gap 11 (6-14) Blood Urea Nitrogen 83mg/dL (8-26) Creatinine 7.3mg/dL (0.7-1.3) Estimated GFR (Cockcroft-Gault) 7.1 Glucose Level 127mg/dL (70-99) Calcium Level 8.9mg/dL (8.5-10.1) Phosphorus Level 3.8mg/dL (2.6-4.7) Magnesium Level 1.9mg/dL (1.8-2.4) Albumin 2.3g/dL (3.4-5.0) Assessment Assessment Problems Medical Problems: (1) Pericardial effusion Status: Acute (2) Syncope Status: Acute Problems: Plan Plan of Care Problems Medical Problems: (1) Pericardial effusion Status: Acute (2) Syncope Status: Acute CLARENCE MAYERS MD Nov 03, 2016 09:33
--- NOTE | 2016-11-03 14:00 | PDOC ---
PROGRESS NOTES Chief Complaint Chief Complaint 1 .syncope, recurrent, 2/2 cardiac dz likely 2. pericardial effusion, small to moderate 3. bl lung some infiltrate with possible pna 4. acute resp failure with fluid overloaded 5. ESRD on HD mwf 6. anemia , chronic 7. 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 PPM, recently changed History of Present Illness History of Present Illness sob much better, breathing easily awake and eating at bedside s/p HD today, he feels tired now aware of pericardial effusion no dyspnea Family wants HH DC soon HH Vitals Vitals Vital Signs Date Time Temp Pulse Resp B/P Pulse Ox O2 Delivery O2 Flow Rate FiO2 11/03/16 07:00 98.1 61 16 119/51 89 Room Air 98.1 Physical Exam General: Oriented X3, Cooperative, No acute distress, Other (drowsy) Heart: Regular rate (atrial paced), Normal S1, Normal S2, Other (3/6 systolic murmur to LLS border; S4) Lungs: Crackles Abdomen: Soft, No tenderness Extremities: No cyanosis, Other (trace LE edema) Skin: No breakdown, No significant lesion Labs LABS Laboratory Tests Test 11/03/16 04:10 11/03/16 12:19 Hemoglobin 7.7g/dL (13.0-17.5) Sodium Level 141mmol/L (136-145) Potassium Level 4.2mmol/L (3.5-5.1) Chloride Level 102mmol/L (98-107) Carbon Dioxide Level 28mmol/L (21-32) Anion Gap 11 (6-14) Blood Urea Nitrogen 83mg/dL (8-26) Creatinine 7.3mg/dL (0.7-1.3) Estimated GFR (Cockcroft-Gault) 7.1 Glucose Level 127mg/dL (70-99) Calcium Level 8.9mg/dL (8.5-10.1) Phosphorus Level 3.8mg/dL (2.6-4.7) Magnesium Level 1.9mg/dL (1.8-2.4) Albumin 2.3g/dL (3.4-5.0) Glucose (Fingerstick) 106mg/dL (70-99) Assessment and Plan Assessmemt and Plan Dc tomorrow Problems Medical Problems: (1) Pericardial effusion Status: Acute (2) Syncope Status: Acute Problems: Comment Review of Relevant I have reviewed the following items edilberto (where applicable) has been applied. Labs Laboratory Tests Test 11/03/16 04:10 11/03/16 12:19 Hemoglobin 7.7g/dL (13.0-17.5) Sodium Level 141mmol/L (136-145) Potassium Level 4.2mmol/L (3.5-5.1) Chloride Level 102mmol/L (98-107) Carbon Dioxide Level 28mmol/L (21-32) Anion Gap 11 (6-14) Blood Urea Nitrogen 83mg/dL (8-26) Creatinine 7.3mg/dL (0.7-1.3) Estimated GFR (Cockcroft-Gault) 7.1 Glucose Level 127mg/dL (70-99) Calcium Level 8.9mg/dL (8.5-10.1) Phosphorus Level 3.8mg/dL (2.6-4.7) Magnesium Level 1.9mg/dL (1.8-2.4) Albumin 2.3g/dL (3.4-5.0) Glucose (Fingerstick) 106mg/dL (70-99) Laboratory Tests Test 11/03/16 04:10 11/03/16 12:19 Hemoglobin 7.7g/dL (13.0-17.5) Sodium Level 141mmol/L (136-145) Potassium Level 4.2mmol/L (3.5-5.1) Chloride Level 102mmol/L (98-107) Carbon Dioxide Level 28mmol/L (21-32) Anion Gap 11 (6-14) Blood Urea Nitrogen 83mg/dL (8-26) Creatinine 7.3mg/dL (0.7-1.3) Estimated GFR (Cockcroft-Gault) 7.1 Glucose Level 127mg/dL (70-99) Calcium Level 8.9mg/dL (8.5-10.1) Phosphorus Level 3.8mg/dL (2.6-4.7) Magnesium Level 1.9mg/dL (1.8-2.4) Albumin 2.3g/dL (3.4-5.0) Glucose (Fingerstick) 106mg/dL (70-99) Medications Current Medications Iohexol (Omnipaque 300 Mg/ml) 75 ml 1X ONCE IV Last administered on 10/30/16 03:03; Start 10/30/16 at 03:00; Stop 10/30/16 at 03:01; Status DC Info (Do NOT chart on this entry -- for MONITORING) 1 each PRN DAILY PRN MC SEE COMMENTS; Start 10/30/16 at 02:45; Stop 11/01/16 at 02:44; Status DC Acetaminophen (Tylenol) 650 mg PRN Q4HRS PRN PO FEVER; Start 10/30/16 at 05:00 ; Stop 10/30/16 at 14:17; Status DC Darbepoetin Emigdio (Aranesp) 60 mcg Th SQ Last administered on 10/30/16 22:59; Start 10/30/16 at 21:00 Piperacillin Sod/ Tazobactam Sod (Zosyn Per Pharmacy) 1 each PRN DAILY PRN MC SEE COMMENTS; Start 10/30/16 at 14:00 Vancomycin HCl (Vanco Per Pharmacy) 1 each PRN DAILY PRN MC SEE COMMENTS Last administered on 10/31/16 13:02; Start 10/30/16 at 14:00; Stop 10/31/16 at 18:31 ; Status DC Albuterol Sulfate (Ventolin Neb Soln) 2.5 mg PRN Q2HR PRN NEB DYSPNEA; Start at 14:00 Famotidine (Pepcid) 20 mg Q48H PO Last administered on 11/01/16 22:12; Start 10/30/16 at 21:00 Amlodipine Besylate (Norvasc) 5 mg DAILY PO Last administered on 11/02/16 08: 49; Start 10/31/16 at 09:00 Bicalutamide (Casodex) 50 mg DAILY16 PO Last administered on 11/02/16 16:48; Start 10/30/16 at 16:00 Finasteride (Proscar) 5 mg DAILY PO Last administered on 11/02/16 08:49; Start 10/31/16 at 09:00 Levothyroxine Sodium (Synthroid) 75 mcg DAILY07 PO Last administered on 06:07; Start 10/31/16 at 07:00 Tamsulosin HCl (Flomax) 0.4 mg QHS PO Last administered on 11/02/16 20:45; Start 10/30/16 at 21:00 Ascorbic Acid (Vitamin C) 500 mg DAILY PO Last administered on 11/02/16 08:48 ; Start 10/31/16 at 09:00 Non-Formulary Medication 5,000 unit Q2WKS IJ ; Start 11/13/16 at 09:00; Stop 11/13 at 09:00; Status DC Furosemide (Lasix) 10 mg DAILY PO Last administered on 10/31/16 10:29; Start 10/31/16 at 09:00; Stop 10/31/16 at 13:22; Status DC Non-Formulary Medication 900 mg 900 mg DAILY PO ; Start 10/31/16 at 09:00; Status UNV Piperacillin Sod/ Tazobactam Sod/ Sodium Chloride (Zosyn/Iv Sodium Chloride 0.9 % 50ml) 50 ml @ 100 mls/hr Q8HRS IV Last administered on 11/03/16 06:13; Start 10/30/16 at 14:30 Acetaminophen (Tylenol) 650 mg PRN Q6HRS PRN PO MILD PAIN / TEMP Last administered on 10/31/16 17:40; Start 10/30/16 at 14:15 Ondansetron HCl (Zofran) 4 mg PRN Q6HRS PRN IV NAUSEA/VOMITING; Start 10/30/16 at 14:15 Heparin Sodium (Porcine) 5000 unit 5,000 unit Q12HR SQ Last administered on 20:55; Start 10/30/16 at 21:00 Vancomycin HCl/ Sodium Chloride (Iv Sodium Chloride 0.9% 500ml Bag) 500 ml @ 250 mls/hr 1X ONCE IV Last administered on 10/30/16 15:00; Start 10/30/16 at 15:00; Stop 10/30/16 at 16:59; Status DC Info (PHARMACY MONITORING -- do not chart) 1 each PRN DAILY PRN MC SEE COMMENTS ; Start 10/30/16 at 14:45; Status Cancel Info (PHARMACY MONITORING -- do not chart) 1 each PRN DAILY PRN MC SEE COMMENTS ; Start 10/30/16 at 16:45; Status UNV Info 1 each 1 each PRN DAILY PRN MC SEE COMMENTS; Start 10/30/16 at 16:45; Status UNV Sodium Chloride (Iv Sodium Chloride 0.9% 1000ml Bag) 1,000 ml @ 1,000 mls/hr Q1H PRN IV hypotension; Start 10/31/16 at 06:51; Stop 10/31/16 at 12:50; Status DC Info (PHARMACY MONITORING -- do not chart) 1 each PRN DAILY PRN MC SEE COMMENTS ; Start 10/31/16 at 07:00; Status UNV Info (PHARMACY MONITORING -- do not chart) 1 each PRN DAILY PRN MC SEE COMMENTS ; Start 10/31/16 at 07:00 Vancomycin HCl 1 each 1 each 1X ONCE MC ; Start 10/31/16 at 20:00; Stop at 20:00; Status DC Piperacillin Sod/ Tazobactam Sod 2.25 gm/Sodium Chloride 50 ml @ 100 mls/hr Q6HRS IV ; Start 10/31/16 at 18:00; Stop 10/31/16 at 18:00; Status DC Magnesium Sulfate/ Dextrose 50 ml @ 25 mls/hr PRN DAILY PRN IV for Mag < 1.7 on am labs; Start 11/02/16 at 12:30 Sodium Chloride (Iv Sodium Chloride 0.9% 1000ml Bag) 1,000 ml @ 1,000 mls/hr Q1H PRN IV hypotension; Start 11/03/16 at 08:49; Stop 11/03/16 at 14:48 Info (PHARMACY MONITORING -- do not chart) 1 each PRN DAILY PRN MC SEE COMMENTS ; Start 11/03/16 at 09:00; Status UNV Info (PHARMACY MONITORING -- do not chart) 1 each PRN DAILY PRN MC SEE COMMENTS ; Start 11/03/16 at 09:00; Status UNV Active Scripts Active Reported Casodex (Bicalutamide) 50 Mg Tablet 1 Tab PO DAILY16 Tamsulosin Hcl 0.4 Mg Cap.er.24h 1 Cap PO QHS Procrit (Epoetin Emigdio) 4,000 Unit/1 Ml Vial 5,000 Unit IJ Q2WKS [place] (S[place] Fruit) 450 Mg Capsule 900 Mg PO DAILY Synthroid (Levothyroxine Sodium) 50 Mcg Tablet 75 Mcg PO DAILYAC Norvasc (Amlodipine Besylate) 10 Mg Tablet 5 Mg PO DAILY Calcitriol 0.25 Mcg Capsule 0.25 Mcg PO 4 TABLETS PER WEEK Finasteride 5 Mg Tablet 5 Mg PO DAILY Furosemide 10 Mg/1 Ml Solution 10 Mg PO DAILY Vitamin C (Ascorbate Calcium) 500 Mg Tablet 500 Mg PO DAILY Vitals/I & O Vital Sign - Last 24 Hours 11/02/16 11/02/16 11/02/16 11/02/16 14:45 19:00 20:00 22:56 Temp 96.4 98.1 97.7 96.4 98.1 97.7 Pulse 68 72 64 Resp 18 22 22 B/P 134/52 114/63 118/63 Pulse Ox 93 91 91 O2 Delivery Room Air Room Air Room Air Room Air 11/03/16 11/03/16 03:00 07:00 Temp 97.7 98.1 97.7 98.1 Pulse 61 61 Resp 22 16 B/P 117/44 119/51 Pulse Ox 91 89 O2 Delivery Room Air Room Air Intake and Output 11/02/16 11/02/16 11/03/16 15:00 23:00 07:00 Intake Total 630 ml 0 ml 0 ml Output Total 100 ml Balance 630 ml 0 ml -100 ml GEN DOYLE MD Nov 03, 2016 14:00
[2016-11-03 15:17] VITALS: BP 128/53
[2016-11-03] MEDS: BICALUTAMIDE 50 MG TABLET PO SCH (16:00)
[2016-11-03] MEDS: LEVOTHYROXINE 75 MCG TABLET PO SCH (16:50)
[2016-11-03] MEDS: FINASTERIDE 5 MG TABLET PO SCH (16:50)
[2016-11-03] MEDS: ASCORBIC ACID 500 MG TABLET PO SCH (16:50)
[2016-11-03] MEDS: AMLODIPINE BESYLATE 5 MG TABLET PO SCH (16:52)
[2016-11-03 19:00] VITALS: BP 129/57
--- NOTE | 2016-11-03 19:07 | PDOC ---
PULMONARY PROGRESS NOTES Subjective OFF BIPAP NOT MORE SOA Vitals Vital Signs Date Time Temp Pulse Resp B/P Pulse Ox O2 Delivery O2 Flow Rate FiO2 11/03/16 16:52 60 128/53 11/03/16 15:17 98.4 18 94 Room Air 98.4 Comments ros as mentioned as above, discussed w rn, other sys otherwise neg ROS: No Nausea, No Chest Pain, No Abdominal Pain, No Increase Cough General: Alert HEENT: Other Lungs: Crackles Cardiovascular: S1, S2 Abdomen: Soft, Non-tender Neuro Exam: Alert Extremities: No Edema Skin: Warm Labs Laboratory Tests Test 11/03/16 04:10 11/03/16 12:19 Hemoglobin 7.7g/dL (13.0-17.5) Sodium Level 141mmol/L (136-145) Potassium Level 4.2mmol/L (3.5-5.1) Chloride Level 102mmol/L (98-107) Carbon Dioxide Level 28mmol/L (21-32) Anion Gap 11 (6-14) Blood Urea Nitrogen 83mg/dL (8-26) Creatinine 7.3mg/dL (0.7-1.3) Estimated GFR (Cockcroft-Gault) 7.1 Glucose Level 127mg/dL (70-99) Calcium Level 8.9mg/dL (8.5-10.1) Phosphorus Level 3.8mg/dL (2.6-4.7) Magnesium Level 1.9mg/dL (1.8-2.4) Albumin 2.3g/dL (3.4-5.0) Glucose (Fingerstick) 106mg/dL (70-99) Laboratory Tests Test 11/03/16 04:10 11/03/16 12:19 Hemoglobin 7.7g/dL (13.0-17.5) Sodium Level 141mmol/L (136-145) Potassium Level 4.2mmol/L (3.5-5.1) Chloride Level 102mmol/L (98-107) Carbon Dioxide Level 28mmol/L (21-32) Anion Gap 11 (6-14) Blood Urea Nitrogen 83mg/dL (8-26) Creatinine 7.3mg/dL (0.7-1.3) Estimated GFR (Cockcroft-Gault) 7.1 Glucose Level 127mg/dL (70-99) Calcium Level 8.9mg/dL (8.5-10.1) Phosphorus Level 3.8mg/dL (2.6-4.7) Magnesium Level 1.9mg/dL (1.8-2.4) Albumin 2.3g/dL (3.4-5.0) Glucose (Fingerstick) 106mg/dL (70-99) Medications Active Scripts Medications Dose Route/Sig Days Date Category Casodex (Bicalutamide) 50 Mg Tablet 1 Tab PO DAILY16 10/14/16 Reported Tamsulosin Hcl 0.4 Mg Cap.er.24h 1 Cap PO QHS 01/27/16 Reported Procrit (Epoetin Emigdio) 4,000 Unit/1 Ml Vial 5,000 Unit IJ Q2WKS 03/20/14 Reported [place] (S[place] Fruit) 450 Mg Capsule 900 Mg PO DAILY 03/13/14 Reported Synthroid (Levothyroxine Sodium) 50 Mcg Tablet 75 Mcg PO DAILYAC 03/13/14 Reported Norvasc (Amlodipine Besylate) 10 Mg Tablet 5 Mg PO DAILY 03/13/14 Reported Calcitriol 0.25 Mcg Capsule 0.25 Mcg PO 4 TABLETS PER WEEK 03/13/14 Reported Finasteride 5 Mg Tablet 5 Mg PO DAILY 03/13/14 Reported Furosemide 10 Mg/1 Ml Solution 10 Mg PO DAILY 03/13/14 Reported Vitamin C (Ascorbate Calcium) 500 Mg Tablet 500 Mg PO DAILY 03/13/[address] of chest reviewed, 1. No CT evidence of pulmonary embolus. 2. Large pericardial effusion. 3. Small bilateral pleural effusions. 4. Patchy consolidations in the lower lobes. Atelectasis or bronchopneumonia are considerations. 5. Cardiomegaly. Impression . 1. Acute respiratory failure, multifactorial. 2. Acute diastolic heart failure. 3. Possible pneumonia. 4. Large pericardial effusion, per cardiology. 5. End-stage renal disease. 6. 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 7. Chronic anemia. 8. Sick sinus syndrome, status post PPM Plan . HOME IN AM OR TRANSFER 1. cont dialysis, not requiring bipap, 2. cardiology on case 3. D/C antibx 4. DVT and GI prophylaxis. 5. Titrate oxygen down to maintain sats above 92%. JESSE MILIAN MD Nov 03, 2016 19:07
[2016-11-03] MEDS: FAMOTIDINE 20 MG TABLET. PO SCH (21:11)
[2016-11-03] MEDS: TAMSULOSIN 0.4 MG CAP.ER.24H. PO SCH (21:11)
[2016-11-03 23:00] VITALS: BP 121/56
[2016-11-04 03:00] VITALS: BP 116/59
[2016-11-04] MEDS: LEVOTHYROXINE 75 MCG TABLET PO SCH (06:03)
[2016-11-04 06:18] LABS: ALBUMIN 2.4 g/dL (3.4-5.0); CREATININE 4.4 mg/dL (0.7-1.3); GFR 12.8; PHOSPHORUS 3.9 mg/dL (2.6-4.7); POTASSIUM 4.1 mmol/L (3.5-5.1)
[2016-11-04 07:00] VITALS: BP 135/41
[2016-11-04] MEDS: AMLODIPINE BESYLATE 5 MG TABLET PO SCH (09:00)
--- NOTE | 2016-11-04 09:27 | PDOC ---
PULMONARY PROGRESS NOTES Subjective OFF BIPAP NO SOA Vitals Vital Signs Date Time Temp Pulse Resp B/P Pulse Ox O2 Delivery O2 Flow Rate FiO2 11/04/16 08:00 Room Air 11/04/16 07:00 98.7 65 16 135/41 93 98.7 Comments ros as mentioned as above, discussed w rn, other sys otherwise neg ROS: No Nausea, No Chest Pain, No Abdominal Pain, No Increase Cough General: Alert HEENT: Other Lungs: Other (decrease bs) Cardiovascular: S1, S2 Abdomen: Soft, Non-tender Neuro Exam: Alert Extremities: No Edema Skin: Warm Labs Laboratory Tests Test 11/03/16 04:10 11/03/16 12:19 11/04/16 04:00 Hemoglobin 7.7g/dL (13.0-17.5) Sodium Level 141mmol/L (136-145) 143mmol/L (136-145) Potassium Level 4.2mmol/L (3.5-5.1) 4.1mmol/L (3.5-5.1) Chloride Level 102mmol/L (98-107) 103mmol/L (98-107) Carbon Dioxide Level 28mmol/L (21-32) 29mmol/L (21-32) Anion Gap 11 (6-14) 11 (6-14) Blood Urea Nitrogen 83mg/dL (8-26) 40mg/dL (8-26) Creatinine 7.3mg/dL (0.7-1.3) 4.4mg/dL (0.7-1.3) Estimated GFR (Cockcroft-Gault) 7.1 12.8 Glucose Level 127mg/dL (70-99) 105mg/dL (70-99) Calcium Level 8.9mg/dL (8.5-10.1) 9.0mg/dL (8.5-10.1) Phosphorus Level 3.8mg/dL (2.6-4.7) 3.9mg/dL (2.6-4.7) Magnesium Level 1.9mg/dL (1.8-2.4) 1.8mg/dL (1.8-2.4) Albumin 2.3g/dL (3.4-5.0) 2.4g/dL (3.4-5.0) Glucose (Fingerstick) 106mg/dL (70-99) Laboratory Tests Test 11/03/16 12:19 11/04/16 04:00 Glucose (Fingerstick) 106mg/dL (70-99) Sodium Level 143mmol/L (136-145) Potassium Level 4.1mmol/L (3.5-5.1) Chloride Level 103mmol/L (98-107) Carbon Dioxide Level 29mmol/L (21-32) Anion Gap 11 (6-14) Blood Urea Nitrogen 40mg/dL (8-26) Creatinine 4.4mg/dL (0.7-1.3) Estimated GFR (Cockcroft-Gault) 12.8 Glucose Level 105mg/dL (70-99) Calcium Level 9.0mg/dL (8.5-10.1) Phosphorus Level 3.9mg/dL (2.6-4.7) Magnesium Level 1.8mg/dL (1.8-2.4) Albumin 2.4g/dL (3.4-5.0) Medications Active Scripts Medications Dose Route/Sig Days Date Category Casodex (Bicalutamide) 50 Mg Tablet 1 Tab PO DAILY16 10/14/16 Reported Tamsulosin Hcl 0.4 Mg Cap.er.24h 1 Cap PO QHS 01/27/16 Reported Procrit (Epoetin Emigdio) 4,000 Unit/1 Ml Vial 5,000 Unit IJ Q2WKS 03/20/14 Reported Saw [place] (Saw [place] Fruit) 450 Mg Capsule 900 Mg PO DAILY 03/13/14 Reported Synthroid (Levothyroxine Sodium) 50 Mcg Tablet 75 Mcg PO DAILYAC 03/13/14 Reported Norvasc (Amlodipine Besylate) 10 Mg Tablet 5 Mg PO DAILY 03/13/14 Reported Calcitriol 0.25 Mcg Capsule 0.25 Mcg PO 4 TABLETS PER WEEK 03/13/14 Reported Finasteride 5 Mg Tablet 5 Mg PO DAILY 03/13/14 Reported Furosemide 10 Mg/1 Ml Solution 10 Mg PO DAILY 03/13/14 Reported Vitamin C (Ascorbate Calcium) 500 Mg Tablet 500 Mg PO DAILY 03/13/[address] of chest reviewed, 1. No CT evidence of pulmonary embolus. 2. Large pericardial effusion. 3. Small bilateral pleural effusions. 4. Patchy consolidations in the lower lobes. Atelectasis or bronchopneumonia are considerations. 5. Cardiomegaly. Impression . 1. Acute respiratory failure, multifactorial./ improved 2. Acute diastolic heart failure. 3. Possible basal pneumonia vs atelectasis 4. Large pericardial effusion, per cardiology. 5. End-stage renal disease. 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 Chronic anemia. 8. Sick sinus syndrome, status post PPM Plan . 1. cont dialysis, not requiring bipap, 2. cardiology on case 3. antibx 4. DVT and GI prophylaxis. 5. Titrate oxygen down to maintain sats above 92%. 6. d/c plans per PCP JAVAN CASILLAS MD Nov 04, 2016 09:27
[2016-11-04 09:55] VITALS: BP 94/42
[2016-11-04] MEDS: FINASTERIDE 5 MG TABLET PO SCH (09:57)
[2016-11-04] MEDS: ASCORBIC ACID 500 MG TABLET PO SCH (09:57)
[2016-11-04] MEDS: HEPARIN PF for SUB-Q USE 5,000 UNIT/0.5 ML VIAL. SQ SCH (09:58)
[2016-11-04 11:00] VITALS: BP 118/47
[2016-11-04] MEDS ORDERED: FAMO20TA5 PO (12:41)
--- NOTE | 2016-11-04 12:46 | PDOC3 ---
Discharge Summary Visit Information Date of Admission: Oct 30, 2016 Date of Discharge: Nov 04, 2016 Admitting Diagnosis: syncope Final Diagnosis 1. Acute respiratory failure, multifactorial. 2. Acute diastolic heart failure. 3. basal atelectasis 4. Large pericardial effusion, 5. End-stage renal disease. 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 Chronic anemia. 8. Sick sinus syndrome, status post PPM 9. Gen weakness and debility 10. moderate malnutrition, POA 11. anemia of CKD, ESRD Plan Plan . JAVAN CASILLAS MD Problems Medical Problems: (1) Pericardial effusion Status: Acute (2) Syncope Status: Acute Brief Hospital Course Allergies Allergies Coded Allergies Type Severity Reaction Last Updated Verified No Known Drug Allergies 03/20/14 No Vital Signs Vital Signs Date Time Temp Pulse Resp B/P Pulse Ox O2 Delivery O2 Flow Rate FiO2 11/04/16 09:55 94/42 11/04/16 09:00 65 11/04/16 08:00 Room Air 11/04/16 07:00 98.7 16 93 98.7 Lab Results Laboratory Tests Test 11/03/16 04:10 11/03/16 12:19 11/04/16 04:00 Hemoglobin 7.7g/dL (13.0-17.5) Sodium Level 141mmol/L (136-145) 143mmol/L (136-145) Potassium Level 4.2mmol/L (3.5-5.1) 4.1mmol/L (3.5-5.1) Chloride Level 102mmol/L (98-107) 103mmol/L (98-107) Carbon Dioxide Level 28mmol/L (21-32) 29mmol/L (21-32) Anion Gap 11 (6-14) 11 (6-14) Blood Urea Nitrogen 83mg/dL (8-26) 40mg/dL (8-26) Creatinine 7.3mg/dL (0.7-1.3) 4.4mg/dL (0.7-1.3) Estimated GFR (Cockcroft-Gault) 7.1 12.8 Glucose Level 127mg/dL (70-99) 105mg/dL (70-99) Calcium Level 8.9mg/dL (8.5-10.1) 9.0mg/dL (8.5-10.1) Phosphorus Level 3.8mg/dL (2.6-4.7) 3.9mg/dL (2.6-4.7) Magnesium Level 1.9mg/dL (1.8-2.4) 1.8mg/dL (1.8-2.4) Albumin 2.3g/dL (3.4-5.0) 2.4g/dL (3.4-5.0) Glucose (Fingerstick) 106mg/dL (70-99) Laboratory Tests Test 11/04/16 04:00 Sodium Level 143mmol/L (136-145) Potassium Level 4.1mmol/L (3.5-5.1) Chloride Level 103mmol/L (98-107) Carbon Dioxide Level 29mmol/L (21-32) Anion Gap 11 (6-14) Blood Urea Nitrogen 40mg/dL (8-26) Creatinine 4.4mg/dL (0.7-1.3) Estimated GFR (Cockcroft-Gault) 12.8 Glucose Level 105mg/dL (70-99) Calcium Level 9.0mg/dL (8.5-10.1) Phosphorus Level 3.9mg/dL (2.6-4.7) Magnesium Level 1.8mg/dL (1.8-2.4) Albumin 2.4g/dL (3.4-5.0) Brief Hospital Course Mr. Ceballos is a 86 old admit after syncopal episode. ESRD on HD, Prostate Ca with left hip met. hospitalized one month ago for similar, transferrred to , pt was dced to rehab, syncoped 3 times there ,and sent here for eval. CT showed large pericardial effusion. better with Bipap, then HD abx given for poss pna, more like atelectasis Discharge Information Condition at Discharge: Improved Follow Up: Weeks Disposition/Orders: D/C to Home w/ HH Scheduled Amlodipine Besylate (Norvasc) 5 MG PO DAILY (Reported) Ascorbate Calcium (Vitamin C) 500 MG PO DAILY (Reported) Bicalutamide (Casodex) 1 TAB PO DAILY16 (Reported) Calcitriol (Calcitriol) 0.25 MCG PO 4 tablets per week (Reported) Epoetin Emigdio (Procrit) 5,000 UNIT IJ Q2WKS (Reported) Finasteride (Finasteride) 5 MG PO DAILY (Reported) Furosemide (Furosemide) 10 MG PO DAILY (Reported) Levothyroxine Sodium (Synthroid) 75 MCG PO DAILYAC (Reported) Saw [place] Fruit (Saw [place]) 900 MG PO DAILY (Reported) Tamsulosin Hcl (Tamsulosin Hcl) 1 CAP PO QHS (Reported) Patient Instructions Patient Instructions time > 30min GEN DOYLE MD Nov 04, 2016 12:46
[2016-11-04] MEDS ORDERED: ASPIRIN ENTERIC COATED 325 MG TABLET.DR. PO ONE (13:30)
[2016-11-04] MEDS ORDERED: ASPIRIN 325 MG TABLET PO ONE (13:30)
[2016-11-04 15:00] VITALS: BP 91/46
[2016-11-04] MEDS: BICALUTAMIDE 50 MG TABLET PO SCH (15:26)
--- NOTE | 2016-11-04 17:56 | PDOC ---
SUBJECTIVE ROS Pt D/rusty Prior to me being able to see him. I was not called prior to D/c OBJECTIVE Vital Signs Vital Signs Date Time Temp Pulse Resp B/P Pulse Ox O2 Delivery O2 Flow Rate FiO2 11/04/16 15:00 97.6 72 20 91/46 93 Room Air 97.6 I & 0 Intake and Output 11/04/16 07:00 Intake Total 480 ml Output Total 100 ml Balance 380 ml Intake Oral 480 ml Output Urine Total 100 ml # Voids 3 COMMENT/RELEVANT DATA Meds Current Medications Medications (Trade) Dose Ordered Sig/Jaylin Start Time Stop Time Status Last Admin Dose Admin Acetaminophen (Tylenol) 650 mg PRN Q6HRS PRN 10/30/16 14:15 10/31/16 17:40 650 MG Albuterol Sulfate (Ventolin Neb Soln) 2.5 mg PRN Q2HR PRN 10/30/16 14:00 Amlodipine Besylate (Norvasc) 5 mg DAILY 10/31/16 09:00 11/03/16 16:52 5 MG Ascorbic Acid (Vitamin C) 500 mg DAILY 10/31/16 09:00 11/04/16 09:57 500 MG Aspirin (Caio Aspirin) 325 mg 1X ONCE 11/04/16 13:30 11/04/16 13:31 DC 11/04/16 13:34 325 MG Aspirin (Ecotrin) 325 mg 1X ONCE 11/04/16 13:30 11/04/16 13:31 UNV Bicalutamide (Casodex) 50 mg DAILY16 10/30/16 16:00 11/04/16 15:26 50 MG Darbepoetin Emigdio (Aranesp) 60 mcg Th 10/30/16 21:00 10/30/16 22:59 60 MCG Famotidine (Pepcid) 20 mg Q48H 10/30/16 21:00 11/03/16 21:11 20 MG Finasteride (Proscar) 5 mg DAILY 10/31/16 09:00 11/04/16 09:57 5 MG Furosemide (Lasix) 10 mg DAILY 10/31/16 09:00 10/31/16 13:22 DC 10/31/16 10:29 10 MG Heparin Sodium (Porcine) 5000 unit 5,000 unit Q12HR 10/30/16 21:00 11/04/16 09:58 5,000 UNIT Info (Do NOT chart on this entry -- for MONITORING) 1 each PRN DAILY PRN 10/30/16 02:45 11/01/16 02:44 DC Info (PHARMACY MONITORING -- do not chart) 1 each PRN DAILY PRN 11/03/16 09:00 UNV Iohexol (Omnipaque 300 Mg/ml) 75 ml 1X ONCE 10/30/16 03:00 10/30/16 03:01 DC 10/30/16 03:03 75 ML Levothyroxine Sodium (Synthroid) 75 mcg DAILY07 10/31/16 07:00 11/04/16 06:03 75 MCG Magnesium Sulfate/ Dextrose 50 ml @ 25 mls/hr PRN DAILY PRN 11/02/16 12:30 Non-Formulary Medication 5,000 unit Q2WKS 11/13/16 09:00 11/13/16 09:00 DC Non-Formulary Medication 900 mg 900 mg DAILY 10/31/16 09:00 UNV Ondansetron HCl (Zofran) 4 mg PRN Q6HRS PRN 10/30/16 14:15 11/04/16 13:16 4 MG Piperacillin Sod/ Tazobactam Sod (Zosyn Per Pharmacy) 1 each PRN DAILY PRN 10/30/16 14:00 Cancel Piperacillin Sod/ Tazobactam Sod 2.25 gm/Sodium Chloride 50 ml @ 100 mls/hr Q6HRS 10/31/16 18:00 10/31/16 18:00 DC Piperacillin Sod/ Tazobactam Sod/ Sodium Chloride (Zosyn/Iv Sodium Chloride 0.9% 50ml) 50 ml @ 100 mls/hr Q8HRS 10/30/16 14:30 11/03/16 19:07 DC 11/03/16 06:13 100 MLS/HR Sodium Chloride (Iv Sodium Chloride 0.9% 1000ml Bag) 1,000 ml @ 1,000 mls/hr Q1H PRN 11/03/16 08:49 11/03/16 14:48 DC Tamsulosin HCl (Flomax) 0.4 mg QHS 10/30/16 21:00 11/03/16 21:11 0.4 MG Vancomycin HCl (Vanco Per Pharmacy) 1 each PRN DAILY PRN 10/30/16 14:00 10/31/16 18:31 DC 10/31/16 13:02 1 EACH Vancomycin HCl 1 each 1 each 1X ONCE 10/31/16 20:00 10/31/16 20:00 DC Vancomycin HCl/ Sodium Chloride (Iv Sodium Chloride 0.9% 500ml Bag) 500 ml @ 250 mls/hr 1X ONCE 10/30/16 15:00 10/30/16 16:59 DC 10/30/16 15:00 250 MLS/HR Lab Laboratory Tests Test 11/04/16 04:00 Sodium Level 143mmol/L (136-145) Potassium Level 4.1mmol/L (3.5-5.1) Chloride Level 103mmol/L (98-107) Carbon Dioxide Level 29mmol/L (21-32) Anion Gap 11 (6-14) Blood Urea Nitrogen 40mg/dL (8-26) Creatinine 4.4mg/dL (0.7-1.3) Estimated GFR (Cockcroft-Gault) 12.8 Glucose Level 105mg/dL (70-99) Calcium Level 9.0mg/dL (8.5-10.1) Phosphorus Level 3.9mg/dL (2.6-4.7) Magnesium Level 1.8mg/dL (1.8-2.4) Albumin 2.4g/dL (3.4-5.0) CLARENCE MAYERS MD Nov 04, 2016 17:56
[2016-11-13] MEDS ORDERED: EPOETIN ALFA IJ SCH (09:00)
== END 2016-11-04 18:30 | disposition home health service (06) | DRG 291 ==
LOC: ER 00:48 → 1 WEST ICU 04:08 → 5 NORTH 11-01 14:06
PROVIDERS: ADMIT Internal Medicine; ATTEND Internal Medicine
PROC: 5A1D60Z (ICD-10-PCS; principal; 2016-11-01)
DX: I13.2 Hypertensive heart and chronic kidney disease with heart failure and with stage 5 chronic kidney disease, or end stage renal disease (principal); I50.33 Acute on chronic diastolic (congestive) heart failure; N18.6 End stage renal disease; J96.01 Acute respiratory failure with hypoxia; E44.0 Moderate protein-calorie malnutrition; M31.30 Wegener's granulomatosis without renal involvement; E03.9 Hypothyroidism, unspecified; I49.5 Sick sinus syndrome; K21.9 Gastro-esophageal reflux disease without esophagitis; N40.0 Benign prostatic hyperplasia without lower urinary tract symptoms; C61 Malignant neoplasm of prostate; D63.1 Anemia in chronic kidney disease; E21.3 Hyperparathyroidism, unspecified; K57.90 Diverticulosis of intestine, part unspecified, without perforation or abscess without bleeding; M48.06 Spinal stenosis, lumbar region; M54.5 Low back pain; R55 Syncope and collapse; Z85.46 Personal history of malignant neoplasm of prostate; Z87.891 Personal history of nicotine dependence; Z92.21 Personal history of antineoplastic chemotherapy; Z95.0 Presence of cardiac pacemaker; Z68.20 Body mass index [BMI] 20.0-20.9, adult
CPT/HCPCS: 36415; 71010; 71275; 80048; 80053; 80069; 82947; 83735; 83880; 84484; 85018; 85027; 85610; 85730; 93005; 93306; J0881; J2405; J2543; J3370; J7040; Q9967; 97116; 97530; 97535; 99285-25

== ENCOUNTER → 2016-12-09 | Outpatient (CLI) | payer MEDICARE, BC ==
[~2016-12-09] MED LIST changes: +FAMO20TA5 PO
== END | disposition home or self-care (01) ==
LOC: LAB 11:11
PROVIDERS: ATTEND Urology
DX: Z12.5 Encounter for screening for malignant neoplasm of prostate (principal)
CPT/HCPCS: 36415; G0103

== ENCOUNTER → 2017-01-06 | Outpatient (CLI) | payer MEDICARE, BC | END | disposition home or self-care (01) | LOC: LAB 12:49 | PROVIDERS: ATTEND Urology | DX: Z12.5 Encounter for screening for malignant neoplasm of prostate (principal) | CPT/HCPCS: 36415; G0103 ==

== ENCOUNTER → 2017-02-10 | Outpatient (CLI) | payer MEDICARE, BC | END | disposition home or self-care (01) | LOC: LAB 10:56 | PROVIDERS: ATTEND Urology | DX: Z12.5 Encounter for screening for malignant neoplasm of prostate (principal); C61 Malignant neoplasm of prostate | CPT/HCPCS: 36415; G0103 ==

== ENCOUNTER → 2017-03-10 | Outpatient (CLI) | payer MEDICARE, BC | END | disposition home or self-care (01) | LOC: LAB 10:52 | PROVIDERS: ATTEND Urology | DX: Z12.5 Encounter for screening for malignant neoplasm of prostate (principal); C61 Malignant neoplasm of prostate | CPT/HCPCS: 36415; G0103 ==

== ENCOUNTER 2017-04-07 04:13 | Emergency (ER) | payer MEDICARE, BC ==
[~2017-04-07] VITALS: Ht 170.2 cm; Wt 62.6 kg
--- NOTE | 2017-04-07 05:52 | RAD ---
CT head without contrast: Reason for examination: Post fall with knot on 4 head. Comparison is made to previous study dated 10/15/2016. Axial images were obtained through the brain. No contrast was administered. Ventricular systems are prominent but symmetric. No midline shift is seen. There is patchy deep white matter changes in the frontal and parietal lobes which have not changed. There is no intracranial hemorrhage, acute infarct, mass or edema. No acute abnormalities are seen at the orbits. The paranasal sinuses and mastoid air cells are clear. No acute abnormalities seen in the skull. There is a left frontal scalp hematoma. IMPRESSION: Cerebral atrophy with some deep white matter microvascular ischemic changes. No acute intracranial abnormality evident. Left frontal scalp hematoma. CT cervical spine without contrast: Helical images were obtained from the skull base through the thoracic apices with no contrast administered. Reconstruction was performed in sagittal and coronal planes. The C1 ring appears to be intact. The odontoid process is intact and normally centered between the lateral masses of C1. The cervical vertebral bodies show a 5 mm anterolisthesis of C3 on C4 which appears chronic with loss of the disc space and a fused appearance at the disc base. There is also a 3.3 mm anterolisthesis of C7 on T1. Remaining vertebral bodies are normally aligned. There is [id number] narrowing of the disc at the C5-6 disc level. There is severe narrowing of the disc space at the C6-7 disc level. Prevertebral soft tissues are normal. The posterior elements appear to be intact IMPRESSION: Chronic appearing grade 2 anterolisthesis of C3 on C4. Grade one anterolisthesis of C7 on T1. Severe degenerative spondylosis with loss of the disc spaces with [id number] narrowing/fusion at the C3-4 and C5-6 disc levels. Severe loss of disc height at the C6-7 level. No acute abnormality evident in the cervical spine. Exposure: One or more of the following individualized dose reduction techniques were utilized for this examination: 1. Automated exposure control 2. Adjustment of the mA and/or kV according to patient size 3. Use of iterative reconstruction technique. Electronically signed by: Kaitlyn Shaikh MD (04/07/2017 5:48 AM) [facility]
--- NOTE | 2017-04-07 05:54 | PHYS DOC ---
Past Medical History Past Medical History: Cancer, CHF, GERD, Hypothyroid, Renal Failure, Unknown, Other Additional Past Medical Histor: BPH, ESRD, PROSTATE CA, WEGENERS GRANULOMATOSIS Past Surgical History: Pacemaker, Other Additional Past Surgical Histo: right dialysis fistula; hernia, BI LAT [employer] Alcohol Use: None Drug Use: None Adult General Chief Complaint Chief Complaint: MECHANICAL FALL HPI HPI History of Present Illness Patient is a 86 year old gentleman who presents here today secondary to falling and hitting his head earlier this evening while walking to the bathroom. Patient denies any loss of consciousness. Patient has a nausea vomiting. Patient denies any hip pain or lower 70 pain. Patient has any shoulder pain. Patient denies any neck pain. Patient denies any abdominal or chest pain. Patient denies any chest pain shortness of breath cough cold runny nose. Patient has no nausea vomiting diarrhea. Past Medical History Cardiovascular: HTN, Valve insufficiency, Other CENTRAL NERVOUS SYSTEM: Other GI: Diverticulosis Heme/Onc: Anemia NOS, Cancer Rheumatologic: Other Infectious disease: No pertinent hx Renal/: Chronic renal failure, Benign prostatic enlarg. Endocrine: Hypothyroidism, Hyperparathyroidism Past Surgical History Past Surgical History: Pacemaker, Hernia Repair, Other Family History Family History: Heart Disease Social History Smoke: No ALCOHOL: none Drugs: None Patient's physical exam was significant for soft tissue swelling to his forehead with a small abrasion. Patient has a hematoma to his forehead. It is tender to palpation. Patient has no C-spine T-spine or L-spine tenderness to palpation. Patient is alert awake and oriented 3. All extremities of the patient or palpated and with range of motion without any discomfort. Patient is no shortening or rotation of his lower semis. Patient's pelvis is stable. Assessment and plan this 86-year-old gentleman who presents here today with blunt head trauma secondary to a fall while walking to the bathroom. Patient reports she tripped. Patient has any dizziness or loss of consciousness. Patient 's ER workup is benign unremarkable. Patient is CT scan of his head and C-spine which were unremarkable. Patient does have a superficial laceration to his forehead which will be treated with Dermabond. Patient will receive a tetanus shot. Patient is clinically and hemodynamically stable for discharged home at this time. Review of Systems Review of Systems Constitutional: Denies fever or chills [] Eyes: Denies change in visual acuity, redness, or eye pain [] All other review systems are negative except as documented by the history of present illness portion. Current Medications Current Medications Current Medications Medications (Trade) Dose Ordered Sig/Jaylin Start Time Stop Time Status Last Admin Dose Admin Diphtheria/ Tetanus/Acell Pertussis (Boostrix) 0.5 ml ONCE ONCE 04/07/17 06:00 04/07/17 06:01 Midazolam HCl (Versed) 2 mg 1X ONCE 04/07/17 06:00 04/07/17 06:01 Cancel Allergies Allergies Allergies Coded Allergies Type Severity Reaction Last Updated Verified No Known Drug Allergies 03/20/14 No Physical Exam Physical Exam Constitutional: Well developed, well nourished, no acute distress, non-toxic appearance. [] HENT: Moderate sized hematoma to his forehead with a 1 cm superficial laceration. Eyes: l, no discharge. [] Neck: Normal range of motion, no tenderness, supple, no stridor. [] Cardiovascular:Heart rate regular rhythm, Lungs & Thorax: Bilateral breath sounds clear to auscultation [] Abdomen: Bowel sounds normal, soft, no tenderness, no masses, no pulsatile masses. [] Skin: Warm, dry, no erythema, no rash. [] Back: No tenderness, no CVA tenderness. [] Extremities: No tenderness, no cyanosis, no clubbing, ROM intact, no edema. [] Right AV fistula with good bruit and thrill. Neurologic: Alert and oriented X 3, normal motor function, normal sensory function, no focal deficits noted. [] Psychologic: Affect normal, judgement normal, mood normal. [] All bones and joints palpated without any tenderness or discomfort. Current Patient Data Vital Signs Vital Signs Date Time Temp Pulse Resp B/P (MAP) Pulse Ox O2 Delivery O2 Flow Rate FiO2 04/07/17 05:25 60 16 176/72 (106) 94 Room Air 04/07/17 04:19 98.0 98.0 EKG EKG [] Radiology/Procedures Radiology/Procedures [] Course & Med Decision Making Course & Med Decision Making Pertinent Labs and Imaging studies reviewed. (See chart for details) [] Dragon Disclaimer Dragon Disclaimer This electronic medical record was generated, in whole or in part, using a voice recognition dictation system. Departure Departure Impression: Primary Impression: Head injury Additional Impression: Forehead laceration Disposition: 01 HOME, SELF-CARE Condition: STABLE Referrals: FRED IBRAHIM MD (PCP) Patient Instructions: Facial Laceration, Head Injury, Adult Additional Instructions: Please follow up with your family doctor in one to 2 days for wound check. Problem Qualifiers TAWANA ALVARADO MD Apr 07, 2017 05:54
[2017-04-07] MEDS ORDERED: DIPHTH,PERTUSS(ACELL),TET TOX 0.5 ML DISP.SYRIN. VAX IM ONE (06:00)
[2017-04-07] MEDS ORDERED: MIDAZOLAM HCL/PF 2 MG/2 ML VIAL. IV ONE (06:00)
[2017-04-07 06:25] VITALS: BP 159/70
== END 2017-04-07 06:35 | disposition home or self-care (01) ==
LOC: ER 04:13
DX: S09.90XA Unspecified injury of head, initial encounter (principal); S01.81XA Laceration without foreign body of other part of head, initial encounter; I13.2 Hypertensive heart and chronic kidney disease with heart failure and with stage 5 chronic kidney disease, or end stage renal disease; I50.9 Heart failure, unspecified; N18.6 End stage renal disease; K21.9 Gastro-esophageal reflux disease without esophagitis; E03.9 Hypothyroidism, unspecified; N40.0 Benign prostatic hyperplasia without lower urinary tract symptoms; Z95.0 Presence of cardiac pacemaker; W18.09XA Striking against other object with subsequent fall, initial encounter; Y93.01 Activity, walking, marching and hiking; Y99.8 Other external cause status; Y92.091 Bathroom in other non-institutional residence as the place of occurrence of the external cause
CPT/HCPCS: 70450; 72125; 90471; 90715; 99284-25

== ENCOUNTER → 2017-04-09 | Outpatient (CLI) | payer MEDICARE, BC ==
[2017-04-07 06:25] VITALS: BP 159/70
== END | disposition home or self-care (01) ==
LOC: LAB 11:50
PROVIDERS: ATTEND Urology
DX: Z12.5 Encounter for screening for malignant neoplasm of prostate (principal); C61 Malignant neoplasm of prostate
CPT/HCPCS: 36415; G0103

== ENCOUNTER → 2017-06-16 | Outpatient (CLI) | payer MEDICARE, BC ==
[2017-04-28 15:00] VITALS: BP 103/63
[~2017-06-16] MED LIST changes: +ASPI-612 PO; +FOLI0.8T21 PO; +FURO20TA3 PO; +IRON150C15 PO; +OMEP20CA9 PO
== END | disposition home or self-care (01) ==
LOC: LAB 10:51
PROVIDERS: ATTEND Urology
DX: Z12.5 Encounter for screening for malignant neoplasm of prostate (principal); C61 Malignant neoplasm of prostate
CPT/HCPCS: 36415; G0103

== ENCOUNTER 2017-11-13 09:20 | Inpatient (IN) | payer MEDICARE, BC ==
[2017-11-13 09:44] LABS: HEMATOCRIT 22.2 % (39.0-53.0); HEMOGLOBIN 7.2 g/dL (13.0-17.5); MEAN CORPUSCULAR HEMOGLOBIN 31 pg (25-35); MEAN CORPUSCULAR HGB CONC 33 g/dL (31-37); MEAN CORPUSCULAR VOLUME 94 fL (79-100); PLATELET COUNT 130 x10^3/uL (140-400); RED BLOOD COUNT 2.36 x10^6/uL (4.30-5.70); RED CELL DISTRIBUTION WIDTH 15.8 % (11.5-14.5); WHITE BLOOD COUNT 4.3 x10^3/uL (4.0-11.0)
[2017-11-13 09:53] LABS: POC GLUCOSE 111 mg/dL (70-99)
[2017-11-13 09:58] LABS: INR 1.5 (0.8-1.1); PARTIAL THROMBOPLASTIN TIME 36 SEC (24-38); PROTHROMBIN TIME PATIENT 17.5 SEC (11.7-14.0)
[2017-11-13 10:03] LABS: BLOOD UREA NITROGEN 72 mg/dL (8-26); CALCIUM 8.4 mg/dL (8.5-10.1); CREATININE 4.1 mg/dL (0.7-1.3); GLUCOSE 123 mg/dL (70-99)
[2017-11-13 10:04] LABS: ANION GAP 9 (6-14); CARBON DIOXIDE 29 mmol/L (21-32); CHLORIDE 101 mmol/L (98-107); GFR 13.9; SODIUM 139 mmol/L (136-145)
[2017-11-13 10:08] LABS: LACTIC ACID 0.9 mmol/L (0.4-2.0)
[2017-11-13 10:31] LABS: INFLUENZA A PATIENT NEGATIVE (NEGATIVE); INFLUENZA B PATIENT NEGATIVE (NEGATIVE); OBC FLU VALID
[2017-11-13] MEDS ORDERED: levOFLOXacin PER PHARMACY. MC (10:45)
[2017-11-13 10:50] LABS: FECAL OB PT NEGATIVE (NEG); NEG OBC FOB NEG; POS OBC FOB POS
[2017-11-13] MEDS ORDERED: PIPERACILLIN/TAZOBACTAM 2.25 GM in IV NORMAL SALINE 50ML 50 ML IV (11:00)
[2017-11-13 11:35] LABS: BILIRUBIN,URINE NEGATIVE (NEG); CLARITY,URINE CLOUDY; COLOR,URINE YELLOW; GLUCOSE,URINE NEGATIVE (NEG); NITRITE,URINE NEGATIVE (NEG); PROTEIN,URINE 100 mg/dL (NEG-TRACE); UROBILINOGEN,URINE 0.2 mg/dL (0.2 mg/dL)
[2017-11-13] MEDS: CEFEPIME HCL 1 GM in IV NORMAL SALINE 50ML 50 ML IV (11:42)
[2017-11-13 11:52] LABS: AMORPHOUS SEDIMENT,UR PRESENT /HPF
[2017-11-13 11:59] LABS: WBC,URINE >40 /HPF (0-4)
[2017-11-13 12:00] LABS: BACTERIA,URINE FEW /HPF (0-FEW); RBC,URINE >40 /HPF (0-2)
[2017-11-13] MEDS ORDERED: CEFEPIME HCL 2 GM in IV DEXTROSE 5% 100 ML IV (14:00)
[2017-11-13] MEDS: VANCOMYCIN 1.75 GM in IV DEXTROSE 5 %-0.2 % NACL 500 ML IV ×2 (14:17→21:33)
[2017-11-13] MEDS: VANCOMYCIN PER PHARMACY MC ×2 (15:00→19:16)
[2017-11-13] MEDS: DEXAMETHASONE 0.1% OPHTH SOLUTION 5ML BOTTLE. OU ×2 (17:00→21:41)
[2017-11-13] MEDS: DARBEPOETIN ALFA 25 MCG/0.42 ML DISP.SYRIN. SQ (21:00)
[2017-11-13] MEDS: TAMSULOSIN 0.4 MG CAP.ER.24H. PO (21:33)
[2017-11-13] MEDS: APIXABAN 2.5 MG TABLET. PO (21:33)
[2017-11-13] MEDS: FAMOTIDINE 20 MG TABLET. PO (21:33)
[2017-11-13] MEDS: CARBIDOPA/LEVODOPA 25/100MG TABLET NG (21:40)
[2017-11-13] MEDS: DARBEPOETIN ALFA 60 MCG/0.3 ML DISP.SYRIN. SQ (23:42)
[2017-11-14 04:22] LABS: MRSA BY PCR Positive (Negative)
[2017-11-14] MEDS: ASCORBIC ACID 500 MG TABLET PO (08:17)
[2017-11-14] MEDS: LEVOTHYROXINE 50 MCG TABLET PO (08:17)
[2017-11-14] MEDS: amLODIPine BESYLATE 5 MG TABLET PO (08:17)
[2017-11-14] MEDS: FOLIC/VIT B COMP W-C (RENAL) TABLET. PO (08:17)
[2017-11-14] MEDS: APIXABAN 2.5 MG TABLET. PO ×2 (08:18→21:05)
[2017-11-14] MEDS: FINASTERIDE 5 MG TABLET. PO (08:18)
[2017-11-14] MEDS: CINACALCET HCL 30 MG TABLET PO (08:18)
[2017-11-14] MEDS: FUROSEMIDE 20 MG TABLET PO (08:18)
[2017-11-14] MEDS: ASPIRIN ENTERIC COATED 81 MG TABLET.DR. PO (08:18)
[2017-11-14] MEDS: CALCITRIOL 0.25 MCG CAPSULE. PO (08:18)
[2017-11-14] MEDS: CARBIDOPA/LEVODOPA 25/100MG TABLET NG ×3 (08:19→17:18)
[2017-11-14] MEDS: DEXAMETHASONE 0.1% OPHTH SOLUTION 5ML BOTTLE. OU ×4 (08:31→21:04)
[2017-11-14] MEDS: ACETAMINOPHEN 650 MG/20.3 ML SOLUTION. PEG (08:31)
[2017-11-14] MEDS ORDERED: FOLIC/VIT B COMP W-C (RENAL) TABLET. PO (09:00)
[2017-11-14] MEDS ORDERED: NON FORMULARY ITEM (Saw Palmetto Fruit (Saw Palmetto) 450 MG) PO (09:00)
[2017-11-14] MEDS: VANCOMYCIN PER PHARMACY MC (11:50)
[2017-11-14] MEDS: CEFEPIME HCL 1 GM in IV NORMAL SALINE 50ML 50 ML IV (12:19)
[2017-11-14] MEDS: ANTI-COAG MONITOR BY PHARMACY. MC (16:30)
[2017-11-14] MEDS: TAMSULOSIN 0.4 MG CAP.ER.24H. PO (21:04)
[2017-11-15 00:20] LABS: POC GLUCOSE 83 mg/dL (70-99)
[2017-11-15 05:35] LABS: BASO % 0 % (0-3); EOS # 0.2 x10^3/uL (0.0-0.7); EOS % 6 % (0-3); LYMPH # 0.5 x10^3/uL (1.0-4.8); LYMPH % 19 % (24-48); MEAN CORPUSCULAR HEMOGLOBIN 32 pg (25-35); MEAN CORPUSCULAR HGB CONC 34 g/dL (31-37); MEAN CORPUSCULAR VOLUME 93 fL (79-100); MONO # 0.5 x10^3/uL (0.0-1.1); MONO % 20 % (0-9); NEUT # 1.5 x10^3uL (1.8-7.7); NEUT % 55 % (31-73); PLATELET COUNT 111 x10^3/uL (140-400); RED BLOOD COUNT 2.15 x10^6/uL (4.30-5.70); RED CELL DISTRIBUTION WIDTH 15.4 % (11.5-14.5); WHITE BLOOD COUNT 2.7 x10^3/uL (4.0-11.0)
[2017-11-15 05:45] LABS: HEMOGLOBIN 6.9 g/dL (13.0-17.5)
[2017-11-15 05:46] LABS: ADD MAN DIFF? YES
[2017-11-15] MEDS: DEXAMETHASONE 0.1% OPHTH SOLUTION 5ML BOTTLE. OU ×4 (08:34→21:07)
[2017-11-15] MEDS: FINASTERIDE 5 MG TABLET. PO (08:35)
[2017-11-15] MEDS: LEVOTHYROXINE 50 MCG TABLET PO (08:35)
[2017-11-15] MEDS: ASCORBIC ACID 500 MG TABLET PO (08:35)
[2017-11-15] MEDS: CALCITRIOL 0.25 MCG CAPSULE. PO (08:35)
[2017-11-15] MEDS: FUROSEMIDE 20 MG TABLET PO (08:35)
[2017-11-15] MEDS: CINACALCET HCL 30 MG TABLET PO (08:35)
[2017-11-15] MEDS: FOLIC/VIT B COMP W-C (RENAL) TABLET. PO (08:35)
[2017-11-15] MEDS: ASPIRIN ENTERIC COATED 81 MG TABLET.DR. PO (08:36)
[2017-11-15] MEDS: CARBIDOPA/LEVODOPA 25/100MG TABLET NG ×3 (08:36→16:02)
[2017-11-15] MEDS: APIXABAN 2.5 MG TABLET. PO ×2 (08:36→20:21)
[2017-11-15] MEDS: amLODIPine BESYLATE 5 MG TABLET PO (08:37)
[2017-11-15] MEDS: CEFEPIME HCL 1 GM in IV NORMAL SALINE 50ML 50 ML IV (10:49)
[2017-11-15 11:02] LABS: % ATYL 1 % (0-0); % EOS 3 % (0-5); % LYMPHS 20 % (24-48); % MONOS 12 % (0-10); % SEGS 64 % (35-66)
[2017-11-15 11:03] LABS: ANISOCYTOSIS SLIGHT; PLT ESTIMATE DECREASED (ADEQUATE)
[2017-11-15 11:41] LABS: POC GLUCOSE 113 mg/dL (70-99)
[2017-11-15] MEDS: ANTI-COAG MONITOR BY PHARMACY. MC (11:54)
[2017-11-15] MEDS: PIPERACILLIN/TAZOBACTAM 2.25 GM in IV NORMAL SALINE 50ML 50 ML IV ×2 (13:55→21:08)
[2017-11-15] MEDS: IRON SUCROSE COMPLEX 500 MG in IV NORMAL SALINE 250ML 250 ML IV (13:58)
[2017-11-15] MEDS: POLYETHYLENE GLYCOL 3350 238 GM POWDER PEG (13:59)
[2017-11-15 15:36] LABS: HEMATOCRIT 22.8 % (39.0-53.0)
[2017-11-15 15:36] LABS: HEMOGLOBIN 7.7 g/dL (13.0-17.5)
[2017-11-15] MEDS: ACETAMINOPHEN 650 MG/20.3 ML SOLUTION. PEG (16:11)
[2017-11-15] MEDS: TAMSULOSIN 0.4 MG CAP.ER.24H. PO (21:07)
[2017-11-15] MEDS: FAMOTIDINE 20 MG TABLET. PO (21:07)
[2017-11-16 05:31] LABS: ADD MAN DIFF? NO
[2017-11-16 05:35] LABS: BASO % 0 % (0-3); EOS # 0.2 x10^3/uL (0.0-0.7); EOS % 6 % (0-3); HEMATOCRIT 23.1 % (39.0-53.0); HEMOGLOBIN 7.8 g/dL (13.0-17.5); LYMPH # 0.5 x10^3/uL (1.0-4.8); LYMPH % 17 % (24-48); MEAN CORPUSCULAR HEMOGLOBIN 31 pg (25-35); MEAN CORPUSCULAR HGB CONC 34 g/dL (31-37); MEAN CORPUSCULAR VOLUME 92 fL (79-100); MONO # 0.6 x10^3/uL (0.0-1.1); MONO % 18 % (0-9); NEUT # 1.9 x10^3uL (1.8-7.7); NEUT % 59 % (31-73); PLATELET COUNT 115 x10^3/uL (140-400); RED BLOOD COUNT 2.51 x10^6/uL (4.30-5.70); RED CELL DISTRIBUTION WIDTH 15.7 % (11.5-14.5); WHITE BLOOD COUNT 3.2 x10^3/uL (4.0-11.0)
[2017-11-16] MEDS: PIPERACILLIN/TAZOBACTAM 2.25 GM in IV NORMAL SALINE 50ML 50 ML IV ×3 (05:35→21:22)
[2017-11-16] MEDS ORDERED: VANCOMYCIN RANDOM LEVEL. MC (06:00)
[2017-11-16 06:05] LABS: ALBUMIN 2.1 g/dL (3.4-5.0); ALBUMIN/GLOBULIN RATIO 0.6 (1.0-1.7); ALK PHOS 68 U/L (46-116); ALT (SGPT) 8 U/L (16-63); ANION GAP 12 (6-14); AST (SGOT) 30 U/L (15-37); BLOOD UREA NITROGEN 57 mg/dL (8-26); BUN/CREATININE RATIO 14 (6-20); CALCIUM 7.4 mg/dL (8.5-10.1); CARBON DIOXIDE 26 mmol/L (21-32); CHLORIDE 99 mmol/L (98-107); CREATININE 4.2 mg/dL (0.7-1.3); GFR 13.5; GLUCOSE 101 mg/dL (70-99); POTASSIUM 3.7 mmol/L (3.5-5.1); SODIUM 137 mmol/L (136-145); TOTAL BILIRUBIN 0.4 mg/dL (0.2-1.0); TOTAL PROTEIN 5.7 g/dL (6.4-8.2)
[2017-11-16] MEDS: LEVOTHYROXINE 50 MCG TABLET PO (06:57)
[2017-11-16] MEDS: ASPIRIN ENTERIC COATED 81 MG TABLET.DR. PO (06:58)
[2017-11-16] MEDS: FUROSEMIDE 20 MG TABLET PO (06:58)
[2017-11-16] MEDS: CARBIDOPA/LEVODOPA 25/100MG TABLET NG ×3 (06:58→14:58)
[2017-11-16] MEDS: amLODIPine BESYLATE 5 MG TABLET PO (06:58)
[2017-11-16] MEDS: DEXAMETHASONE 0.1% OPHTH SOLUTION 5ML BOTTLE. OU ×4 (06:58→21:13)
[2017-11-16] MEDS: APIXABAN 2.5 MG TABLET. PO (06:58)
[2017-11-16] MEDS: ASCORBIC ACID 500 MG TABLET PO (06:59)
[2017-11-16] MEDS: FOLIC/VIT B COMP W-C (RENAL) TABLET. PO (06:59)
[2017-11-16] MEDS: CALCITRIOL 0.25 MCG CAPSULE. PO (06:59)
[2017-11-16] MEDS: CINACALCET HCL 30 MG TABLET PO (06:59)
[2017-11-16] MEDS: FINASTERIDE 5 MG TABLET. PO (06:59)
[2017-11-16] MEDS: IV RINGERS,LACTATED 1000ML 1,000 ML IV (07:05)
[2017-11-16] MEDS ORDERED: LIDOCAINE 1% PF 2 ML VIAL. ID ×2 (07:15)
[2017-11-16] MEDS ORDERED: fentaNYL PF VIAL 100 MCG/2 ML VIAL IV ×4 (07:15)
[2017-11-16] MEDS ORDERED: MIDAZOLAM HCL/PF 2 MG/2 ML VIAL. IV ×2 (07:15)
[2017-11-16] MEDS: IV NORMAL SALINE 1000ML BAG 1,000 ML IV ×2 (07:30→07:37)
[2017-11-16] MEDS ORDERED: LIDOCAINE 2% PF Vial for OR 5 ML VIAL. (08:11)
[2017-11-16] MEDS ORDERED: PROPOFOL 20 ML IV (08:11)
[2017-11-16 12:11] LABS: POC GLUCOSE 123 mg/dL (70-99)
[2017-11-16] MEDS ORDERED: IV NORMAL SALINE 1000ML BAG 1,000 ML IV ×2 (15:55)
[2017-11-16] MEDS ORDERED: DIALYSIS PATIENT. MC ×2 (16:00)
[2017-11-16] MEDS: FLUCONAZOLE 100MG/50ML PREMIX 50 ML IV (21:14)
[2017-11-16] MEDS: TAMSULOSIN 0.4 MG CAP.ER.24H. PO (21:14)
[2017-11-17 00:22] LABS: POC GLUCOSE 142 mg/dL (70-99)
[2017-11-17 04:06] LABS: ADD MAN DIFF? NO
[2017-11-17 04:29] LABS: BASO % 0 % (0-3); EOS % 1 % (0-3); LYMPH # 0.6 x10^3/uL (1.0-4.8); LYMPH % 17 % (24-48); MEAN CORPUSCULAR HEMOGLOBIN 31 pg (25-35); MEAN CORPUSCULAR HGB CONC 34 g/dL (31-37); MEAN CORPUSCULAR VOLUME 91 fL (79-100); MONO # 0.7 x10^3/uL (0.0-1.1); MONO % 17 % (0-9); NEUT # 2.4 x10^3uL (1.8-7.7); NEUT % 64 % (31-73); PLATELET COUNT 106 x10^3/uL (140-400); RED BLOOD COUNT 2.11 x10^6/uL (4.30-5.70); RED CELL DISTRIBUTION WIDTH 15.4 % (11.5-14.5); WHITE BLOOD COUNT 3.8 x10^3/uL (4.0-11.0)
[2017-11-17 05:09] LABS: HEMATOCRIT 19.2 % (39.0-53.0); HEMOGLOBIN 6.6 g/dL (13.0-17.5)
[2017-11-17] MEDS: PIPERACILLIN/TAZOBACTAM 2.25 GM in IV NORMAL SALINE 50ML 50 ML IV ×3 (05:59→22:17)
[2017-11-17 07:08] LABS: POC GLUCOSE 143 mg/dL (70-99)
[2017-11-17] MEDS: ASPIRIN ENTERIC COATED 81 MG TABLET.DR. PO (08:00)
[2017-11-17] MEDS: LEVOTHYROXINE 50 MCG TABLET PO (08:54)
[2017-11-17] MEDS: ACETAMINOPHEN 650 MG/20.3 ML SOLUTION. PEG (08:54)
[2017-11-17] MEDS: FOLIC/VIT B COMP W-C (RENAL) TABLET. PO (08:55)
[2017-11-17] MEDS: CINACALCET HCL 30 MG TABLET PO (08:55)
[2017-11-17] MEDS: FINASTERIDE 5 MG TABLET. PO (08:55)
[2017-11-17] MEDS: amLODIPine BESYLATE 5 MG TABLET PO (08:55)
[2017-11-17] MEDS: CARBIDOPA/LEVODOPA 25/100MG TABLET NG ×3 (08:55→17:52)
[2017-11-17] MEDS: ASCORBIC ACID 500 MG TABLET PO (08:55)
[2017-11-17] MEDS: CALCITRIOL 0.25 MCG CAPSULE. PO (08:56)
[2017-11-17] MEDS: FUROSEMIDE 20 MG TABLET PO (08:56)
[2017-11-17] MEDS: DEXAMETHASONE 0.1% OPHTH SOLUTION 5ML BOTTLE. OU ×4 (08:57→20:22)
[2017-11-17] MEDS ORDERED: FUROSEMIDE 20 MG TABLET FT (11:26)
[2017-11-17 12:17] LABS: POC GLUCOSE 120 mg/dL (70-99)
[2017-11-17] MEDS: FAMOTIDINE 20 MG TABLET. FT (12:28)
[2017-11-17 14:49] LABS: IMMEDIATE SPIN CROSSMATCH 1 2
[2017-11-17 18:17] LABS: HEMATOCRIT 22.8 % (39.0-53.0); HEMOGLOBIN 7.7 g/dL (13.0-17.5); MEAN CORPUSCULAR HGB CONC 34 g/dL (31-37)
[2017-11-17] MEDS: FLUCONAZOLE 100MG/50ML PREMIX 50 ML IV (20:22)
[2017-11-17] MEDS: TAMSULOSIN 0.4 MG CAP.ER.24H. PO (20:22)
[2017-11-18 00:58] LABS: POC GLUCOSE 105 mg/dL (70-99)
[2017-11-18 04:45] LABS: ADD MAN DIFF? NO
[2017-11-18 05:08] LABS: ANION GAP 9 (6-14); BLOOD UREA NITROGEN 39 mg/dL (8-26); CALCIUM 7.8 mg/dL (8.5-10.1); CARBON DIOXIDE 30 mmol/L (21-32); CHLORIDE 102 mmol/L (98-107); CREATININE 3.8 mg/dL (0.7-1.3); GFR 15.1; GLUCOSE 124 mg/dL (70-99); POTASSIUM 3.3 mmol/L (3.5-5.1); SODIUM 141 mmol/L (136-145)
[2017-11-18 05:10] LABS: BASO % 0 % (0-3); EOS # 0.2 x10^3/uL (0.0-0.7); EOS % 4 % (0-3); HEMATOCRIT 23.1 % (39.0-53.0); HEMOGLOBIN 7.7 g/dL (13.0-17.5); LYMPH # 0.8 x10^3/uL (1.0-4.8); LYMPH % 21 % (24-48); MEAN CORPUSCULAR HEMOGLOBIN 30 pg (25-35); MEAN CORPUSCULAR HGB CONC 33 g/dL (31-37); MEAN CORPUSCULAR VOLUME 90 fL (79-100); MONO # 0.6 x10^3/uL (0.0-1.1); MONO % 15 % (0-9); NEUT # 2.3 x10^3uL (1.8-7.7); NEUT % 59 % (31-73); PLATELET COUNT 113 x10^3/uL (140-400); RED BLOOD COUNT 2.57 x10^6/uL (4.30-5.70); RED CELL DISTRIBUTION WIDTH 16.4 % (11.5-14.5); WHITE BLOOD COUNT 3.9 x10^3/uL (4.0-11.0)
[2017-11-18] MEDS: PIPERACILLIN/TAZOBACTAM 2.25 GM in IV NORMAL SALINE 50ML 50 ML IV ×3 (06:16→22:23)
[2017-11-18] MEDS: LEVOTHYROXINE 50 MCG TABLET FT (07:30)
[2017-11-18] MEDS ORDERED: ASPIRIN CHEWABLE 81 MG TABLET. FT (08:00)
[2017-11-18] MEDS ORDERED: IV NORMAL SALINE 1000ML BAG 1,000 ML IV (08:00)
[2017-11-18] MEDS: CARBIDOPA/LEVODOPA 25/100MG TABLET NG ×3 (08:30→16:30)
[2017-11-18] MEDS: CINACALCET HCL 30 MG TABLET PO (08:58)
[2017-11-18] MEDS: CALCITRIOL 0.25 MCG CAPSULE. PO (08:59)
[2017-11-18] MEDS: FOLIC/VIT B COMP W-C (RENAL) TABLET. PO (09:00)
[2017-11-18] MEDS: ASCORBIC ACID 500 MG TABLET FT (09:00)
[2017-11-18] MEDS: DEXAMETHASONE 0.1% OPHTH SOLUTION 5ML BOTTLE. OU ×4 (09:21→20:57)
[2017-11-18 11:45] LABS: POC GLUCOSE 107 mg/dL (70-99)
[2017-11-18] MEDS ORDERED: DIALYSIS PATIENT. MC ×2 (12:15)
[2017-11-18] MEDS: amLODIPine BESYLATE 5 MG TABLET FT (16:30)
[2017-11-18] MEDS: FINASTERIDE 5 MG TABLET. PO (16:30)
[2017-11-18] MEDS: FLUCONAZOLE 100MG/50ML PREMIX 50 ML IV (20:57)
[2017-11-18] MEDS: ACETAMINOPHEN 650 MG/20.3 ML SOLUTION. PEG (20:57)
[2017-11-18] MEDS: TAMSULOSIN 0.4 MG CAP.ER.24H. PO (20:57)
[2017-11-19 00:50] LABS: POC GLUCOSE 96 mg/dL (70-99)
[2017-11-19] MEDS: PIPERACILLIN/TAZOBACTAM 2.25 GM in IV NORMAL SALINE 50ML 50 ML IV ×3 (05:39→23:03)
[2017-11-19 08:06] LABS: POC GLUCOSE 95 mg/dL (70-99)
[2017-11-19] MEDS: CALCITRIOL 0.25 MCG CAPSULE. PO ×2 (09:00→09:06)
[2017-11-19] MEDS: CARBIDOPA/LEVODOPA 25/100MG TABLET NG ×3 (09:05→17:33)
[2017-11-19] MEDS: FOLIC/VIT B COMP W-C (RENAL) TABLET. PO (09:05)
[2017-11-19] MEDS: FINASTERIDE 5 MG TABLET. PO (09:05)
[2017-11-19] MEDS: CINACALCET HCL 30 MG TABLET PO (09:05)
[2017-11-19] MEDS: ASCORBIC ACID 500 MG TABLET FT (09:05)
[2017-11-19] MEDS: DEXAMETHASONE 0.1% OPHTH SOLUTION 5ML BOTTLE. OU ×4 (09:06→19:48)
[2017-11-19] MEDS: LEVOTHYROXINE 50 MCG TABLET FT (09:06)
[2017-11-19] MEDS: amLODIPine BESYLATE 5 MG TABLET FT (09:06)
[2017-11-19 09:24] LABS: ADD MAN DIFF? NO
[2017-11-19 09:37] LABS: BASO % 0 % (0-3); EOS # 0.2 x10^3/uL (0.0-0.7); EOS % 5 % (0-3); HEMATOCRIT 24.1 % (39.0-53.0); LYMPH % 24 % (24-48); MEAN CORPUSCULAR HEMOGLOBIN 30 pg (25-35); MEAN CORPUSCULAR HGB CONC 33 g/dL (31-37); MEAN CORPUSCULAR VOLUME 92 fL (79-100); MONO # 0.6 x10^3/uL (0.0-1.1); MONO % 16 % (0-9); NEUT # 2.2 x10^3uL (1.8-7.7); NEUT % 56 % (31-73); PLATELET COUNT 117 x10^3/uL (140-400); RED BLOOD COUNT 2.63 x10^6/uL (4.30-5.70); RED CELL DISTRIBUTION WIDTH 16.6 % (11.5-14.5)
[2017-11-19 09:39] LABS: ANION GAP 4 (6-14); BLOOD UREA NITROGEN 29 mg/dL (8-26); CALCIUM 8.1 mg/dL (8.5-10.1); CARBON DIOXIDE 32 mmol/L (21-32); CHLORIDE 105 mmol/L (98-107); CREATININE 3.2 mg/dL (0.7-1.3); GFR 18.5; GLUCOSE 100 mg/dL (70-99); POTASSIUM 3.6 mmol/L (3.5-5.1); SODIUM 141 mmol/L (136-145)
[2017-11-19 12:54] LABS: POC GLUCOSE 109 mg/dL (70-99)
[2017-11-19] MEDS: FAMOTIDINE 20 MG TABLET. FT (13:15)
[2017-11-19 14:32] LABS: PROTEINASE 3 ANTIBODY 21.7 U/mL (0.0-3.5)
[2017-11-19 14:32] LABS: MYELOPEROXIDASE ABY <9.0 U/mL (0.0-9.0)
[2017-11-19 18:28] LABS: POC GLUCOSE 112 mg/dL (70-99)
[2017-11-19] MEDS: TAMSULOSIN 0.4 MG CAP.ER.24H. PO (19:48)
[2017-11-19] MEDS: FLUCONAZOLE 100MG/50ML PREMIX 50 ML IV (20:00)
[2017-11-20] LABS: POC GLUCOSE 108 mg/dL (70-99)
[2017-11-20] MEDS: PIPERACILLIN/TAZOBACTAM 2.25 GM in IV NORMAL SALINE 50ML 50 ML IV (06:14)
[2017-11-20] MEDS: CINACALCET HCL 30 MG TABLET PO ×2 (09:00→09:18)
[2017-11-20] MEDS: CARBIDOPA/LEVODOPA 25/100MG TABLET NG ×3 (09:18→20:50)
[2017-11-20] MEDS: LEVOTHYROXINE 50 MCG TABLET FT (09:18)
[2017-11-20] MEDS: amLODIPine BESYLATE 5 MG TABLET FT (09:19)
[2017-11-20] MEDS: FINASTERIDE 5 MG TABLET. PO (09:19)
[2017-11-20] MEDS: ASCORBIC ACID 500 MG TABLET FT (09:19)
[2017-11-20] MEDS: DEXAMETHASONE 0.1% OPHTH SOLUTION 5ML BOTTLE. OU ×4 (09:19→20:50)
[2017-11-20] MEDS: FOLIC/VIT B COMP W-C (RENAL) TABLET. PO (09:19)
[2017-11-20] MEDS: CALCITRIOL 0.25 MCG CAPSULE. PO (09:19)
[2017-11-20] MEDS ORDERED: IV NORMAL SALINE 1000ML BAG 1,000 ML IV ×2 (15:49)
[2017-11-20] MEDS ORDERED: DIALYSIS PATIENT. MC (16:00)
[2017-11-20 16:19] LABS: P ANCA <1:20 titer (Neg:<1:20)
[2017-11-20] MEDS: TAMSULOSIN 0.4 MG CAP.ER.24H. PO (20:50)
[2017-11-20] MEDS: AMOXICILLIN/K CLAV 500/125MG TABLET. PO (20:50)
[2017-11-20] MEDS: FLUCONAZOLE 100MG/50ML PREMIX 50 ML IV (20:51)
[2017-11-20] MEDS: DARBEPOETIN ALFA 60 MCG/0.3 ML DISP.SYRIN. SQ (21:18)
[2017-11-21 00:20] LABS: POC GLUCOSE 105 mg/dL (70-99)
[2017-11-21 04:33] LABS: POC GLUCOSE 101 mg/dL (70-99)
[2017-11-21 06:34] LABS: POC GLUCOSE 117 mg/dL (70-99)
[2017-11-21] MEDS: ASCORBIC ACID 500 MG TABLET FT (08:32)
[2017-11-21] MEDS: FOLIC/VIT B COMP W-C (RENAL) TABLET. PO (08:32)
[2017-11-21] MEDS: CALCITRIOL 0.25 MCG CAPSULE. PO (08:32)
[2017-11-21] MEDS: LEVOTHYROXINE 50 MCG TABLET FT (08:32)
[2017-11-21] MEDS: FINASTERIDE 5 MG TABLET. PO (08:32)
[2017-11-21] MEDS: CINACALCET HCL 30 MG TABLET PO (08:32)
[2017-11-21] MEDS: AMOXICILLIN/K CLAV 500/125MG TABLET. PO (08:33)
[2017-11-21] MEDS: CARBIDOPA/LEVODOPA 25/100MG TABLET NG ×3 (08:33→19:02)
[2017-11-21] MEDS: amLODIPine BESYLATE 5 MG TABLET FT (08:33)
[2017-11-21] MEDS: DEXAMETHASONE 0.1% OPHTH SOLUTION 5ML BOTTLE. OU ×4 (09:28→20:06)
[2017-11-21 11:49] LABS: POC GLUCOSE 116 mg/dL (70-99)
[2017-11-21] MEDS: FAMOTIDINE 20 MG TABLET. FT (11:50)
[2017-11-21] MEDS: TAMSULOSIN 0.4 MG CAP.ER.24H. PO (20:06)
[2017-11-21] MEDS: FLUCONAZOLE 100MG/50ML PREMIX 50 ML IV (20:06)
[2017-11-21] MEDS: ACETAMINOPHEN 650 MG/20.3 ML SOLUTION. PEG (20:13)
[2017-11-22 05:48] LABS: POC GLUCOSE 115 mg/dL (70-99)
[2017-11-22] MEDS: AMOXICILLIN/K CLAV 500/125MG TABLET. PO (08:13)
[2017-11-22] MEDS: FOLIC/VIT B COMP W-C (RENAL) TABLET. PO (08:13)
[2017-11-22] MEDS: CALCITRIOL 0.25 MCG CAPSULE. PO (08:13)
[2017-11-22] MEDS: CINACALCET HCL 30 MG TABLET PO (08:13)
[2017-11-22] MEDS: DEXAMETHASONE 0.1% OPHTH SOLUTION 5ML BOTTLE. OU (08:13)
[2017-11-22] MEDS: CARBIDOPA/LEVODOPA 25/100MG TABLET NG ×2 (08:13→11:25)
[2017-11-22] MEDS: amLODIPine BESYLATE 5 MG TABLET FT (08:14)
[2017-11-22] MEDS: FINASTERIDE 5 MG TABLET. PO (08:14)
[2017-11-22] MEDS: ASCORBIC ACID 500 MG TABLET FT (08:14)
[2017-11-22] MEDS: LEVOTHYROXINE 50 MCG TABLET FT (08:14)
== END 2017-11-22 12:46 | disposition hospice, home (50) | DRG 177 ==
LOC: ER 09:20 → 6 SOUTH 10:48
PROC: 0DJD8ZZ Inspection of Lower Intestinal Tract, Via Natural or Artificial Opening Endoscopic (ICD-10-PCS; 2017-11-16 07:45)
PROC: 30233N1 Transfusion of Nonautologous Red Blood Cells into Peripheral Vein, Percutaneous Approach (ICD-10-PCS; principal; 2017-11-16 08:23)
PROC: 5A1D70Z Performance of Urinary Filtration, Intermittent, Less than 6 Hours Per Day (ICD-10-PCS; 2017-11-16 08:23)
PROC: 5A1D70Z Performance of Urinary Filtration, Intermittent, Less than 6 Hours Per Day (ICD-10-PCS; 2017-11-16 08:23)
PROC: 5A1D70Z Performance of Urinary Filtration, Intermittent, Less than 6 Hours Per Day (ICD-10-PCS; 2017-11-16 08:23)
DX: J69.0 Pneumonitis due to inhalation of food and vomit (principal); N18.6 End stage renal disease; J96.01 Acute respiratory failure with hypoxia; G93.40 Encephalopathy, unspecified; I13.2 Hypertensive heart and chronic kidney disease with heart failure and with stage 5 chronic kidney disease, or end stage renal disease; D61.818 Other pancytopenia; K57.31 Diverticulosis of large intestine without perforation or abscess with bleeding; E11.22 Type 2 diabetes mellitus with diabetic chronic kidney disease; M31.30 Wegener's granulomatosis without renal involvement; N39.0 Urinary tract infection, site not specified; G20 Parkinson's disease; D46.9 Myelodysplastic syndrome, unspecified; F02.80 Dementia in other diseases classified elsewhere, unspecified severity, without behavioral disturbance, psychotic disturbance, mood disturbance, and anxiety; B95.2 Enterococcus as the cause of diseases classified elsewhere; B95.62 Methicillin resistant Staphylococcus aureus infection as the cause of diseases classified elsewhere; E03.9 Hypothyroidism, unspecified; I50.9 Heart failure, unspecified; K21.9 Gastro-esophageal reflux disease without esophagitis; N40.0 Benign prostatic hyperplasia without lower urinary tract symptoms; R13.12 Dysphagia, oropharyngeal phase; R32 Unspecified urinary incontinence; Z51.5 Encounter for palliative care; Z85.46 Personal history of malignant neoplasm of prostate; Z87.891 Personal history of nicotine dependence; Z93.1 Gastrostomy status; Z95.0 Presence of cardiac pacemaker; Z99.2 Dependence on renal dialysis
CPT/HCPCS: 36415; 70450; 71045; 80048; 80053; 81001; 82274; 82962; 83520; 83605; 85007; 85014; 85018; 85025; 85027; 85610; 85730; 86021; 86850; 86900; 86901; 86920; 87040; 87086; 87186; 87641; 87804; 87804-59; 92526-GN; 92610-GN; 93005; 96365; 97116-GP; 97162-GP; 97164-GP; 97166-GO; 97535-GO; 99285; 99285-25; J0692; J0881; J1450; J1756; J1956; J2543; J2704; J3370; J7030; J7050; P9016; P9612